=== PATIENT | female | born 1970 | race Caucasian/White ===

== ENCOUNTER 2021-09-30 20:22 | Inpatient (IN) | payer MEDICAID, SELFPAY ==
[2021-09-30] VITALS (9 sets, daily range): BP systolic 140–178; BP diastolic 75–112; PULSE 94–111; RESP 21–31; TEMP 37.2; O2SAT 88–99
--- NOTE | ~2021-09-30 | XR_ITS ---
XR chest 1V portable DATE: 09/30/2021 20:55 INDICATION: Cough, shortness of breath. Smoker. TECHNIQUE: Portable AP chest on 09/30/2021 at 2043 hours COMPARISON: 09/27/2016 two-view chest FINDINGS: Cardiomegaly. There is pulmonary vascular congestion and redistribution. Is mild prominence of the minor fissure suggesting subpleural edema. Yasmin B-lines are noted consistent with pulmonary interstitial edema. There may be slight right pleural effusion. No pneumothorax. Aortic arch calcification. Diffuse osteopenia. IMPRESSION: Congestive heart failure with pulmonary interstitial and subpleural edema Reviewed, dictated and finalized at location J. PREPARATION SUPERVISOR
--- NOTE | ~2021-09-30 | CT_ITS ---
EXAMINATION: CTA chest PE protocol DATE: 09/30/2021 22:22 INDICATION: Shortness of breath. Productive cough. Elevated d-dimer. TECHNIQUE: Computed tomography angiography (CTA) of the chest was performed with 100 mL Omnipaque-350 intravenous contrast timed to evaluate the pulmonary arteries. Coronal maximum intensity projection 3D-reconstructions were created by the technologist. Automated exposure control and iterative reconst ruction technique were employed. Exam dose: 203.87 mGy-cm total exam DLP. COMPARISON: 09/30/2021 portable AP chest FINDINGS: There is diagnostic contrast enhancement of the pulmonary arteries and no evidence of pulmo nary embolism. No thoracic aortic aneurysm is evident. Cardiomegaly. No pericardial effusion. Very small right pleural effusion. There are scattered mild bilateral patchy pulmonary infiltrates, mildly involving right upper lobe an d to a greater extent both lower lobes. There are thickened interlobular septa. IMPRESSION: Cardiomegaly, small right pleural effusion, bilateral pulmonary patchy infiltrates and i nterstitial thickening suggesting pulmonary edema; pneumonia is not excluded No evidence of pulmonary embolism Reviewed, dictated and finalized at Location [facility]. Reviewed, dictated and finalized at location J. L MAKER IMPRESSION: Cardiomegaly, small right pleural effusion, bilateral pulmonary pa tchy infiltrates and interstitial thickening suggesting pulmonary edema; pneumo chetna is not excluded No evidence of pulmonary embolism
--- NOTE | ~2021-09-30 | US_ITS ---
EXAMINATION: US venous doppler LE DATE: 10/01/2021 11:43 INDICATION: Right lower limb swelling and pain TECHNIQUE: Grayscale ultrasound images without and with compression and Doppler ultrasound images of the right lower extremity veins were obtained. COMPARISON: None. FINDINGS: The visualized portions of right common femoral vein, profunda (deep) femoral vein, femoral vein, pop liteal vein, peroneal trunk, posterior tibial veins, peroneal veins, gastrocnemius vein and greater s aphenous vein outflow are patent. IMPRESSION: 1. No deep venous thrombosis in the right lower limb. Reviewed, dictated and finalized at location A. LTY DEAN
--- NOTE | 2021-09-30 20:32 | ECG_ITS ---
Measurements Intervals [place] Rate: 110 P: 55 FL: 155 QRS: -30 QRSD: 80 T: 137 QT: 316 QTc: 428 Interpretive Statements SINUS TACHYCARDIA LEFT ATRIAL ENLARGEMENT LEFT VENTRICULAR HYPERTROPHY AND ST-T CHANGE BORDERLINE ST-T WAVE ABNORMALITY- INF/HIGH LAT LEADS ABNORMAL ECG Electronically Signed On 10-01-2021 6:11:27 GEAR MACHINE OPERATOR by Adam Hameed D.O.
--- NOTE | 2021-09-30 20:39 | ED.SOB ---
HPI - SOB/Dyspnea General Chief Complaint: Shortness of Breath/Dyspnea Stated Complaint: dyspnea Time Seen by Provider: 09/30/21 20:28 Source: patient and RN notes reviewed Mode of arrival: EMS Limitations: no limitations History of Present Illness HPI Narrative: This is a 50 year old female smoker who presents for evaluation of shortness of breath. Patient states over 1 month ago she was started on antibiotics for sore throat. She felt mildly better but she later developed sinus congestion with drainage and a productive cough. Her cough has progressively worsened. Last night her symptoms worsened. She states when she lays back she feel like she is having significant postnasal drainage and shortness of breath. She also reports developed sweats last night and she became clammy. She denies chest pain, vomiting, abdominal pain, leg swelling or diarrhea. She has not received care after getting prescribed antibiotics. She denies history of asthma, copd or lung disease. Related Data Allergies Allergy/AdvReac Type Severity Reaction Status Date / Time No Known Allergies Allergy Verified 09/30/21 20:34 Review of Systems Review of Systems: All systems reviewed & are unremarkable except as noted in HPI and below Constitutional: Constitutional: Reports fatigue and Reports fever(s) ENT: Reports sore throat Cardiovascular: Cardiovascular: Denies chest pain Respiratory: Respiratory: Reports cough and Reports dyspnea Gastrointestinal: Gastrointestinal: Denies abdominal pain, Reports nausea and Denies vomiting PMFSH Past Medical History Medical History (Updated 10/01/21 @ 00:36 by Shahla Phan MD) Diabetes mellitus Surgical History Surgical History (Updated 09/30/21 @ 20:42 by Shahla Phan MD) History of hysterectomy Family History Family History (Updated 05/15/14 @ 07:13 by DOCTOR UNKNOWN) Mother Family history of arthritis Social History Social History (Updated 09/30/21 @ 20:42 by Shahla Phan MD) Smoking packs per day: 1 Smoking cigarettes per day: 20.0 Smoking status: Current every day smoker Alcohol intake: never Exam Const: General: alert and ill appearing Orientation/consciousness: patient oriented x3 Eyes: EOM: EOMs intact bilaterally Chest: Chest palpation & inspection: normal inspection of the chest Resp: Effort & Inspection: no retractions and tachypneic Auscultation: wheezes Cardio: Rate: tachycardic Rhythm: regular rhythm Heart sounds: no murmurs GI: GI Palp: Yes Soft to palpation, No Tenderness to palpation present (GI) and No Guarding due to palpation present (GI) Auscultation: normal bowel sounds Skin: General skin exam: normal color Rashes: no rashes Neuro: General: patient oriented x3, moves all extremities and CN's II-XI intact bilaterally Extrem: General: normal to inspection Psych: Mental Status: mental status grossly normal Affect: normal affect Course Reevaluation(s) Reevaluation #1: I Discussed with patient that she will be admitted . She has been found to have chf. Date: 10/01/21 Time: 00:33 Consultations Consultation #1: I have discussed case with DR. shah. She accepts patient to IMU. She recommends giving patient antibiotics for possible pneumonia due to leukocytosis and low grade fever Date: 10/01/21 Time: 00:34 Vital Signs Vital signs: Vital Signs Temperature 99.0 F 09/30/21 20:25 Pulse Rate 111 H 09/30/21 20:25 Respiratory Rate 30 H 09/30/21 20:25 Blood Pressure 178/112 H 09/30/21 20:25 Pulse Oximetry 93 09/30/21 20:25 Temperature 99.0 F 09/30/21 20:25 Pulse Rate 96 10/01/21 01:29 Respiratory Rate 26 H 10/01/21 01:29 Blood Pressure 140/83 10/01/21 01:29 Pulse Oximetry 94 10/01/21 01:29 MDM - SOB/Dyspnea Lab Data Attestation: I reviewed the patient's lab results. Result diagrams: 09/30/21 21:09 09/30/21 21:09 Labs: Lab Results 09/30/21
[2021-09-30] MEDS: methylPREDNISolone SOD SUCC 125 MG VIAL IV PUSH (20:47)
[2021-09-30] MEDS: ONDANSETRON INJ 4 MG/2 ML VIAL IV PUSH (20:47)
[2021-09-30] MEDS: IPRATROPIUM BR 0.02% INH SOLN 0.5 MG/2.5 ML VIAL INHALATION (20:56)
[2021-09-30] MEDS: ALBUTEROL SULFATE NEB 2.5 MG/0.5 ML INH 5 MG INHALATION (20:56)
[2021-09-30 21:08] LABS: Alveolar/Arterial O2 Gradient 110.5 mmHg; Base Excess ABG -0.9 mEq/l (+/-2.0); Carboxyhemoglobin 1.7 % THb (0-2.0); Fractional Inspired Oxygen 28 %; HCO3 ABG 22.2 mEq/l (22.0-26.0); Methemoglobin ABG 0.2 %THb (0-1.5); Oxygen Content ABG 19.4 %vol (16.0-22.0); PCO2 ABG 32.9 mmHg (35.0-45.0); PO2 ABG 50.3 mmHg (80.0-100.0); Reduced Hemoglobin 12.2 %THb (0-5.0); Total Hemoglobin 16.1 g/dL (12.0-18.0); pH ABG 7.447 (7.350-7.450)
[2021-09-30 21:09] LABS: Oxygen Saturation ABG 87.6 % (95.0-100.0)
[2021-09-30 21:10] LABS: Oxyhemoglobin 85.9 % THb (90.0-100.0); Site Drawn RIGHT BRACHIAL
[2021-09-30 21:11] LABS: Device NASAL CANNULA
[2021-09-30 21:17] LABS: Basophils Absolute Auto 0.1 K/mm3 (0.0-0.1); Basophils Percent Auto 0.8 % (0.2-1.2); Eosinophils Absolute Auto 0.3 K/mm3 (0-0.3); Hematocrit 48.6 % (37.0-47.0); Hemoglobin 16.2 g/dL (12.0-15.0); Immature Granulocyte Absolute 0.05 K/mm3 (0.00-0.031); Immature Granulocyte Percent A 0.4 % (0-0.5); Lymphocytes Absolute Auto 1.48 K/mm3 (0.9-3.2); Lymphocytes Percent Auto 10.7 % (18.3-44.2); Mean Corpuscular HGB Conc 33.3 g/dl (32-36); Mean Corpuscular Hemoglobin 29.8 pg (26-34); Mean Corpuscular Volume 89.5 fl (80-100); Mean Platelet Volume 10.8 fl (7.4-10.4); Monocytes Absolute Auto 0.7 K/mm3 (0.1-0.6); Monocytes Percent Auto 5.1 % (2.6-8.5); Neutrophils Absolute Auto 11.2 K/mm3 (1.3-6.7); Platelet Count Result 332 k/mm3 (150-375); Red Blood Count 5.43 M/mm3 (4.2-5.4); Red Cell Distribution Width 13.7 % (11.5-14.5); White Blood Count 13.8 K/mm3 (4.5-10.0)
[2021-09-30 21:25] LABS: Lactic Acid Reflex 1.7 mmol/L (0.7-2.1)
[2021-09-30 21:27] LABS: INR 1.1; Prothrombin Time 14.2 Seconds (11.1-14.7)
[2021-09-30 21:28] LABS: Alanine Aminotransferase 152 U/L (4-35); Albumin Level 3.6 g/dL (3.5-5.1); Alkaline Phosphatase 194 U/L (38-126); Anion Gap 6 mmol/L (8-16); Aspartate Amino Transferase 88 U/L (14-36); Bilirubin,Total 0.8 mg/dL (0.2-1.3); Blood Urea Nitrogen 13 mg/dL (7-17); Calcium 8.3 mg/dL (8.4-10.2); Carbon Dioxide 28 mmol/L (22-30); Chloride 99 mmol/L (98-107); Estimated CRCL calculation 109 ml/min; Estimated Glomerular Filt Rate > 60; Glucose 209 mg/dL (65-110); Magnesium 1.8 mg/dL (1.6-2.3); Partial Thromboplastin Time 24.6 SECONDS (22.3-36.8); Potassium 3.4 mmol/L (3.4-5.0); Sodium 133 mmol/L (137-145)
[2021-09-30 21:31] LABS: Beta-Hydroxybutyrate/Acetoacetate 0.35 mmol/L (0.02-0.27)
[2021-09-30 21:43] LABS: Add Urine Microscopic? YES; Appearance Urine Clear (Clear); Bilirubin Urine Negative (Negative); Blood Urine Negative (Negative); Color Urine Yellow (Yellow); Glucose Urine UA 3+ mg/dL (Negative); Ketones Urine Trace mg/dL (Negative); Leukocyte Esterase Ur Negative LEU/UL (Negative); Mucus Urine Rare /lpf; Nitrate Urine Negative (Negative); Protein Urine 2+ mg/dL (Negative); RBC Urine 0-2 /hpf (0-2); Squamous Epithelial Cell Urine Occasional /hpf (Few); WBC Urine 0-3 /hpf
[2021-09-30 21:44] LABS: Specific Grav Ur 1.032 (1.001-1.035)
[2021-09-30 21:47] LABS: NT Pro B Type Natriuretic Pept 7120 pg/mL (5-100); Troponin I 0.062 ng/mL (0.000-0.034)
--- NOTE | 2021-09-30 22:12 | PC.NURSE ---
Pt to CT at this time.
[2021-09-30 22:14] LABS: SARS-CoV-2 RNA PCR Negative
[2021-09-30] MEDS: FUROSEMIDE INJ 40 MG/4 ML VIAL IV PUSH (22:31)
[2021-10-01] VITALS (23 sets, daily range): BP systolic 126–149; BP diastolic 56–91; PULSE 84–103; RESP 18–28; TEMP 35.9–37.1; O2SAT 90–97; BMI 22.3
[2021-10-01] MEDS: NITROGLYCERIN OINTMENT 1 INCH DOSE TRANSDERM (01:01)
--- NOTE | 2021-10-01 03:02 | ADMGEN ---
This patient, Radha Powell, was admitted to IMU Room 205-01. Patient/family oriented to hospital policies and general routines including ID bracelet, bed and alarms, visiting hours, pain management, procedures, bathroom and other care routines, personal items, smoking policy, room service/diet, and visiting hours. Information on how to activate the Rapid Response Team has been discussed. Patient/Family are encouraged to report perceived risks to care and to ask questions if they do not understand what they are told or what they should do.
--- NOTE | 2021-10-01 04:51 | PM.IMHP ---
H&P: HPI History of Present Illness Date/Time: 10/01/21 02:00 Chief Complaint: Shortness of breath and cough for 1 month Narrative: 50-year-old female with past medical history type 1 diabetes mellitus who presented to the ER from home due to cough and shortness of breath for 1 month. The patient reports and she has had intermittent wheezing that is worse with lying supine and paroxysmal nocturnal dyspnea for 1 month. She reports that her cough is productive of thick clear sputum. She denies any weight gain in fact states that she has been having a mild weight loss over the last few months. She reports that her clothes feel looser. She states that she still has a good appetite and attributes her weight loss to living and active lifestyle. She does report intermittent dyspnea on exertion for the last month. She denies having any chest pain. She is unsure if she has been having any palpitations. She has noticed right calf pain for the last several days with some increased swelling of the right lower extremity. She has had intermittent bilateral ankle swelling on and off for years. She has been having some chills today. She reports that when she lays down to sleep she has been having episodes of diaphoresis and will wake up panic in have to sit on the edge of the bed to catch her breath. She has not been having any fevers. She has been having some mild nausea but denies any vomiting. She denies any recent ill contacts. She lives at home with her son in 2 grand children. She does smoke 1 pack of cigarettes per day. She has never been diagnosed with COPD. Her symptoms have not improved despite Robitussin and Mucinex. She has not seen a physician regarding her symptoms over the last month. He last saw In May when she thought she had strep throat. The patient reports that she had COVID-06 August 2020. She is not vaccinated against COVID. She has not had any recent ill contacts. Review of Systems Review of Systems: 12 systems were reviewed with pertinent positives and negatives per HPI. Except as documented in the HPI, all other systems were reviewed and are negative. [facility] Past Medical History Medical History (Updated 10/01/21 @ 05:32 by Dariela Laboy DO) Diabetes mellitus Diabetic nephropathy associated with type 1 diabetes mellitus Hyperlipidemia Tobacco use disorder, continuous Vitamin D deficiency Surgical History Surgical History (Updated 10/01/21 @ 05:24 by Dariela Laboy DO) History of total abdominal hysterectomy and bilateral salpingo-oophorectomy Due to endometriosis and uterine fibroids Family History Family History (Updated 10/01/21 @ 05:25 by Dariela Laboy DO) Mother Osteoarthritis In good health Father In good health Social History Social History (Updated 10/01/21 @ 05:26 by Dariela Laboy DO) Social History: The patient lives at home with her son, grandson and granddaughter. She has 2 other adult children. 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 She has smoked 1 pack of cigarettes per day since the age of 15. She reports occasional alcohol use in moderation. She denies listed substance use. Smoking packs per day: 1 Smoking cigarettes per day: 20.0 Years smoked: 35 Smoking pack-years: 35.00 Smoking status: Current every day smoker Tobacco type: cigarettes Alcohol intake: never Substance use: never Spiritual care concerns: No Comments The patient reports that her mother is in her 70s and is in good health. She reports that her father is in his early 80s and in good health. Meds Home Medications and Allergies Home Medications Medication Instructions Recorded Confirmed Type calcium carbonate 1,200 mg PO DAILY 10/01/21 10/01/21 History fivre-hhfgfalp-pem-turp-pet [Vicks 1 ea TOPICAL BID 10/01/21 10/01/21 History Vaporub] cholecalciferol (vitamin D3) 125 mcg PO DAILY 10/01/21 10/01/21 History [Vitamin
[2021-10-01 05:56] LABS: Cholesterol 149 mg/dL (0-200); HDL Direct 32 mg/dL; Triglycerides 53 mg/dL (<150)
[2021-10-01 06:07] LABS: LDL Cholesterol Direct 115 mg/dL
[2021-10-01 06:15] LABS: Troponin I 0.063 ng/mL (0.000-0.034)
[2021-10-01] MEDS: IPRATROPIUM BR 0.02% INH SOLN 0.5 MG/2.5 ML VIAL INHALATION ×3 (07:58→21:51)
[2021-10-01] MEDS: ALBUTEROL SULFATE NEB 2.5 MG/0.5 ML INH 5 MG INHALATION ×3 (07:58→21:51)
[2021-10-01 08:02] LABS: Hemoglobin A1C 11.9 % (<5.7)
[2021-10-01 08:31] LABS: Glucose Point of Care 439 mg/dl (65-105)
[2021-10-01] MEDS: ASPIRIN 81 MG CHEWABLE TABLET PO (08:47)
[2021-10-01] MEDS: CALCIUM CARBONATE (OSCAL) 500 MG TABLET 1000 MG PO (08:47)
[2021-10-01] MEDS: INSULIN GLARGINE (*BKC) 100 UNITS/ML 30 UNITS SUB-Q (08:47)
[2021-10-01] MEDS: FUROSEMIDE INJ 40 MG/4 ML VIAL IV PUSH ×2 (08:48→22:14)
[2021-10-01] MEDS: guaiFENesin 12 HR 600 MG TABCR PO ×2 (08:48→22:14)
[2021-10-01] MEDS: CHOLECALCIFEROL 1,000 UNITS TABLET 5000 UNITS PO (08:48)
--- NOTE | 2021-10-01 10:27 | PCNWS ---
Weekly nutritional screen. Pt screened in for MST 2. Spoke to pt via phone who reports that she has unintentionally lost approximately 10lbs since April of 2021. Pt associated the wt loss with working a lot and reported that she probably wasn't eating enough. Pt reports that her appetite is improving. Per EMR, pt is on a heart healthy diet and dietary supplement of ensure compact BID providing an additional 220kcal and 9g of protein. Pt agreed to drink dietary supplement. Per EMR, reported intake is 100%. Patient is tolerating current diet with adequate intake. No weight loss reported at this time. No nutritional needs at this time.
[2021-10-01] MEDS: INSULIN ASPART (*BKC) 100 UNITS/ML 12 UNITS SUB-Q (10:34)
--- NOTE | 2021-10-01 11:09 | PM.IMPN ---
Progress Note: A&P Assessment and Plan (1) Acute respiratory failure with hypoxia: Code(s): J96.01 - Acute respiratory failure with hypoxia Status: Acute Assessment and Plan: Most likely related to pulmonary edema secondary to CHF exacerbation cannot rule out pneumonia Continue empiric IV antibiotics pending culture Continue IV diuresis (2) Tobacco use disorder, continuous: Code(s): F17.209 - Nicotine dependence, unspecified, with unspecified nicotine-induced disorders Status: Acute Assessment and Plan: Counseling (3) Congestive heart failure: Qualifiers: Heart failure chronicity: acute Heart failure type: unspecified Qualified Code(s): I50.9 - Heart failure, unspecified Code(s): I50.9 - Heart failure, unspecified Status: Acute Assessment and Plan: Cardiology consult Echo IV Lasix Daily weight (4) Leukocytosis: Qualifiers: Leukocytosis type: unspecified Qualified Code(s): D72.829 - Elevated white blood cell count, unspecified Code(s): D72.829 - Elevated white blood cell count, unspecified Status: Acute Assessment and Plan: Probable pneumonia continue IV antibiotic pending culture (5) Transaminitis: Code(s): R74.01 - Elevation of levels of liver transaminase levels Status: Acute Assessment and Plan: Most likely related to hepatic congestion secondary to CHF monitor (6) Type 1 diabetes mellitus with hyperglycemia: Code(s): E10.65 - Type 1 diabetes mellitus with hyperglycemia Status: Acute Assessment and Plan: Uncontrolled continue Lantus continue insulin sliding scale Added lispro 6 units subcutaneous t.i.d. Subjective Date/time seen: 10/01/21 11:09 Interval history: 50 years old female presented to the hospital with 1 month history of shortness of breath and cough patient also complained of lower extremity swelling at the ER patient was found to have leukocytosis elevated D-dimer CT scan of the chest was done shows multifocal pneumonia versus pulmonary edema COVID-19 was negative cardiology was consulted patient was started on IV diuresis IV antibiotics Patient feels weak short of breath Patient denies fever headache chest pain I am seeing the patient for shortness of breath Exam Narrative: Alert Chest bilateral crackles Abdomen nontender nondistended CVS S1 + S2 Lower significant extremity edema Objective Data Vital Signs Vital Signs: Vital Signs - 24 hr 09/30/21 20:25 09/30/21 20:34 09/30/21 20:45 Temperature 99.0 F Pulse Rate 111 H 104 H Respiratory Rate 30 H 21 H Blood Pressure 178/112 H Pulse Oximetry 93 93 09/30/21 20:50 09/30/21 20:53 09/30/21 21:08 Temperature Pulse Rate 102 H 97 Respiratory Rate 27 H 28 H Blood Pressure 167/98 H Pulse Oximetry 88 L 92 99 09/30/21 21:15 09/30/21 22:30 09/30/21 23:27 Temperature Pulse Rate 97 94 104 H Respiratory Rate 31 H 25 H 28 H Blood Pressure 144/79 H 140/75 Pulse Oximetry 96 96 10/01/21 00:28 10/01/21 01:29 10/01/21 02:23 Temperature Pulse Rate 93 96 89 Respiratory Rate 24 H 26 H 28 H Blood Pressure 149/89 H 140/83 142/81 H Pulse Oximetry 96 94 95 10/01/21 02:59 10/01/21 03:10 10/01/21 04:00 Temperature 96.7 F L Pulse Rate 86 90 93 Respiratory Rate 24 H 20 Blood Pressure 126/64 137/82 Pulse Oximetry 97 90 90 10/01/21 06:00 10/01/21 07:42 10/01/21 08:06 Temperature 97.1 F L Pulse Rate 84 96 87 Respiratory Rate 22 H 20 Blood Pressure 146/75 H Pulse Oximetry 94 10/01/21 08:08 Temperature Pulse Rate Respiratory Rate Blood Pressure Pulse Oximetry 94 Intake/Output Intake/Output: Intake & Output 09/28/21 09/29/21 09/30/21 10/01/21 23:59 23:59 23:59 23:59 Intake Total 890 Output Total 1200 Balance -310 Meds/Results Medications: Active Medications Generic Name Dose Route Start Last Admin Trade Name Freq PRN [place]
[2021-10-01 11:52] LABS: Basophils Percent Auto 0.4 % (0.2-1.2); Eosinophils Percent Auto 0.1 % (0-4.4); Hematocrit 43.4 % (37.0-47.0); Hemoglobin 14.5 g/dL (12.0-15.0); Immature Granulocyte Absolute 0.05 K/mm3 (0.00-0.031); Immature Granulocyte Percent A 0.5 % (0-0.5); Lymphocytes Absolute Auto 0.94 K/mm3 (0.9-3.2); Lymphocytes Percent Auto 8.6 % (18.3-44.2); Mean Corpuscular HGB Conc 33.4 g/dl (32-36); Mean Corpuscular Volume 89.9 fl (80-100); Mean Platelet Volume 11.3 fl (7.4-10.4); Monocytes Absolute Auto 0.4 K/mm3 (0.1-0.6); Monocytes Percent Auto 3.9 % (2.6-8.5); Neutrophils Absolute Auto 9.4 K/mm3 (1.3-6.7); Neutrophils Percent Auto 86.5 % (45.5-73.1); Platelet Count Result 288 k/mm3 (150-375); Red Blood Count 4.83 M/mm3 (4.2-5.4); Red Cell Distribution Width 13.9 % (11.5-14.5); White Blood Count 10.9 K/mm3 (4.5-10.0)
[2021-10-01 12:02] LABS: Alanine Aminotransferase 113 U/L (4-35); Alkaline Phosphatase 147 U/L (38-126); Anion Gap 6 mmol/L (8-16); Aspartate Amino Transferase 55 U/L (14-36); Bilirubin,Total 0.6 mg/dL (0.2-1.3); Blood Urea Nitrogen 17 mg/dL (7-17); Calcium 8.2 mg/dL (8.4-10.2); Carbon Dioxide 30 mmol/L (22-30); Chloride 97 mmol/L (98-107); Estimated CRCL calculation 71 ml/min; Estimated Glomerular Filt Rate > 60; Glucose 606 mg/dL (65-110); Potassium 3.9 mmol/L (3.4-5.0); Sodium 133 mmol/L (137-145)
[2021-10-01] MEDS: cefTRIAXone 2 GM in SODIUM CHLORIDE 0.9% IV 100 ML 200 ML IVPB (12:33)
[2021-10-01] MEDS: INSULIN ASPART (*BKC) 100 UNITS/ML 25 UNITS SUB-Q (12:36)
[2021-10-01 12:41] LABS: Glucose Point of Care > 500 mg/dl (65-105)
[2021-10-01 14:01] LABS: Glucose Point of Care > 500 mg/dl (65-105)
[2021-10-01] MEDS: INSULIN ASPART (*BKC) 100 UNITS/ML 10 UNITS SUB-Q (15:08)
[2021-10-01] MEDS: INSULIN ASPART (*BKC) 100 UNITS/ML 6 UNITS SUB-Q (17:45)
[2021-10-01] MEDS: INSULIN ASPART (*BKC) 100 UNITS/ML SUB-Q (17:45)
[2021-10-01 18:00] LABS: Glucose Point of Care 220 mg/dl (65-105)
[2021-10-01 22:59] LABS: Glucose Point of Care 235 mg/dl (65-105)
[2021-10-02] VITALS (24 sets, daily range): BP systolic 130–157; BP diastolic 55–82; PULSE 76–110; RESP 16–20; TEMP 36.6–36.9; O2SAT 91–98
[2021-10-02] MEDS: IPRATROPIUM BR 0.02% INH SOLN 0.5 MG/2.5 ML VIAL INHALATION ×4 (02:39→20:05)
[2021-10-02] MEDS: ALBUTEROL SULFATE NEB 2.5 MG/0.5 ML INH 5 MG INHALATION ×4 (02:39→20:05)
--- NOTE | 2021-10-02 06:00 | ECHO_ITS ---
Patient Info Name: Radha Powell Age: 50 years : 1970 Gender: Female Ht: 67 in Wt: 142 lbs BSA: 1.75 m2 HR: 92 bpm BP: 130 / 55 mmHg Heart Rhythm: Sinus Rhythm Technical Quality: Good Exam Date: 10/02/2021 9:09 AM Exam Location: [facility] Room: Patient Status: Inpatient Admit Date: 10/01/2021 Staff Ordering Physician: Shahla Phan MD Inpatient Coder: Zoya Gong RDCS Attending Provider: Dariela Laboy DO Referring Physician: Emilie RIDLEY; Exam Type: CA echo doppler color flow Study Info Indications - chf sob Complete two-dimensional, color flow and Doppler transthoracic echocardiogram is performed. Summary 1. Complete two-dimensional, color flow and Doppler transthoracic echocardiogram is performed. 2. Mild left ventricular enlargement and hypertrophy. Severe global hypokinesis with no focal wall motion abnormalities. Ejection fraction 15-20%. Grade 2 diastolic dysfunction is present. 3. Moderate right ventricular enlargement moderate hypokinesis. 4. Left atrial chamber dimension is severely enlarged. 5. Right atrial chamber dimension is moderately enlarged. 6. There is mild mitral valve regurgitation. 7. There is mild tricuspid valve regurgitation. 8. There is mild pulmonic regurgitation. 9. Moderate pulmonary hypertension, estimated pulmonary arterial systolic pressure is 57 mmHg. 10. Dilated inferior vena cava with <50% collapse upon inspiration consistent with significantly elevated right atrial pressure, 20 mmHg. 11. There appears to be a very small ASD present with a small amount of dyzm-si-[id number] shunting by color flow and Doppler. 12. Normal sinus rhythm. 13. Global longitudinal strain of the left ventricle is severely abnormal at -9% consistent with severe systolic dysfunction. There is apical sparing, which can be seen with amyloid cardiomyopathy. 14. Consider further evaluation for cardia amyloid. Left Ventricle Left ventricular chamber dimension is mildly enlarged. Left ventricular systolic function is severely reduced, estimated at 15-20%. There is mildly increased left ventricular wall thickness. Left ventricular septal wall motion is normal. The left ventricular diastolic function is grade II diastolic dysfunction. Global longitudinal strain is severely elevated at -9 %. Right Ventricle Right ventricular chamber dimension is moderately enlarged. Right ventricular systolic function is reduced. Left Atria Left atrial chamber dimension is severely enlarged. Right Atria Right atrial chamber dimension is moderately enlarged. Aortic Valve The aortic valve is trileaflet. There is no aortic valve sclerosis. There is no aortic valve stenosis. There is no aortic valve regurgitation. Pulmonic Valve The pulmonic valve is normal. There is no pulmonic valve stenosis. There is mild pulmonic regurgitation. Mitral Valve The mitral valve has thickened leaflets. There is no mitral valve stenosis. There is mild mitral valve regurgitation. Tricuspid Valve The tricuspid valve leaflets are normal. There is no significant tricuspid valve stenosis. There is mild tricuspid valve regurgitation. Moderate pulmonary hypertension, estimated pulmonary arterial systolic pressure is 57 mmHg. Pericardium/Pleural The pericardium appears normal. There is no pericardial effusion. Inferior Vena Cava Dilated inferior vena cava with <50% collapse upon inspiration consistent with significantly elevat
[2021-10-02 06:03] LABS: Alanine Aminotransferase 116 U/L (4-35); Alkaline Phosphatase 125 U/L (38-126); Anion Gap 6 mmol/L (8-16); Aspartate Amino Transferase 62 U/L (14-36); Bilirubin,Total 0.7 mg/dL (0.2-1.3); Blood Urea Nitrogen 18 mg/dL (7-17); Calcium 8.2 mg/dL (8.4-10.2); Carbon Dioxide 29 mmol/L (22-30); Chloride 99 mmol/L (98-107); Estimated CRCL calculation 93 ml/min; Estimated Glomerular Filt Rate > 60; Glucose 244 mg/dL (65-110); Potassium 3.4 mmol/L (3.4-5.0); Sodium 134 mmol/L (137-145)
[2021-10-02 06:06] LABS: Basophils Absolute Auto 0.1 K/mm3 (0.0-0.1); Basophils Percent Auto 0.8 % (0.2-1.2); Eosinophils Absolute Auto 0.3 K/mm3 (0-0.3); Eosinophils Percent Auto 3.4 % (0-4.4); Hematocrit 42.3 % (37.0-47.0); Hemoglobin 14.3 g/dL (12.0-15.0); Immature Granulocyte Absolute 0.04 K/mm3 (0.00-0.031); Immature Granulocyte Percent A 0.4 % (0-0.5); Immature Platelet Fraction Pct 8.2 % (0.9-11.2); Lymphocytes Absolute Auto 1.98 K/mm3 (0.9-3.2); Lymphocytes Percent Auto 19.5 % (18.3-44.2); Mean Corpuscular HGB Conc 33.8 g/dl (32-36); Mean Corpuscular Volume 88.9 fl (80-100); Mean Platelet Volume 12.3 fl (7.4-10.4); Monocytes Absolute Auto 0.7 K/mm3 (0.1-0.6); Monocytes Percent Auto 6.8 % (2.6-8.5); Neutrophils Percent Auto 69.1 % (45.5-73.1); Platelet Count Result 229 k/mm3 (150-375); Red Blood Count 4.76 M/mm3 (4.2-5.4); Red Cell Distribution Width 13.9 % (11.5-14.5); White Blood Count 10.1 K/mm3 (4.5-10.0)
[2021-10-02 08:01] LABS: Glucose Point of Care 233 mg/dl (65-105)
[2021-10-02] MEDS: INSULIN ASPART (*BKC) 100 UNITS/ML SUB-Q ×2 (09:34→21:21)
[2021-10-02] MEDS: ASPIRIN 81 MG CHEWABLE TABLET PO (09:34)
[2021-10-02] MEDS: ENOXAPARIN 40 MG/0.4 ML SYRINGE SUB-Q (09:35)
[2021-10-02] MEDS: CALCIUM CARBONATE (OSCAL) 500 MG TABLET 1000 MG PO (09:35)
[2021-10-02] MEDS: CHOLECALCIFEROL 1,000 UNITS TABLET 5000 UNITS PO (09:35)
[2021-10-02] MEDS: INSULIN ASPART (*BKC) 100 UNITS/ML 6 UNITS SUB-Q ×2 (09:35→18:12)
[2021-10-02] MEDS: FUROSEMIDE INJ 40 MG/4 ML VIAL IV PUSH ×2 (09:36→21:21)
[2021-10-02] MEDS: guaiFENesin 12 HR 600 MG TABCR PO ×2 (09:36→21:35)
[2021-10-02] MEDS: INSULIN GLARGINE (*BKC) 100 UNITS/ML 30 UNITS SUB-Q (09:36)
--- NOTE | 2021-10-02 09:36 | PM.IMPN ---
Progress Note: A&P Assessment and Plan (1) Acute respiratory failure with hypoxia: Code(s): J96.01 - Acute respiratory failure with hypoxia Status: Acute Assessment and Plan: Most likely related to pulmonary edema secondary to CHF exacerbation cannot rule out pneumonia Continue empiric IV antibiotics pending culture Continue IV diuresis (2) Tobacco use disorder, continuous: Code(s): F17.209 - Nicotine dependence, unspecified, with unspecified nicotine-induced disorders Status: Acute Assessment and Plan: Counseling (3) Congestive heart failure: Qualifiers: Heart failure chronicity: acute Heart failure type: unspecified Qualified Code(s): I50.9 - Heart failure, unspecified Code(s): I50.9 - Heart failure, unspecified Status: Acute Assessment and Plan: Cardiology consult Echo IV Lasix Daily weight (4) Leukocytosis: Qualifiers: Leukocytosis type: unspecified Qualified Code(s): D72.829 - Elevated white blood cell count, unspecified Code(s): D72.829 - Elevated white blood cell count, unspecified Status: Acute Assessment and Plan: Probable pneumonia continue IV antibiotic pending culture (5) Transaminitis: Code(s): R74.01 - Elevation of levels of liver transaminase levels Status: Acute Assessment and Plan: Most likely related to hepatic congestion secondary to CHF monitor (6) Type 1 diabetes mellitus with hyperglycemia: Code(s): E10.65 - Type 1 diabetes mellitus with hyperglycemia Status: Acute Assessment and Plan: Uncontrolled continue Lantus continue insulin sliding scale Added lispro 6 units subcutaneous t.i.d. (7) COPD exacerbation: Code(s): J44.1 - Chronic obstructive pulmonary disease with (acute) exacerbation Status: Acute Assessment and Plan: Present on admission added nebulizer treatment if no improvement will add IV steroids Subjective Date/time seen: 10/02/21 09:36 Interval history: 50 years old female presented to the hospital with 1 month history of shortness of breath and cough patient also complained of lower extremity swelling at the ER patient was found to have leukocytosis elevated D-dimer CT scan of the chest was done shows multifocal pneumonia versus pulmonary edema COVID-19 was negative cardiology was consulted patient was started on IV diuresis IV antibiotics Patient feels weak short of breath better than yesterday on oxygen Patient has history of smoking Patient denies fever headache chest pain I am seeing the patient for shortness of breath Exam Narrative: Alert Chest bilateral crackles Abdomen nontender nondistended CVS S1 + S2 Lower significant extremity edema Objective Data Vital Signs Vital Signs: Vital Signs - 24 hr 10/01/21 10:00 10/01/21 12:00 10/01/21 14:00 Temperature 97.2 F L Pulse Rate 93 88 93 Respiratory Rate 18 Blood Pressure 134/66 Pulse Oximetry 96 10/01/21 14:23 10/01/21 16:00 10/01/21 18:00 Temperature 97.2 F L Pulse Rate 92 93 99 Respiratory Rate 20 18 Blood Pressure 127/56 L Pulse Oximetry 96 10/01/21 20:00 10/01/21 20:15 10/01/21 21:52 Temperature 98.7 F Pulse Rate 100 103 H 99 Respiratory Rate 20 20 Blood Pressure 147/91 H Pulse Oximetry 97 93 10/01/21 22:00 10/01/21 22:02 10/01/21 23:53 Temperature 98.6 F Pulse Rate 97 102 H 103 H Respiratory Rate 20 21 H Blood Pressure 140/72 Pulse Oximetry 95 10/02/21 00:00 10/02/21 02:00 10/02/21 02:40 Temperature Pulse Rate 96 94 90 Respiratory Rate 18 Blood Pressure Pulse Oximetry 10/02/21 03:48 10/02/21 04:00 10/02/21 06:00 Temperature 98.4 F Pulse Rate 100 81 91 Respiratory Rate 20 Blood Pressure 130/55 L Pulse Oximetry 96 10/02/21 08:00 10/02/21 08:36 10/02/21 08:49 Temperature 97.9 F Pulse Rate 93 88 92 Respiratory Rate 18 20 20 Blood Pressure 135/79 Pulse Oximet
[2021-10-02 12:25] LABS: Glucose Point of Care 472 mg/dl (65-105)
[2021-10-02] MEDS: INSULIN ASPART (*BKC) 100 UNITS/ML 25 UNITS SUB-Q (12:42)
[2021-10-02] MEDS: cefTRIAXone 2 GM in SODIUM CHLORIDE 0.9% IV 100 ML 200 ML IVPB (12:50)
--- NOTE | 2021-10-02 16:17 | PM.CNCAR ---
Assessment and Plan Assessment and plan (1) Acute combined systolic and diastolic congestive heart failure: Code(s): I50.41 - Acute combined systolic (congestive) and diastolic (congestive) heart failure Status: Acute Assessment and Plan: Patient presents with new CHF and has been found have a cardiomyopathy. Improving since admission. Etiology is unclear, no valve disease or significant hypertension. She has type 1 diabetes so we will of course need to rule out CAD but that seems unlikely. She does have a small ASD or large PFO but that is not likely the cause. No familial cardiomyopathy. Likely idiopathic. Possibly viral; could be secondary to COVID but I have not seen a COVID related myocarditis present this late. Continue with IV Lasix Start Entresto Start carvedilol Start spironolactone Check TSH Daily BMP Unable to use Farxiga or Jardiance because patient has type 1 diabetes Eventual ischemia evaluation, probably with a Lexiscan, can be done as an outpatient Will need an MRI to rule out amyloid (may be helpful in evaluating for myocarditis as well) at a later date because of the apical sparing noted on her global longitudinal strain. Reviewed with patient (2) Nonischemic cardiomyopathy: Code(s): I42.8 - Other cardiomyopathies Status: Acute Assessment and Plan: EF 15-20%. (3) COPD exacerbation: Code(s): J44.1 - Chronic obstructive pulmonary disease with (acute) exacerbation Status: Acute Assessment and Plan: Some of this may be a manifestation of CHF but the patient does have a history of smoking (4) Tobacco use disorder, continuous: Code(s): F17.209 - Nicotine dependence, unspecified, with unspecified nicotine-induced disorders Status: Acute Assessment and Plan: Tobacco cessation encouraged (5) Transaminitis: Code(s): R74.01 - Elevation of levels of liver transaminase levels Status: Acute Assessment and Plan: Probably hepatic congestion secondary to CHF (6) History of COVID-19: Code(s): Z86.16 - Personal history of COVID-19 Status: Acute Assessment and Plan: Had COVID July 2020. (7) Type 1 diabetes mellitus with hyperglycemia: Code(s): E10.65 - Type 1 diabetes mellitus with hyperglycemia Status: Acute Assessment and Plan: A1c was 11.9, so it does not appear well controlled. Treatment Per hospitalists History of Present Illness History of Present Illness Consult date/time: 10/02/21 16:17 Requesting physician: Parker Espitia M.A., MD Consult reason: congestive heart failure Reason For Visit: CHF, pneumonia, elevated troponin Narrative: Salas Powell is a 50 old female whom I was asked to see at the request of Dr. Espitia for my advice and opinion regarding her CHF, in consultation. The patient has been having trouble shortness of breath and cough which she thought was secondary to sinus problems for the last month. She has had some PND and orthopnea and has not been able to sleep well. No work she felt more tired than usual. She would wear out easily but did not have a lot of shortness of breath. She has had some lower extremity edema. She to the emergency room and was found to have new onset congestive heart failure. Her echocardiogram showed 4 chamber enlargement with severe global left ventricular hypokinesis, EF 15-20%. Mild valve disease, small ASD or large PFO present. The patient had COVID in July 2020 and did not require hospitalization. The patient has a history of type 1 diabetes. No hypertension. She does have hyperlipidemia. No thyroid disease. She does smoke. No family history of heart disease. Review of Systems Constitutional: Constitutional: Reports fatigue, Reports lethargy and Reports weakness Eyes: Eyes: Reports no
[2021-10-02 16:26] LABS: Glucose Point of Care 165 mg/dl (65-105)
[2021-10-02 20:43] LABS: Glucose Point of Care 316 mg/dl (65-105)
[2021-10-02] MEDS: carvediloL 3.125 MG TABLET PO (21:21)
[2021-10-02] MEDS: SACUBITRIL/VALSARTAN 24-26 MG TABLET 1 TAB PO (21:22)
[2021-10-03] VITALS (22 sets, daily range): BP systolic 117–136; BP diastolic 62–88; PULSE 54–98; RESP 18–20; TEMP 36–36.3; O2SAT 92–98
[2021-10-03] MEDS: IPRATROPIUM BR 0.02% INH SOLN 0.5 MG/2.5 ML VIAL INHALATION ×4 (02:15→20:31)
[2021-10-03] MEDS: ALBUTEROL SULFATE NEB 2.5 MG/0.5 ML INH 5 MG INHALATION ×4 (02:16→20:31)
[2021-10-03 05:38] LABS: Basophils Absolute Auto 0.1 K/mm3 (0.0-0.1); Eosinophils Absolute Auto 0.8 K/mm3 (0-0.3); Eosinophils Percent Auto 8.8 % (0-4.4); Hematocrit 47.9 % (37.0-47.0); Immature Granulocyte Absolute 0.02 K/mm3 (0.00-0.031); Immature Granulocyte Percent A 0.2 % (0-0.5); Lymphocytes Absolute Auto 2.52 K/mm3 (0.9-3.2); Lymphocytes Percent Auto 27.3 % (18.3-44.2); Mean Corpuscular HGB Conc 33.4 g/dl (32-36); Mean Corpuscular Hemoglobin 29.9 pg (26-34); Mean Corpuscular Volume 89.5 fl (80-100); Mean Platelet Volume 11.2 fl (7.4-10.4); Monocytes Absolute Auto 0.8 K/mm3 (0.1-0.6); Monocytes Percent Auto 8.2 % (2.6-8.5); Neutrophils Percent Auto 54.5 % (45.5-73.1); Platelet Count Result 310 k/mm3 (150-375); Red Blood Count 5.35 M/mm3 (4.2-5.4); Red Cell Distribution Width 13.9 % (11.5-14.5); White Blood Count 9.2 K/mm3 (4.5-10.0)
[2021-10-03 06:08] LABS: Alanine Aminotransferase 97 U/L (4-35); Albumin Level 3.1 g/dL (3.5-5.1); Alkaline Phosphatase 150 U/L (38-126); Anion Gap 7 mmol/L (8-16); Aspartate Amino Transferase 41 U/L (14-36); Bilirubin,Total 0.7 mg/dL (0.2-1.3); Blood Urea Nitrogen 14 mg/dL (7-17); Calcium 8.2 mg/dL (8.4-10.2); Carbon Dioxide 31 mmol/L (22-30); Chloride 98 mmol/L (98-107); Estimated CRCL calculation 93 ml/min; Estimated Glomerular Filt Rate > 60; Glucose 216 mg/dL (65-110); Potassium 3.1 mmol/L (3.4-5.0); Sodium 136 mmol/L (137-145)
[2021-10-03 06:38] LABS: Thyroid Stimulating Hormone 0.569 uIU/mL (0.465-4.680)
[2021-10-03 07:39] LABS: Glucose Point of Care 261 mg/dl (65-105)
[2021-10-03] MEDS: ASPIRIN 81 MG CHEWABLE TABLET PO (08:51)
[2021-10-03] MEDS: guaiFENesin 12 HR 600 MG TABCR PO ×2 (08:52→21:02)
[2021-10-03] MEDS: carvediloL 3.125 MG TABLET PO ×2 (08:52→21:02)
[2021-10-03] MEDS: CALCIUM CARBONATE (OSCAL) 500 MG TABLET 1000 MG PO (08:52)
[2021-10-03] MEDS: CHOLECALCIFEROL 1,000 UNITS TABLET 5000 UNITS PO (08:53)
[2021-10-03] MEDS: ENOXAPARIN 40 MG/0.4 ML SYRINGE SUB-Q (08:53)
[2021-10-03] MEDS: FUROSEMIDE INJ 40 MG/4 ML VIAL IV PUSH (08:53)
[2021-10-03] MEDS: INSULIN GLARGINE (*BKC) 100 UNITS/ML 30 UNITS SUB-Q (08:54)
[2021-10-03] MEDS: INSULIN ASPART (*BKC) 100 UNITS/ML SUB-Q ×2 (08:54→12:39)
[2021-10-03] MEDS: INSULIN ASPART (*BKC) 100 UNITS/ML 6 UNITS SUB-Q (08:54)
--- NOTE | 2021-10-03 09:20 | PM.IMPN ---
Progress Note: A&P Assessment and Plan (1) Acute respiratory failure with hypoxia: Code(s): J96.01 - Acute respiratory failure with hypoxia Status: Acute Assessment and Plan: Most likely related to pulmonary edema secondary to CHF exacerbation cannot rule out pneumonia Continue empiric IV antibiotics pending culture Increase Lasix to 60 mg IV twice a day on 10/03/2021 replace potassium check magnesium (2) Tobacco use disorder, continuous: Code(s): F17.209 - Nicotine dependence, unspecified, with unspecified nicotine-induced disorders Status: Acute Assessment and Plan: Counseling (3) Congestive heart failure: Qualifiers: Heart failure chronicity: acute Heart failure type: unspecified Qualified Code(s): I50.9 - Heart failure, unspecified Code(s): I50.9 - Heart failure, unspecified Status: Acute Assessment and Plan: Cardiology consult Echo IV Lasix as above Daily weight (4) Leukocytosis: Qualifiers: Leukocytosis type: unspecified Qualified Code(s): D72.829 - Elevated white blood cell count, unspecified Code(s): D72.829 - Elevated white blood cell count, unspecified Status: Acute Assessment and Plan: Probable pneumonia continue IV antibiotic (5) Transaminitis: Code(s): R74.01 - Elevation of levels of liver transaminase levels Status: Acute Assessment and Plan: Most likely related to hepatic congestion secondary to CHF monitor (6) Type 1 diabetes mellitus with hyperglycemia: Code(s): E10.65 - Type 1 diabetes mellitus with hyperglycemia Status: Acute Assessment and Plan: Uncontrolled continue Lantus continue insulin sliding scale Added lispro 10 units subcutaneous t.i.d. continue Lantus at current dose (7) COPD exacerbation: Code(s): J44.1 - Chronic obstructive pulmonary disease with (acute) exacerbation Status: Acute Assessment and Plan: Present on admission added nebulizer treatment if no improvement will add IV steroids (8) Hypokalemia: Code(s): E87.6 - Hypokalemia Status: Acute Assessment and Plan: Replace potassium check magnesium Expect discharge in 2 days Subjective Date/time seen: 10/03/21 09:20 Interval history: 50 years old female presented to the hospital with 1 month history of shortness of breath and cough patient also complained of lower extremity swelling at the ER patient was found to have leukocytosis elevated D-dimer CT scan of the chest was done shows multifocal pneumonia versus pulmonary edema COVID-19 was negative cardiology was consulted patient was started on IV diuresis IV antibiotics Patient feels weak short of breath better than yesterday patient still on oxygen patient has upper and lower extremity edema she has intermittent cough Patient has history of smoking Patient denies fever headache chest pain I am seeing the patient for shortness of breath Exam Narrative: Alert Chest bilateral crackles Abdomen nontender nondistended CVS S1 + S2 Lower significant extremity edema Objective Data Vital Signs Vital Signs: Vital Signs - 24 hr 10/02/21 10:00 10/02/21 12:00 10/02/21 14:00 Temperature 97.8 F Pulse Rate 101 H 93 95 Respiratory Rate 16 Blood Pressure 135/65 Pulse Oximetry 95 10/02/21 14:36 10/02/21 14:39 10/02/21 16:00 Temperature 98.1 F Pulse Rate 90 90 102 H Respiratory Rate 20 20 18 Blood Pressure 157/69 H Pulse Oximetry 97 91 10/02/21 18:00 10/02/21 19:47 10/02/21 19:48 Temperature Pulse Rate 110 H 92 88 Respiratory Rate 20 20 Blood Pressure Pulse Oximetry 94 10/02/21 19:58 10/02/21 20:00 10/02/21 20:25 Temperature 98 F Pulse Rate 90 102 H 107 H Respiratory Rate 20 17 Blood Pressure 153/82 H Pulse Oximetry 97 10/02/21 21:21 10/02/21 22:00 10/02/21 23:03 Temperature 98.2 F Pulse Rate 103 H 94 101 H Respiratory Rate 18 Blood Pressure
[2021-10-03 09:36] LABS: Magnesium 1.8 mg/dL (1.6-2.3)
[2021-10-03] MEDS: SACUBITRIL/VALSARTAN 24-26 MG TABLET 1 TAB PO ×2 (09:51→21:02)
[2021-10-03] MEDS: POTASSIUM CHLORIDE 20 MEQ TABLET 40 MEQ PO ×2 (09:51→12:38)
[2021-10-03] MEDS: SPIRONOLACTONE 25 MG TABLET PO (09:51)
--- NOTE | 2021-10-03 11:54 | PM.PNCARD ---
Progress Note: A&P Assessment and Plan (1) Acute combined systolic and diastolic congestive heart failure: Code(s): I50.41 - Acute combined systolic (congestive) and diastolic (congestive) heart failure Status: Acute Assessment and Plan: Patient presents with new CHF and has been found have a cardiomyopathy. Improving since admission. Etiology is unclear, probably idiopathic. Possibly viral; could be secondary to COVID but I have not seen a COVID-related myocarditis present this late. She has type 1 diabetes so we will of course need to rule out CAD but that seems unlikely. She does have a small ASD or large PFO but that is not likely the cause. Continue with IV Lasix; change to PO Monday or Monday. Daily BMP Started Entresto, carvedilol, spironolactone Daily BMP Unable to use Farxiga or Jardiance because patient has type 1 diabetes Eventual ischemia evaluation, probably with a Lexiscan, can be done as an outpatient Apical sparing noted on her global longitudinal strain which is seen with amyloid. Pt does not fit the usual clinical picture of amyloid, but will evaluate. SPEP and USEP, serum light chains pending. Will need an MRI to rule out amyloid (may be helpful in evaluating for myocarditis as well) at a later date as well as a pyrophosphate scan. Counseled pt re: CM, tx, etc. (2) Nonischemic cardiomyopathy: Code(s): I42.8 - Other cardiomyopathies Status: Acute Assessment and Plan: EF 15-20%. (3) At risk for sudden cardiac : Code(s): Z91.89 - Other specified personal risk factors, not elsewhere classified Status: Acute Assessment and Plan: EF < 35%, at risk for sudden cardiac . Counseled patient Discussed possible LifeVest, possible eventual need for ICD and provided patient some literature regarding LifeVest Patient will let us know tomorrow if she would like it ordered. (4) Hypokalemia: Code(s): E87.6 - Hypokalemia Status: Acute Assessment and Plan: Supplement. (5) COPD exacerbation: Code(s): J44.1 - Chronic obstructive pulmonary disease with (acute) exacerbation Status: Acute Assessment and Plan: Some of this may be a manifestation of CHF but the patient does have a history of smoking (6) Tobacco use disorder, continuous: Code(s): F17.209 - Nicotine dependence, unspecified, with unspecified nicotine-induced disorders Status: Acute Assessment and Plan: Tobacco cessation encouraged (7) Transaminitis: Code(s): R74.01 - Elevation of levels of liver transaminase levels Status: Acute Assessment and Plan: Probably hepatic congestion secondary to CHF (8) History of COVID-19: Code(s): Z86.16 - Personal history of COVID-19 Status: Acute Assessment and Plan: Had COVID July 2020. (9) Type 1 diabetes mellitus with hyperglycemia: Code(s): E10.65 - Type 1 diabetes mellitus with hyperglycemia Status: Acute Assessment and Plan: A1c was 11.9, so it does not appear well controlled. Treatment Per hospitalists Subjective Date/time seen: 10/03/21 11:55 Interval history: Follow-up for new onset of CHF and idiopathic cardiomyopathy. Ejection fraction 15-20%. Date of service 10/03/2021: Feels better, walking in halls with no shortness of breath or lightheadedness. Still orthopneic. Blood pressures been stable with initiation of new medications. I's and O's yesterday: 1800 in, 4000 out. Potassium is low today. Review of Systems Constitutional: Constitutional: Denies weakness Eyes: Eyes: Reports no additional eye complaints ENT: Denies epistaxis Cardiovascular: Cardiovascular: Denies chest pain, Denies pedal edema and Denies lightheadedness Respiratory: Respiratory: Reports dyspnea (Orthopneic) and D
[2021-10-03] MEDS: cefTRIAXone 2 GM in SODIUM CHLORIDE 0.9% IV 100 ML 200 ML IVPB (12:39)
[2021-10-03] MEDS: INSULIN ASPART (*BKC) 100 UNITS/ML 10 UNITS SUB-Q (12:39)
[2021-10-03 13:13] LABS: Glucose Point of Care 324 mg/dl (65-105)
[2021-10-03 13:51] LABS: Glucose Point of Care 319 mg/dl (65-105)
[2021-10-03 17:06] LABS: Glucose Point of Care 73 mg/dl (65-105)
[2021-10-03 17:06] LABS: Glucose Point of Care 122 mg/dl (65-105)
[2021-10-03 18:09] LABS: Glucose Point of Care 67 mg/dl (65-105)
[2021-10-03] MEDS: FUROSEMIDE INJ 40 MG/4 ML VIAL 60 MG IV PUSH (21:03)
[2021-10-03 21:41] LABS: Glucose Point of Care 306 mg/dl (65-105)
[2021-10-04] VITALS (24 sets, daily range): BP systolic 111–162; BP diastolic 66–102; PULSE 72–105; RESP 18–20; TEMP 36–36.7; O2SAT 93–98
[2021-10-04] MEDS: IPRATROPIUM BR 0.02% INH SOLN 0.5 MG/2.5 ML VIAL INHALATION ×4 (01:43→20:47)
[2021-10-04] MEDS: ALBUTEROL SULFATE NEB 2.5 MG/0.5 ML INH 5 MG INHALATION ×2 (01:44→08:42)
[2021-10-04 05:05] LABS: Basophils Absolute Auto 0.1 K/mm3 (0.0-0.1); Basophils Percent Auto 1.1 % (0.2-1.2); Eosinophils Absolute Auto 0.9 K/mm3 (0-0.3); Eosinophils Percent Auto 10.6 % (0-4.4); Hematocrit 50.2 % (37.0-47.0); Hemoglobin 16.6 g/dL (12.0-15.0); Immature Granulocyte Absolute 0.02 K/mm3 (0.00-0.031); Immature Granulocyte Percent A 0.2 % (0-0.5); Lymphocytes Percent Auto 36.1 % (18.3-44.2); Mean Corpuscular HGB Conc 33.1 g/dl (32-36); Mean Corpuscular Hemoglobin 29.7 pg (26-34); Mean Platelet Volume 11.1 fl (7.4-10.4); Monocytes Absolute Auto 0.7 K/mm3 (0.1-0.6); Monocytes Percent Auto 8.2 % (2.6-8.5); Neutrophils Absolute Auto 3.5 K/mm3 (1.3-6.7); Neutrophils Percent Auto 43.8 % (45.5-73.1); Platelet Count Result 333 k/mm3 (150-375); Red Blood Count 5.58 M/mm3 (4.2-5.4); Red Cell Distribution Width 13.6 % (11.5-14.5)
[2021-10-04 05:22] LABS: Alanine Aminotransferase 79 U/L (4-35); Alkaline Phosphatase 128 U/L (38-126); Anion Gap 7 mmol/L (8-16); Aspartate Amino Transferase 34 U/L (14-36); Bilirubin,Total 0.5 mg/dL (0.2-1.3); Blood Urea Nitrogen 14 mg/dL (7-17); Calcium 8.4 mg/dL (8.4-10.2); Carbon Dioxide 28 mmol/L (22-30); Chloride 102 mmol/L (98-107); Estimated CRCL calculation 93 ml/min; Estimated Glomerular Filt Rate > 60; Glucose 127 mg/dL (65-110); Potassium 3.2 mmol/L (3.4-5.0); Sodium 137 mmol/L (137-145)
[2021-10-04 08:39] LABS: Glucose Point of Care 133 mg/dl (65-105)
[2021-10-04] MEDS: ASPIRIN 81 MG CHEWABLE TABLET PO (09:28)
[2021-10-04] MEDS: SPIRONOLACTONE 25 MG TABLET PO (09:28)
[2021-10-04] MEDS: CALCIUM CARBONATE (OSCAL) 500 MG TABLET 1000 MG PO (09:28)
[2021-10-04] MEDS: ENOXAPARIN 40 MG/0.4 ML SYRINGE SUB-Q (09:28)
[2021-10-04] MEDS: FUROSEMIDE INJ 40 MG/4 ML VIAL 60 MG IV PUSH (09:28)
[2021-10-04] MEDS: carvediloL 3.125 MG TABLET PO (09:29)
[2021-10-04] MEDS: SACUBITRIL/VALSARTAN 24-26 MG TABLET 1 TAB PO ×2 (09:29→21:14)
[2021-10-04] MEDS: guaiFENesin 12 HR 600 MG TABCR PO ×2 (09:29→21:13)
[2021-10-04] MEDS: CHOLECALCIFEROL 1,000 UNITS TABLET 5000 UNITS PO (09:29)
[2021-10-04] MEDS: POTASSIUM CHLORIDE 20 MEQ TABLET.ER PO (09:29)
[2021-10-04] MEDS: INSULIN GLARGINE (*BKC) 100 UNITS/ML 25 UNITS SUB-Q (09:41)
[2021-10-04] MEDS: INSULIN ASPART (*BKC) 100 UNITS/ML SUB-Q ×4 (09:41→21:14)
--- NOTE | 2021-10-04 10:03 | PM.PNCARD ---
Progress Note: A&P Assessment and Plan (1) Acute combined systolic and diastolic congestive heart failure: Code(s): I50.41 - Acute combined systolic (congestive) and diastolic (congestive) heart failure Status: Acute Assessment and Plan: Patient presents with new CHF and has been found have a cardiomyopathy. Improving since admission. Etiology is unclear, probably idiopathic. Possibly viral; could be secondary to COVID but I have not seen a COVID-related myocarditis present this late. She has type 1 diabetes so we will of course need to rule out CAD but that seems unlikely. She does have a small ASD or large PFO but that is not likely the cause. Continue with IV Lasix; change to PO Monday or Monday. Daily BMP Started Entresto, carvedilol, spironolactone Daily BMP Unable to use Farxiga or Jardiance because patient has type 1 diabetes Eventual ischemia evaluation, probably with a Lexiscan, can be done as an outpatient Apical sparing noted on her global longitudinal strain which is seen with amyloid. Pt does not fit the usual clinical picture of amyloid, but will evaluate. SPEP and USEP, serum light chains pending. Will need an MRI to rule out amyloid (may be helpful in evaluating for myocarditis as well) at a later date as well as a pyrophosphate scan. Counseled pt re: CM, tx, etc. Will increase carvedilol to 6.25 mg p.o. b.i.d.. Reduce IV furosemide down to 40 mg p.o. b.i.d. (2) Nonischemic cardiomyopathy: Code(s): I42.8 - Other cardiomyopathies Status: Acute Assessment and Plan: EF 15-20%. (3) At risk for sudden cardiac : Code(s): Z91.89 - Other specified personal risk factors, not elsewhere classified Status: Acute Assessment and Plan: EF < 35%, at risk for sudden cardiac . Counseled patient Discussed possible LifeVest, possible eventual need for ICD and provided patient some literature regarding LifeVest Patient will let us know tomorrow if she would like it ordered. (4) Hypokalemia: Code(s): E87.6 - Hypokalemia Status: Acute Assessment and Plan: Will supplement with 40 mg p.o. x1. (5) COPD exacerbation: Code(s): J44.1 - Chronic obstructive pulmonary disease with (acute) exacerbation Status: Acute Assessment and Plan: Some of this may be a manifestation of CHF but the patient does have a history of smoking (6) Tobacco use disorder, continuous: Code(s): F17.209 - Nicotine dependence, unspecified, with unspecified nicotine-induced disorders Status: Acute Assessment and Plan: Tobacco cessation encouraged (7) Transaminitis: Code(s): R74.01 - Elevation of levels of liver transaminase levels Status: Acute Assessment and Plan: Probably hepatic congestion secondary to CHF (8) History of COVID-19: Code(s): Z86.16 - Personal history of COVID-19 Status: Acute Assessment and Plan: Had COVID July 2020. (9) Type 1 diabetes mellitus with hyperglycemia: Code(s): E10.65 - Type 1 diabetes mellitus with hyperglycemia Status: Acute Assessment and Plan: A1c was 11.9, so it does not appear well controlled. Treatment Per hospitalists Subjective Date/time seen: 10/04/21 10:03 Interval history: Follow-up for new onset of CHF and idiopathic cardiomyopathy. Ejection fraction 15-20%. Date of service 10/03/2021: Feels better, walking in halls with no shortness of breath or lightheadedness. Still orthopneic. Blood pressures been stable with initiation of new medications. I's and O's yesterday: 1800 in, 4000 out. Potassium is low today. Date of service 10/04/2021: Still feels better. No chest pain. No shortness of breath. Still wheezy Review of Systems Constitutional: Constitutional: Reports fatigue, Reports nate
--- NOTE | 2021-10-04 11:12 | PM.IMPN ---
Progress Note: A&P Assessment and Plan (1) Acute respiratory failure with hypoxia: Code(s): J96.01 - Acute respiratory failure with hypoxia Status: Acute Assessment and Plan: Most likely related to pulmonary edema secondary to CHF exacerbation with superimposed pneumonia Continue empiric IV antibiotics pending culture Treated with IV Lasix plan to switch to oral Lasix today versus in a.m. as per Cardiology (2) Tobacco use disorder, continuous: Code(s): F17.209 - Nicotine dependence, unspecified, with unspecified nicotine-induced disorders Status: Acute Assessment and Plan: Counseling (3) Congestive heart failure: Qualifiers: Heart failure chronicity: acute Heart failure type: unspecified Qualified Code(s): I50.9 - Heart failure, unspecified Code(s): I50.9 - Heart failure, unspecified Status: Acute Assessment and Plan: Cardiology consult Echo Lasix management per Cardiology Daily weight (4) Leukocytosis: Qualifiers: Leukocytosis type: unspecified Qualified Code(s): D72.829 - Elevated white blood cell count, unspecified Code(s): D72.829 - Elevated white blood cell count, unspecified Status: Acute Assessment and Plan: Probable pneumonia continue IV antibiotic (5) Transaminitis: Code(s): R74.01 - Elevation of levels of liver transaminase levels Status: Acute Assessment and Plan: Most likely related to hepatic congestion secondary to CHF monitor (6) Type 1 diabetes mellitus with hyperglycemia: Code(s): E10.65 - Type 1 diabetes mellitus with hyperglycemia Status: Acute Assessment and Plan: Uncontrolled continue Lantus continue insulin sliding scale Patient had episodes of hypoglycemia yesterday Blood sugar uncontrolled Decrease Lantus to 25 units daily and decreased NovoLog to 5 units t.i.d. (7) COPD exacerbation: Code(s): J44.1 - Chronic obstructive pulmonary disease with (acute) exacerbation Status: Acute Assessment and Plan: Present on admission added nebulizer treatment improved (8) Hypokalemia: Code(s): E87.6 - Hypokalemia Status: Acute Assessment and Plan: Replaced Expect discharge in the next 24-48 hours once hyperglycemia improved Subjective Date/time seen: 10/04/21 11:12 Interval history: 50 years old female presented to the hospital with 1 month history of shortness of breath and cough patient also complained of lower extremity swelling at the ER patient was found to have leukocytosis elevated D-dimer CT scan of the chest was done shows multifocal pneumonia versus pulmonary edema COVID-19 was negative cardiology was consulted patient was started on IV diuresis IV antibiotics Shortness of breath has significantly improved lower extremity edema has significantly improved Patient still have uncontrolled diabetes patient had episodes of hyperglycemia and hypoglycemia Insulin dose will be adjusted today Patient has history of smoking Patient denies fever headache chest pain I am seeing the patient for shortness of breath Exam Narrative: Alert Chest bilateral crackles Abdomen nontender nondistended CVS S1 + S2 Lower significant extremity edema Objective Data Vital Signs Vital Signs: Vital Signs - 24 hr 10/03/21 12:00 10/03/21 13:21 10/03/21 13:43 Temperature 97.1 F L Pulse Rate 91 91 75 Respiratory Rate 20 20 Blood Pressure 123/81 Pulse Oximetry 97 98 10/03/21 13:47 10/03/21 14:00 10/03/21 16:00 Temperature Pulse Rate 80 98 78 Respiratory Rate 20 Blood Pressure Pulse Oximetry 10/03/21 17:11 10/03/21 18:00 10/03/21 20:00 Temperature 97.4 F L 97.0 F L Pulse Rate 87 97 98 Respiratory Rate 20 20 Blood Pressure 117/73 131/88 Pulse Oximetry 96 97 10/03/21 20:32 10/03/21 20:37 10/03/21 21:02 Temperature Pulse Rate 81 82 54 L Respiratory Rate Blood Pressure Pulse Oximetry
[2021-10-04 12:59] LABS: Glucose Point of Care 353 mg/dl (65-105)
[2021-10-04] MEDS: POTASSIUM CHLORIDE 20 MEQ TABLET 40 MEQ PO (13:16)
[2021-10-04] MEDS: cefTRIAXone 2 GM in SODIUM CHLORIDE 0.9% IV 100 ML 200 ML IVPB (13:16)
[2021-10-04] MEDS: ALBUTEROL SULFATE NEB 2.5 MG/0.5 ML INH INHALATION ×2 (14:16→20:46)
[2021-10-04 16:26] LABS: Glucose Point of Care 41 mg/dl (65-105)
[2021-10-04 16:58] LABS: Glucose Point of Care 98 mg/dl (65-105)
[2021-10-04 21:13] LABS: Glucose Point of Care 465 mg/dl (65-105)
[2021-10-04] MEDS: FUROSEMIDE INJ 40 MG/4 ML VIAL IV PUSH (21:13)
[2021-10-04] MEDS: carvediloL 6.25 MG TABLET PO (21:13)
[2021-10-05] VITALS (11 sets, daily range): BP systolic 118–120; BP diastolic 60–85; PULSE 84–97; RESP 16–20; TEMP 36.4–36.9; O2SAT 96–97
[2021-10-05] MEDS: IPRATROPIUM BR 0.02% INH SOLN 0.5 MG/2.5 ML VIAL INHALATION ×3 (01:27→13:47)
[2021-10-05] MEDS: ALBUTEROL SULFATE NEB 2.5 MG/0.5 ML INH INHALATION ×3 (01:27→13:47)
--- NOTE | 2021-10-05 01:53 | PC.NURSE ---
This patient, Radha Powell, was transferred to [[id number] ] on 10/05/21 at 0153. Personal belongings sent with patient. Report given to [claudia [email or web address] ]. Appropriate documentation sent with patient.
--- NOTE | 2021-10-05 02:15 | PC.NURSE ---
Received from W/C from IMU Telemetry placed Pt. oriented to room, call light in reach.
[2021-10-05 06:09] LABS: Basophils Absolute Auto 0.1 K/mm3 (0.0-0.1); Basophils Percent Auto 1.2 % (0.2-1.2); Eosinophils Absolute Auto 0.6 K/mm3 (0-0.3); Eosinophils Percent Auto 7.4 % (0-4.4); Hematocrit 50.2 % (37.0-47.0); Hemoglobin 16.6 g/dL (12.0-15.0); Immature Granulocyte Absolute 0.03 K/mm3 (0.00-0.031); Immature Granulocyte Percent A 0.4 % (0-0.5); Lymphocytes Absolute Auto 2.62 K/mm3 (0.9-3.2); Lymphocytes Percent Auto 31.3 % (18.3-44.2); Mean Corpuscular HGB Conc 33.1 g/dl (32-36); Mean Corpuscular Hemoglobin 29.7 pg (26-34); Mean Corpuscular Volume 89.8 fl (80-100); Monocytes Absolute Auto 0.6 K/mm3 (0.1-0.6); Monocytes Percent Auto 7.1 % (2.6-8.5); Neutrophils Absolute Auto 4.4 K/mm3 (1.3-6.7); Neutrophils Percent Auto 52.6 % (45.5-73.1); Platelet Count Result 335 k/mm3 (150-375); Red Blood Count 5.59 M/mm3 (4.2-5.4); Red Cell Distribution Width 13.6 % (11.5-14.5); White Blood Count 8.4 K/mm3 (4.5-10.0)
[2021-10-05 06:34] LABS: Magnesium 2.1 mg/dL (1.6-2.3)
[2021-10-05 08:07] LABS: Glucose Point of Care 301 mg/dl (65-105)
[2021-10-05] MEDS: CHOLECALCIFEROL 1,000 UNITS TABLET 5000 UNITS PO (08:10)
[2021-10-05] MEDS: CALCIUM CARBONATE (OSCAL) 500 MG TABLET 1000 MG PO (08:10)
[2021-10-05] MEDS: SPIRONOLACTONE 25 MG TABLET PO (08:10)
[2021-10-05] MEDS: carvediloL 6.25 MG TABLET PO (08:11)
[2021-10-05] MEDS: POTASSIUM CHLORIDE 20 MEQ TABLET.ER PO (08:11)
[2021-10-05] MEDS: ASPIRIN 81 MG CHEWABLE TABLET PO (08:11)
[2021-10-05] MEDS: ENOXAPARIN 40 MG/0.4 ML SYRINGE SUB-Q (08:12)
[2021-10-05] MEDS: FUROSEMIDE INJ 40 MG/4 ML VIAL IV PUSH (08:12)
[2021-10-05] MEDS: guaiFENesin 12 HR 600 MG TABCR PO (08:12)
[2021-10-05] MEDS: SACUBITRIL/VALSARTAN 24-26 MG TABLET 1 TAB PO (08:12)
[2021-10-05] MEDS: INSULIN GLARGINE (*BKC) 100 UNITS/ML 20 UNITS SUB-Q (08:19)
[2021-10-05] MEDS: INSULIN ASPART (*BKC) 100 UNITS/ML SUB-Q ×4 (08:22→12:12)
[2021-10-05 08:31] LABS: Anion Gap 10 mmol/L (8-16); Blood Urea Nitrogen 19 mg/dL (7-17); Calcium 8.4 mg/dL (8.4-10.2); Carbon Dioxide 25 mmol/L (22-30); Chloride 101 mmol/L (98-107); Estimated CRCL calculation 90 ml/min; Estimated Glomerular Filt Rate > 60; Glucose 223 mg/dL (65-110); Potassium 3.8 mmol/L (3.4-5.0); Sodium 136 mmol/L (137-145)
--- NOTE | 2021-10-05 10:16 | PM.PNCARD ---
Progress Note: A&P Assessment and Plan (1) Acute combined systolic and diastolic congestive heart failure: Code(s): I50.41 - Acute combined systolic (congestive) and diastolic (congestive) heart failure Status: Acute Assessment and Plan: Patient presents with new CHF and has been found have a cardiomyopathy. Improving since admission. Etiology is unclear, probably idiopathic. Possibly viral; could be secondary to COVID but I have not seen a COVID-related myocarditis present this late. She has type 1 diabetes so we will of course need to rule out CAD but that seems unlikely. She does have a small ASD or large PFO but that is not likely the cause. Started Entresto, carvedilol, spironolactone Daily BMP Unable to use Farxiga or Jardiance because patient has type 1 diabetes Eventual ischemia evaluation, probably with a Lexiscan, can be done as an outpatient Apical sparing noted on her global longitudinal strain which is seen with amyloid. Pt does not fit the usual clinical picture of amyloid, but will evaluate. SPEP and USEP, serum light chains pending. Will need an MRI to rule out amyloid (may be helpful in evaluating for myocarditis as well) at a later date as well as a pyrophosphate scan. Counseled pt re: CM, tx, etc. Continue carvedilol to 6.25 mg p.o. b.i.d.. Will change her furosemide and 40 mg p.o. daily. Life Vest pending Okay for discharge from my perspective. (2) Nonischemic cardiomyopathy: Code(s): I42.8 - Other cardiomyopathies Status: Acute Assessment and Plan: EF 15-20%. (3) At risk for sudden cardiac : Code(s): Z91.89 - Other specified personal risk factors, not elsewhere classified Status: Acute Assessment and Plan: EF < 35%, at risk for sudden cardiac . Counseled patient Discussed possible LifeVest, possible eventual need for ICD and provided patient some literature regarding LifeVest Patient will let us know tomorrow if she would like it ordered. (4) Hypokalemia: Code(s): E87.6 - Hypokalemia Status: Acute Assessment and Plan: Continue to supplement with 20 mEq p.o. daily (5) COPD exacerbation: Code(s): J44.1 - Chronic obstructive pulmonary disease with (acute) exacerbation Status: Acute Assessment and Plan: Some of this may be a manifestation of CHF but the patient does have a history of smoking (6) Tobacco use disorder, continuous: Code(s): F17.209 - Nicotine dependence, unspecified, with unspecified nicotine-induced disorders Status: Acute Assessment and Plan: Tobacco cessation encouraged (7) Transaminitis: Code(s): R74.01 - Elevation of levels of liver transaminase levels Status: Acute Assessment and Plan: Probably hepatic congestion secondary to CHF (8) History of COVID-19: Code(s): Z86.16 - Personal history of COVID-19 Status: Acute Assessment and Plan: Had COVID July 2020. (9) Type 1 diabetes mellitus with hyperglycemia: Code(s): E10.65 - Type 1 diabetes mellitus with hyperglycemia Status: Acute Assessment and Plan: A1c was 11.9, so it does not appear well controlled. Treatment Per hospitalists Subjective Date/time seen: 10/05/21 10:16 Interval history: Follow-up for new onset of CHF and idiopathic cardiomyopathy. Ejection fraction 15-20%. Date of service 10/03/2021: Feels better, walking in halls with no shortness of breath or lightheadedness. Still orthopneic. Blood pressures been stable with initiation of new medications. I's and O's yesterday: 1800 in, 4000 out. Potassium is low today. Date of service 10/04/2021: Still feels better. No chest pain. No shortness of breath. Still wheezy Date of service 10/05/2021: Feels good wants to go home. No chest pain, short
[2021-10-05 11:46] LABS: Glucose Point of Care 336 mg/dl (65-105)
[2021-10-05] MEDS: cefTRIAXone 2 GM in SODIUM CHLORIDE 0.9% IV 100 ML 200 ML IVPB (12:35)
--- NOTE | 2021-10-05 14:11 | PM.DS ---
DS: Admitting Diagnosis Discharge Date 10/05/2021 Admitting Diagnosis shortness of breath DS: Discharge Diagnosis Discharge Diagnosis (1) Acute respiratory failure with hypoxia: Code(s): J96.01 - Acute respiratory failure with hypoxia Status: Acute Assessment and Plan: Most likely related to pulmonary edema secondary to CHF exacerbation with superimposed pneumonia Continue empiric IV antibiotics pending culture Treated with IV Lasix plan to switch to oral Lasix today versus in a.m. as per Cardiology (2) Tobacco use disorder, continuous: Code(s): F17.209 - Nicotine dependence, unspecified, with unspecified nicotine-induced disorders Status: Acute Assessment and Plan: Counseling (3) Congestive heart failure: Qualifiers: Heart failure chronicity: acute Heart failure type: unspecified Qualified Code(s): I50.9 - Heart failure, unspecified Code(s): I50.9 - Heart failure, unspecified Status: Acute Assessment and Plan: Cardiology consult Echo Lasix management per Cardiology Daily weight (4) Leukocytosis: Qualifiers: Leukocytosis type: unspecified Qualified Code(s): D72.829 - Elevated white blood cell count, unspecified Code(s): D72.829 - Elevated white blood cell count, unspecified Status: Acute Assessment and Plan: Probable pneumonia continue IV antibiotic (5) Transaminitis: Code(s): R74.01 - Elevation of levels of liver transaminase levels Status: Acute Assessment and Plan: Most likely related to hepatic congestion secondary to CHF monitor (6) Type 1 diabetes mellitus with hyperglycemia: Code(s): E10.65 - Type 1 diabetes mellitus with hyperglycemia Status: Acute Assessment and Plan: Uncontrolled continue Lantus continue insulin sliding scale Patient had episodes of hypoglycemia yesterday Blood sugar uncontrolled Decrease Lantus to 25 units daily and decreased NovoLog to 5 units t.i.d. (7) COPD exacerbation: Code(s): J44.1 - Chronic obstructive pulmonary disease with (acute) exacerbation Status: Acute Assessment and Plan: Present on admission added nebulizer treatment improved (8) Hypokalemia: Code(s): E87.6 - Hypokalemia Status: Acute Assessment and Plan: Replaced Expect discharge in the next 24-48 hours once hyperglycemia improved DS: Summary Hospital Course Reason for hospitalization: Chief Complaint: Shortness of breath and cough for 1 month Narrative: 50-year-old female with past medical history type 1 diabetes mellitus who presented to the ER from home due to cough and shortness of breath for 1 month. The patient reports and she has had intermittent wheezing that is worse with lying supine and paroxysmal nocturnal dyspnea for 1 month. She reports that her cough is productive of thick clear sputum. She denies any weight gain in fact states that she has been having a mild weight loss over the last few months. She reports that her clothes feel looser. She states that she still has a good appetite and attributes her weight loss to living and active lifestyle. She does report intermittent dyspnea on exertion for the last month. She denies having any chest pain. She is unsure if she has been having any palpitations. She has noticed right calf pain for the last several days with some increased swelling of the right lower extremity. She has had intermittent bilateral ankle swelling on and off for years. She has been having some chills today. She reports that when she lays down to sleep she has been having episodes of diaphoresis and will wake up panic in have to sit on the edge of the bed to catch her breath. She has not been having any fevers. She has been having some mild nausea but denies any vomiting. She denies any recent ill contacts. She lives at home with her son in 2 grand children. She does smoke 1 pack of cigarettes per day. She has
[2021-10-06 20:04] LABS: Albumin 2.8 g/dL (3.8-4.8); Alpha 1 Globulin 0.3 g/dL (0.2-0.3); Alpha 2 Globulin 0.8 g/dL (0.5-0.9); Beta 1 Globulin 0.4 g/dL (0.4-0.6); Gamma Globulin 0.6 g/dL (0.8-1.7); Protein, Total 5.2 g/dL (6.1-8.1)
[2021-10-07 05:28] LABS: Creatinine, Random Urine 14 mg/dL (20-275); Total Protein/Creatinine Ratio 500 mg/g creat (21-161)
[2021-10-08 06:09] LABS: Kappa\\Lambda Light Chains 1.95 (0.26-1.65); Lambda Light Chain 14.9 mg/L (5.7-26.3)
== END 2021-10-05 15:16 | disposition home or self-care (01) | DRG 194 ==
LOC: ANHED 10-01 00:36 → ANHIMU 10-01 02:49 → ANH3MED 10-05 14:11 → ANHIMU 10-06 15:49
PROVIDERS: Emergency Medicine; Family Medicine; Internal Medicine Cardiovascular Disease; Admitting Provider Internal Medicine; Emergency Provider General Practice; Visit Provider Internal Medicine
DX: I50.41 Acute combined systolic (congestive) and diastolic (congestive) heart failure (principal); J96.01 Acute respiratory failure with hypoxia; I42.8 Other cardiomyopathies; E10.21 Type 1 diabetes mellitus with diabetic nephropathy; E10.65 Type 1 diabetes mellitus with hyperglycemia; E10.649 Type 1 diabetes mellitus with hypoglycemia without coma; J18.9 Pneumonia, unspecified organism; J44.0 Chronic obstructive pulmonary disease with (acute) lower respiratory infection; J44.1 Chronic obstructive pulmonary disease with (acute) exacerbation; Z20.822 Contact with and (suspected) exposure to COVID-19; Z86.16 Personal history of COVID-19; R74.01 Elevation of levels of liver transaminase levels; F17.210 Nicotine dependence, cigarettes, uncomplicated; E78.5 Hyperlipidemia, unspecified; M79.661 Pain in right lower leg; E87.6 Hypokalemia; Z79.4 Long term (current) use of insulin; Z79.899 Other long term (current) drug therapy; Z91.89 Other specified personal risk factors, not elsewhere classified
CPT/HCPCS: 36415; 36600; 71045; 71275; 80048; 80053; 80061; 81001; 82010; 82375; 82570; 82805; 82948; 83036; 83050; 83605; 83735; 83880; 83883; 84155; 84156; 84165; 84166; 84443; 84484; 85025; 85055; 85380; 85610; 85730; 87040; 87804; 93005; 93306; 93971; 94640; 96365; 96374; 96375; 99285; A9270; C9803; G0378; J0456; J0696; J1650; J1815; J1940; J2405; J2930; Q9967; U0003; U0005

== ENCOUNTER 2021-11-24 16:52 | Outpatient (CLI) | payer OTHER, SELFPAY ==
[2021-11-24 17:22] LABS: Anion Gap 5 mmol/L (8-16); Blood Urea Nitrogen 17 mg/dL (7-17); Calcium 8.7 mg/dL (8.4-10.2); Carbon Dioxide 31 mmol/L (22-30); Chloride 100 mmol/L (98-107); Estimated Glomerular Filt Rate > 60; Glucose 244 mg/dL (65-110); Sodium 136 mmol/L (137-145)
== END 2021-11-24 16:53 | disposition home or self-care (01) ==
LOC: ANHLAB 16:54
PROVIDERS: Visit Provider Internal Medicine Cardiovascular Disease
DX: I50.42 Chronic combined systolic (congestive) and diastolic (congestive) heart failure (principal); I42.0 Dilated cardiomyopathy
CPT/HCPCS: 36415; 80048

== ENCOUNTER → 2021-11-29 00:38 | Outpatient (CLI) | payer OTHER, SELFPAY ==
[2021-11-29 11:30] LABS: SARS-CoV-2 RNA PCR Negative
== END ==
PROVIDERS: Visit Provider Internal Medicine Cardiovascular Disease
DX: Z01.812 Encounter for preprocedural laboratory examination (principal); Z20.822 Contact with and (suspected) exposure to COVID-19
CPT/HCPCS: C9803; U0003; U0005

== ENCOUNTER 2021-12-01 16:46 | Outpatient (CLI) | payer OTHER, SELFPAY ==
[2021-12-01 17:18] LABS: Hematocrit 43.2 % (37.0-47.0); Hemoglobin 14.5 g/dL (12.0-15.0); Mean Corpuscular HGB Conc 33.6 g/dl (32-36); Mean Corpuscular Hemoglobin 29.6 pg (26-34); Mean Corpuscular Volume 88.2 fl (80-100); Mean Platelet Volume 11.1 fl (7.4-10.4); Platelet Count Result 309 k/mm3 (150-375); Red Cell Distribution Width 13.5 % (11.5-14.5); White Blood Count 7.6 K/mm3 (4.5-10.0)
[2021-12-01 17:22] LABS: Add Urine Microscopic? YES; Appearance Urine Clear (Clear); Bilirubin Urine Negative (Negative); Blood Urine Negative (Negative); Color Urine Straw (Yellow); Glucose Urine UA 3+ mg/dL (Negative); Ketones Urine Negative (Negative); Leukocyte Esterase Ur Negative LEU/UL (NEGATIVE); Mucus Urine Rare /lpf; Nitrate Urine Negative (Negative); Protein Urine Negative (Negative); Specific Grav Ur 1.006 (1.001-1.035); Squamous Epithelial Cell Urine Rare /hpf (Few); Urobilinogen Urine Negative mg/dL (<2.0); WBC Urine 0-3 /hpf (0-3)
[2021-12-01 17:28] LABS: Alanine Aminotransferase 25 U/L (4-35); Albumin Level 4.1 g/dL (3.5-5.1); Alkaline Phosphatase 102 U/L (38-126); Anion Gap 8 mmol/L (8-16); Aspartate Amino Transferase 31 U/L (14-36); Bilirubin,Total 0.8 mg/dL (0.2-1.3); Blood Urea Nitrogen 14 mg/dL (7-17); Calcium 8.7 mg/dL (8.4-10.2); Carbon Dioxide 24 mmol/L (22-30); Chloride 102 mmol/L (98-107); Cholesterol 216 mg/dL (0-200); Estimated Glomerular Filt Rate > 60; Glucose 290 mg/dL (65-110); HDL Direct 38 mg/dL; Sodium 134 mmol/L (137-145); Triglycerides 132 mg/dL (<150)
[2021-12-01 17:32] LABS: Rheumatoid Factor < 8.6 IU/ML (<12)
[2021-12-01 17:36] LABS: Hemoglobin A1C 10.9 % (<5.7)
[2021-12-01 17:39] LABS: LDL Cholesterol Direct 142 mg/dL
[2021-12-01 17:47] LABS: Erythrocyte Sedimentation Rate 5 mm/hr (0-20)
[2021-12-01 17:59] LABS: Thyroid Stimulating Hormone 0.441 uIU/mL (0.465-4.680)
[2021-12-01 18:04] LABS: Free T4 Free Thyroxine 1.54 ng/mL (0.78-2.19)
[2021-12-01 23:17] LABS: Creatinine Urine 26.4 mg/dL
[2021-12-01 23:20] LABS: MALB Creatinine Ratio 191.7 mg/g (0-30); Microalbumin Urine Random 50.6 mg/L (0-16.7)
== END 2021-12-01 16:47 | disposition home or self-care (01) ==
LOC: ANHLAB 16:50
PROVIDERS: Visit Provider Emergency Medicine
DX: E11.9 Type 2 diabetes mellitus without complications (principal); I42.9 Cardiomyopathy, unspecified
CPT/HCPCS: 36415; 80053; 80061; 81001; 82043; 83036; 84439; 84443; 85027; 85652; 86038; 86430

== ENCOUNTER 2021-12-02 03:20 | Day surgery (SDC) | payer OTHER, SELFPAY ==
[2021-12-02] VITALS (19 sets, daily range): BP systolic 102–140; BP diastolic 58–84; PULSE 53–81; RESP 12–21; TEMP 36.2; O2SAT 91–100; BMI 21.7
[2021-12-02 07:39] LABS: Basophils Absolute Auto 0.1 K/mm3 (0.0-0.1); Basophils Percent Auto 1.2 % (0.2-1.2); Eosinophils Absolute Auto 0.2 K/mm3 (0-0.3); Hematocrit 45.5 % (37.0-47.0); Hemoglobin 15.4 g/dL (12.0-15.0); Immature Granulocyte Absolute 0.01 K/mm3 (0.00-0.031); Immature Granulocyte Percent A 0.2 % (0-0.5); Lymphocytes Absolute Auto 2.64 K/mm3 (0.9-3.2); Lymphocytes Percent Auto 39.8 % (18.3-44.2); Mean Corpuscular HGB Conc 33.8 g/dl (32-36); Mean Corpuscular Hemoglobin 29.9 pg (26-34); Mean Corpuscular Volume 88.3 fl (80-100); Mean Platelet Volume 10.7 fl (7.4-10.4); Monocytes Absolute Auto 0.5 K/mm3 (0.1-0.6); Monocytes Percent Auto 7.8 % (2.6-8.5); Neutrophils Absolute Auto 3.2 K/mm3 (1.3-6.7); Platelet Count Result 315 k/mm3 (150-375); Red Blood Count 5.15 M/mm3 (4.2-5.4); Red Cell Distribution Width 13.7 % (11.5-14.5); White Blood Count 6.6 K/mm3 (4.5-10.0)
[2021-12-02 07:47] LABS: Anion Gap 7 mmol/L (8-16); Blood Urea Nitrogen 17 mg/dL (7-17); Calcium 8.9 mg/dL (8.4-10.2); Carbon Dioxide 24 mmol/L (22-30); Chloride 108 mmol/L (98-107); Estimated Glomerular Filt Rate > 60; Glucose 126 mg/dL (65-110); Potassium 4.1 mmol/L (3.4-5.0); Sodium 139 mmol/L (137-145)
[2021-12-02 07:49] LABS: Prothrombin Time 12.8 Seconds (11.1-14.7)
[2021-12-02 07:52] LABS: Glucose Point of Care 111 mg/dl (65-105)
--- NOTE | 2021-12-02 08:44 | WPDHPUPDATE1 ---
History and Physical Update Update Date/Time: 12/02/21 08:44 Patient with a recent onset of cardiomyopathy and CHF here for cardiac catheterization.History and Physical has been reviewed, including an updated exam of the patient. There are NO changes in the patient's condition. Risks, benefits, and alternatives have been discussed and questions answered. Patient agrees to proceed with procedure. Reviewed possible risks and complications with patient including breathing problems, bleeding problems, blood vessel problems, unanticipated surgery, allergic reactions, kidney problems, CVA, MT, and among others. Discussed possibility of stenting and possible need for DAPT. Discussed the possibility that if DAPT is interrupted stent thrombosis can occur resulting in heart attack and . Patient understands risks and desires to proceed.
--- NOTE | 2021-12-02 08:45 | WPDMODSED ---
Moderate Sedation Note-Pt Data Patient Data Diagnosis: cardiomyopathy, CHF, new onset Present Complaint: 51-year-old female diagnosed with new onset of heart failure and cardiomyopathy in September 2021, type 1 diabetes, tobacco use. For for cardiac catheterization for further evaluation of cardiomyopathy. Procedure to be performed/Plan: Conscious sedation Left heart catheterization Allergies Allergy/AdvReac Type Severity Reaction Status Date / Time latex Allergy Hives Verified 10/01/21 03:34 Home Medications Medication Instructions Recorded Confirmed Type Apidra U-100 Insulin 1 sliding scale dose SUBCUT 10/01/21 12/02/21 History USEASDIRECTD Lantus U-100 Insulin 30 unit SUBCUT QAM 10/01/21 12/02/21 History calcium carbonate 1,200 mg PO DAILY 10/01/21 12/02/21 History cholecalciferol (vitamin D3) 125 mcg PO DAILY 10/01/21 12/02/21 History [Vitamin D3] aspirin [Children's Aspirin] 81 mg PO DAILY@0800 #30 tablet 10/05/21 12/02/21 Rx carvedilol [Coreg] 6.25 mg PO Q12HR #60 tablet 10/05/21 12/02/21 Rx spironolactone 25 mg PO QAM #30 tablet 10/05/21 12/02/21 Rx furosemide 20 mg PO DAILY 12/02/21 12/02/21 History sacubitril-valsartan [Entresto] 1 tablet PO BID 12/02/21 12/02/21 History Current Medications: Active Medications Sodium Chloride (Normal Saline Iv) 500 mls @ 100 mls/hr IV CONT .Q5H JOSHUA Sedation/Anesthesia: No previous sedation/anesthesia problems (including family history). [facility] Past Medical History Medical History Diabetes mellitus Diabetic nephropathy associated with type 1 diabetes mellitus History of COVID-19 Hyperlipidemia Nonischemic cardiomyopathy Tobacco use disorder, continuous Vitamin D deficiency Surgical History Surgical History History of total abdominal hysterectomy and bilateral salpingo-oophorectomy Due to endometriosis and uterine fibroids Family History Family History Mother Osteoarthritis In good health Father In good health Social History Social History Social History: The patient lives at home with her son, grandson and granddaughter. She has 2 other adult children. 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 She has smoked 1 pack of cigarettes per day since the age of 15. She reports occasional alcohol use in moderation. She denies listed substance use. Smoking packs per day: 1 Smoking cigarettes per day: 20.0 Years smoked: 35 Smoking pack-years: 35.00 Smoking status: Current every day smoker Tobacco type: cigarettes Alcohol intake: never Substance use: never Spiritual care concerns: No Mod Sed Physical Exam Physical Exam Pre Procedural Exam: Normal: Appearance ( wearing life vest), Eyes, Ears, Nose, Neck, Throat, Airway, Lungs, Heart Size, Heart Rate, Heart Rhythm, Neuro Exam, Abdomen, Extremities and Skin Hours since solid foods: 12 Hours since liquid intake: 12 Mallampati Classification: class II Internal Medicine - PN: Obj Da Vital Signs Vital Signs: Vital Signs - 24 hr 12/02/21 07:30 Temperature 97.2 F L Pulse Rate 78 Respiratory Rate 20 Blood Pressure 124/84 Pulse Oximetry 100 Meds/Results Medications: Active Medications Generic Name Dose Route Start Last Admin Trade Name Freq PRN Reason Stop Dose Admin Sodium Chloride 500 mls @ 100 mls/hr 12/02/21 07:00 Normal Saline Iv IV CONT .Q5H JOSHUA Labs CBC & Chem 7: 12/02/21 07:25 12/02/21 07:25 Labs: Laboratory Results - last 24 hr 12/02/21 12/02/21 12/02/21 07:25 07:25 07:25 WBC 6.6 RBC 5.15 Hgb 15.4 H Hct 45.5 MCV 88.3 MCH 29.9 MCHC 33.8 RDW 13.7 Plt Count 315 MPV 10.7 H Immature Gran % (Auto) 0.
--- NOTE | 2021-12-02 09:33 | WPDCARDPROC ---
Cardiac Cath Procedure Note Date of procedure:: 12/02/21 Performing physician:: Charleen Thayer MD Indication:: Evaluation of cardiomyopathy Brief clinical history:: 51-year-old female with new onset of CHF and cardiomyopathy in September 2021 EF friend's 15-20%. History of type 1 diabetes, cigarette smoking, and COVID in July 2020. Echo in September 2021 shows severe global hypokinesis with EF 15-20%, LV enlargement, diastolic dysfunction, moderate RV enlargement, RVSP 57 mmHg, possible small ASD versus PFO with [id number] shunting, strain -9% with apical sparing. Procedure Procedure performed:: Procedure: 1. Conscious sedation 2. Left heart catheterization 3. Selective Coronary angiography 4. Left ventriculography 5. Angiography of the right common femoral artery Sedation/Medication given:: Conscious sedation: The patient has no known prior history of adverse affects of conscious sedation. Oropharynx was clear. The patient is deemed a good candidate for conscious sedation. Conscious sedation began at: 8:52 a.m. Conscious sedation ended at: 9:34 a.m. Total conscious sedation time: 42 minutes Medications: Versed 1 mg, fentanyl 50 mcg IV push The patient had continuous hemodynamic monitoring, and was also continuously monitored by:Ruddy Shaw RN The patient tolerated conscious sedation well. Access site:: right femoral artery Estimated blood loss:: 10 cc Procedure note:: Catheters: 5 Vincentian arterial sheath, 5 Vincentian 4 cm right and left Shy catheters, 5 Vincentian pigtail catheter Detailed procedure: After informed consent the patient brought to the laborer pipelines and the right femoral area was prepped and draped in the usual fashion. After conscious sedation and local anesthesia the right femoral artery was punctured and cannulated with the arterial sheath. Selective Coronary angiography was performed with the coronary catheters in multiple projections. These were withdrawn. The pigtail catheter was advanced into the central circulation and left ventricle for pressure measurements and left ventriculography which was performed in the PERLA projection. This was withdrawn. Dr. Bernardo was consulted to help assess the severity of the left main lesion with IFR. This is detailed in a separate report. Angiography of the right common femoral artery was performed. The sheath was not suitable position for a vascular closure device. Later the arterial sheath was removed and hemostasis was obtained using local pressure. The patient tolerated the procedure well with no complications. Estimated blood loss was negligible. Findings:: Pressures: Left ventricular pressure was 105 /20 and aortic pressure was 110/70 mmHg Left coronary artery: The proximal vessels were calcified. The vessels were small caliber, with diffuse disease present, particularly diffuse in the smaller vessels. The left main had a stenosis which appeared in some views to be 60-70% stenosed, other views much less. There was 40% stenosis of the mid Left anterior descending and 40-50% stenosis of the mid to distal Left anterior descending and 50% long stenosis of the distal Left anterior descending which wrapped around the apex. The diagonals were diffusely diseased and a very small caliber. The circumflex had a 40% stenosis proximally. The 1st OM had a 70-80% stenosis but was somewhat of a narrow caliber vessel. The distal vessels were very small and diffusely diseased. The may be some collaterals coming from the distal Left anterior descending to the distal branches of the 1st obtuse marginal. The 2nd obtuse marginal was also a a narrow vessel with diffuse disease particularly distally, and a long 80% stenosis of the mid segment. The remainder of the circumflex was diminutive. Right coronary artery the dominant right coronary artery was moderately diffusely diseased. There is a 60% stenosis of the proximal segment, and 60-70% stenosis in mid segment. There a couple are
--- NOTE | 2021-12-02 10:55 | P.OP_ITS ---
Procedure Note - Detailed Date of Procedure 12/02/21 Pre-op Diagnosis Cardiomyopathy Chest Pain Date of service 12/02/2021 Post-op Diagnosis Same Procedure Performed IFR of ostial left main Surgeon Joyce Bernardo MD Procedure: IFR of the left main Description procedure: Dr. Charleen elias has just finished doing cardiac catheterization and asked me to come and do IFR of the mid RCA. The 5 Marshallese right groin sheath was exchanged to 6 Marshallese sheath. CLS guide catheter was used advance to the aortic root. CLS 3.5. Then after that pressure wire was zeroed outside the body and then advanced to the aortic root with normalization pressures done. Pressure wire was advanced just to distal to the ostial of the left main and measurements of IFR was done. This was done under and using Angiomax. Angiogram shows no complications. IFR: Was 0.95 Conclusion: No significant left main disease. Description of Procedure Dr. Charleen elias has just finished doing cardiac catheterization and asked me to come and do IFR of the mid RCA. The 5 Marshallese right groin sheath was exchanged to 6 Marshallese sheath. CLS guide catheter was used advance to the aortic root. CLS 3.5. Then after that pressure wire was zeroed outside the body and then advanced to the aortic root with normalization pressures done. Pressure wire was advanced just to distal to the ostial of the left main and measurements of IFR was done. This was done under and using Angiomax.
--- NOTE | 2021-12-02 15:00 | SUR.PHASEII ---
Discharge instructions read to patient and mother. Pt and mother states understanding.
== END 2021-12-02 16:30 | disposition home or self-care (01) ==
PROVIDERS: Internal Medicine Cardiovascular Disease; PCP Emergency Medicine; Visit Provider Internal Medicine Cardiovascular Disease
PROC: 4A023N7 Measurement of Cardiac Sampling and Pressure, Left Heart, Percutaneous Approach (ICD-10-PCS; CPT 93452; principal; 2021-12-02 08:30)
PROC: 4A033BC Measurement of Arterial Pressure, Coronary, Percutaneous Approach (ICD-10-PCS; CPT 93571; 2021-12-02 08:30)
DX: I25.10 Atherosclerotic heart disease of native coronary artery without angina pectoris (principal); I42.0 Dilated cardiomyopathy; I50.42 Chronic combined systolic (congestive) and diastolic (congestive) heart failure; Q21.1 Atrial septal defect; E10.21 Type 1 diabetes mellitus with diabetic nephropathy; E55.9 Vitamin D deficiency, unspecified; E78.5 Hyperlipidemia, unspecified; F17.210 Nicotine dependence, cigarettes, uncomplicated; Z79.4 Long term (current) use of insulin; Z79.82 Long term (current) use of aspirin
CPT/HCPCS: 36415; 80048; 82948; 85025; 85610; 93458; 93571; A9270; C1769; C1887; C1894; J0583; J1644; J2250; J3010; J7040

== ENCOUNTER 2021-12-20 14:38 | Outpatient (CLI) | payer OTHER, SELFPAY ==
--- NOTE | ~2021-12-20 | XR_ITS ---
EXAMINATION: XR chest 2V DATE: 12/20/2021 15:04 INDICATION: Pneumonia. Congestive heart failure. Smoking. TECHNIQUE: Frontal and lateral views of the chest were obtained. COMPARISON: Chest single view 09/30/2021, chest CT 09/30/2021 FINDINGS: There is no pneumonia, pleural effusion, or pneumothorax. Cardiomegaly is noted. IMPRESSION: 1. Cardiomegaly. Reviewed, dictated and finalized at location A. IMPRESSION: 1. Cardiomegaly.
== END 2021-12-20 14:39 | disposition home or self-care (01) ==
LOC: ANHIMG 14:47
PROVIDERS: PCP Emergency Medicine; Visit Provider Emergency Medicine
DX: J18.9 Pneumonia, unspecified organism (principal); I50.9 Heart failure, unspecified; I51.7 Cardiomegaly
CPT/HCPCS: 71046

== ENCOUNTER → 2022-01-10 02:21 | Outpatient (CLI) | payer OTHER, SELFPAY ==
[2022-01-10 12:17] LABS: SARS-CoV-2 RNA PCR Negative
== END ==
PROVIDERS: PCP Emergency Medicine; Visit Provider Internal Medicine Cardiovascular Disease
DX: Z01.812 Encounter for preprocedural laboratory examination (principal); Z20.822 Contact with and (suspected) exposure to COVID-19
CPT/HCPCS: C9803; U0003; U0005

== ENCOUNTER 2022-01-10 12:46 | Outpatient (CLI) | payer OTHER, SELFPAY ==
--- NOTE | ~2022-01-10 | US_ITS ---
EXAMINATION: US thyroid DATE: 01/10/2022 13:16 INDICATION: Hyperthyroidism. TECHNIQUE: Multiple ultrasound images of the thyroid were obtained. COMPARISON: Chest CT 09/30/2021 FINDINGS: The right thyroid lobe measures 6.2 x 2.7 x 1.5 cm. The left thyroid lobe measures 5.3 x 2.0 x 1.2 c m. In the right thyroid lobe, there is a 5 mm almost completely solid, hypoechoic, guopm-awur-fmvf n odule with smooth margin without echogenic foci (TI-RADS TR4). In the left thyroid lobe, there is a 5 mm mixed cystic and solid, hypoechoic, pqevw-mfar-lrqx nodule with smooth margin without echogenic f oci (TR3). IMPRESSION: 1. Small thyroid nodules, likely not clinically significant. No follow-up is needed. Reviewed, dictated and finalized at location A. IMPRESSION: 1. Small thyroid nodules, likely not clinically significant. No follow-up is ne eded.
== END 2022-01-10 12:47 | disposition home or self-care (01) ==
LOC: ANHIMG 12:52
PROVIDERS: PCP Emergency Medicine; Visit Provider Emergency Medicine
DX: I10 Essential (primary) hypertension (principal); E03.9 Hypothyroidism, unspecified
CPT/HCPCS: 76536; C9803; U0003; U0005

== ENCOUNTER 2022-01-13 02:11 | Day surgery (SDC) | payer OTHER, SELFPAY ==
[2022-01-13] VITALS (14 sets, daily range): BP systolic 91–143; BP diastolic 56–99; PULSE 60–82; RESP 12–22; TEMP 36.7–36.9; O2SAT 97–100; BMI 22.6
--- NOTE | ~2022-01-13 | XR_ITS ---
EXAMINATION: XR chest 1V portable INDICATION: ICD insertion TECHNIQUE: Portable AP chest at 1350 hours COMPARISON: 12/20/2021 FINDINGS: There has been interval insertion of a single lead pacemaker in the left chest wall. No pne umothorax is identified. The lungs are free of acute opacities. There is no pleural effusion. Cardiom egaly is noted. IMPRESSION: 1. No acute cardiopulmonary abnormality. Pacemaker insertion. Reviewed, dictated and finalized at location F.
--- NOTE | 2022-01-13 09:30 | ECG_ITS ---
Measurements Intervals [place] Rate: 77 P: 58 MD: 153 QRS: -3 QRSD: 85 T: 211 QT: 392 QTc: 444 Interpretive Statements SINUS RHYTHM POSSIBLE LEFT ATRIAL ENLARGEMENT [-0.1mV P WAVE IN V1/V2] NONSPECIFIC ST AND T-WAVE CHANGES COMPARED TO ECG 09/30/2021 20:32:21 THE PATIENT IS NO LONGER TACHYCARDIC Electronically Signed On 01-13-2022 20:52:18 CDT by Charleen Thayer M.D.
[2022-01-13 10:00] LABS: Basophils Absolute Auto 0.1 K/mm3 (0.0-0.1); Basophils Percent Auto 1.1 % (0.2-1.2); Eosinophils Absolute Auto 0.3 K/mm3 (0-0.3); Eosinophils Percent Auto 3.6 % (0-4.4); Hematocrit 47.1 % (37.0-47.0); Hemoglobin 15.6 g/dL (12.0-15.0); Immature Granulocyte Absolute 0.03 K/mm3 (0.00-0.031); Immature Granulocyte Percent A 0.4 % (0-0.5); Lymphocytes Percent Auto 31.7 % (18.3-44.2); Mean Corpuscular HGB Conc 33.1 g/dl (32-36); Mean Corpuscular Hemoglobin 29.7 pg (26-34); Mean Corpuscular Volume 89.5 fl (80-100); Mean Platelet Volume 10.2 fl (7.4-10.4); Monocytes Absolute Auto 0.6 K/mm3 (0.1-0.6); Monocytes Percent Auto 7.7 % (2.6-8.5); Neutrophils Absolute Auto 4.2 K/mm3 (1.3-6.7); Neutrophils Percent Auto 55.5 % (45.5-73.1); Platelet Count Result 338 k/mm3 (150-375); Red Blood Count 5.26 M/mm3 (4.2-5.4); Red Cell Distribution Width 13.3 % (11.5-14.5); White Blood Count 7.6 K/mm3 (4.5-10.0)
--- NOTE | 2022-01-13 10:08 | SUR.PREOP ---
Paged Dr. Thayer regarding patient's pre ICD 12 lead EKG reading acute VT. Asked for a call back. Patient is having no chest pain or symptoms.
[2022-01-13 10:09] LABS: Anion Gap 4 mmol/L (8-16); Blood Urea Nitrogen 17 mg/dL (7-17); Carbon Dioxide 33 mmol/L (22-30); Chloride 103 mmol/L (98-107); Estimated CRCL calculation 80 ml/min; Estimated Glomerular Filt Rate > 60; Glucose 116 mg/dL (65-110); Potassium 4.6 mmol/L (3.4-5.0); Sodium 140 mmol/L (137-145)
[2022-01-13 10:12] LABS: INR 1.1; Prothrombin Time 13.4 Seconds (11.1-14.7)
--- NOTE | 2022-01-13 10:15 | SUR.PREOP ---
Dr. Thayer called back regarding 12 lead EKG. She feels she is fine and no acute NH present. No new orders.
--- NOTE | 2022-01-13 11:01 | SUR.PREOP ---
Dr. Thayer at bedside talking with patient and mother preprocedure.
--- NOTE | 2022-01-13 11:02 | SUR.PREOP ---
1045 [employer] representatives Yahir and Joseph arrived and talked with patient.
--- NOTE | 2022-01-13 11:07 | WPDHPUPDATE1 ---
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 She has diffuse diabetic coronary disease by catheterization in December 2021. MRI did not show any amyloidosis or infiltrative disease. Very EF was initially 15-30%, and remains less than 35% despite optimal medical therapy. She is at risk of sudden cardiac and I recommended implantation of a defibrillator for primary prevention. History and Physical has been reviewed, including an updated exam of the patient. There are NO changes in the patient's condition. Risks, benefits, and alternatives have been discussed and questions answered. Patient agrees to proceed with procedure.
--- NOTE | 2022-01-13 11:09 | WPDMODSED ---
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 She has diffuse diabetic coronary disease by catheterization in December 2021. MRI did not show any amyloidosis or infiltrative disease. Very EF was initially 15-30%, and remains less than 35% despite optimal medical therapy. She is at risk of sudden cardiac and I recommended implantation of a defibrillator for primary prevention. Procedure to be performed/Plan: Conscious sedation Venogram Implantation of a single lead ICD Allergies Allergy/AdvReac Type Severity Reaction Status Date / Time latex Allergy Hives Verified 01/13/22 10:10 Home Medications Medication Instructions Recorded Confirmed Type Apidra U-100 Insulin 1 sliding scale dose SUBCUT 10/01/21 01/13/22 History USEASDIRECTD Lantus U-100 Insulin 30 unit SUBCUT QAM 10/01/21 12/02/21 History calcium carbonate 1,200 mg PO DAILY 10/01/21 01/13/22 History cholecalciferol (vitamin D3) 125 mcg PO DAILY 10/01/21 01/13/22 History [Vitamin D3] aspirin [Children's Aspirin] 81 mg PO DAILY@0800 #30 tablet 10/05/21 01/13/22 Rx spironolactone 25 mg PO QAM #30 tablet 10/05/21 12/02/21 Rx Entresto 1 tablet PO BID 12/02/21 01/13/22 History atorvastatin 40 mg PO HS #90 tablet 12/02/21 01/13/22 Rx carvedilol 12.5 mg PO BID #60 tablet 12/02/21 01/13/22 Rx furosemide 20 mg PO DAILY 12/02/21 01/13/22 History Sedation/Anesthesia: No previous sedation/anesthesia problems (including family history). [facility] Past Medical History Medical History Diabetes mellitus Diabetic nephropathy associated with type 1 diabetes mellitus History of COVID-19 Hyperlipidemia Nonischemic cardiomyopathy Tobacco use disorder, continuous Vitamin D deficiency Surgical History Surgical History History of total abdominal hysterectomy and bilateral salpingo-oophorectomy Due to endometriosis and uterine fibroids Family History Family History Mother Osteoarthritis In good health Father In good health Social History Social History Social History: The patient lives at home with her son, grandson and granddaughter. She has 2 other adult children. 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 She has smoked 1 pack of cigarettes per day since the age of 15. She reports occasional alcohol use in moderation. She denies listed substance use. Smoking packs per day: 1 Smoking cigarettes per day: 20.0 Years smoked: 35 Smoking pack-years: 35.00 Smoking status: Current every day smoker Tobacco type: cigarettes Alcohol intake: never Substance use: never Spiritual care concerns: No Mod Sed Physical Exam Physical Exam Pre Procedural Exam: Normal: Appearance, Eyes, Ears, Nose, Neck, Throat, Airway, Lungs, Heart Size, Heart Rate, Heart Rhythm, Neuro Exam, Abdomen, Extremities and Skin (Skin over the left prepectoral area is free of disease) Hours since solid foods: 12 Hours since liquid intake: 12 Mallampati Classification: class II Internal Medicine - PN: Obj Da Vital Signs Vital Signs: Vital Signs - 24 hr 01/13/22 09:55 Pulse Rate 80 Respiratory Rate 16 Blood Pressure 109/74 Pulse Oximetry 100 Labs CBC & Chem 7: 01/13/22 09:47 01/13/22 09:47 Labs: Laboratory Results - last 24 hr 01/13/22 01/13/22 01/13/22 09:47 09:47 09:47 WBC 7.6 RBC 5.26 Hgb 15.6 H Hct 47.1 H MCV 89.5 MCH 29.7 MCHC 33.1 RDW 13.3 Plt Count 338 MPV 10.2 Immature Gran % (Auto) 0.4 Neut % (Auto) 55.5 Lymph
--- NOTE | 2022-01-13 13:25 | PM.OP ---
Procedure Note - Brief Procedure Note - Brief Date of procedure: 01/13/22 Pre-op diagnosis: low ejection fraction Cardiomyopathy, at risk of sudden cardiac Post-op diagnosis: Same Procedure performed: Conscious sedation Venogram Implantation of a [employer] ICD Description of procedure: Uneventful implantation of a [employer] single lead ICD Anesthesia: local ( with conscious sedation) Surgeon: Charleen Thayer MD Condition: Stable Disposition: Observation
--- NOTE | 2022-01-13 13:27 | W.PM.PROC2 ---
Procedure Note - Detailed Date of Procedure 01/13/22 Pre-op Diagnosis Cardiomyopathy, at risk of sudden cardiac Post-op Diagnosis Same Procedure Performed Conscious sedation Venogram Implantation of a single lead Biotronik ICD Surgeon Charleen Thayer MD Anesthesia Local ( with conscious sedation) Indications Patient with new onset of CHF and idiopathic dilated cardiomyopathy diagnosed in September 2021. She has diffuse diabetic coronary disease by catheterization in December 2021. MRI did not show any amyloidosis or infiltrative disease. Very EF was initially 15-30%, and recent echo shows ejection fraction 25-30% ( MRI EF was 29%). despite greater than 90 days of optimal medical therapy. She has been wearing a Life Vest. She is at risk of sudden cardiac and I recommended implantation of a cardioverter/defibrillator for primary prevention. Description of Procedure SITE: Left prepectoral area MEDICATIONS GIVEN IN BUSINESS ANALYTICS FACULTY MEMBER: Ancef 1 gram IV piggyback CONSCIOUS SEDATION: Assessment: The patient has no history of anesthesia problems. The patient's oropharynx is clear. The patient was deemed to be a good candidate for conscious sedation. The patient had continuous hemodynamic monitoring during the procedure. Start time: 1144 a.m. Completion time: 1:14 p.m. Total conscious sedation time: 88 minutes Medications: Versed 2 mg, fentanyl 100 mcg IV push Trained observer: Vasile Loving RN Outcome: The patient tolerated the procedure well with no complications. PROCEDURE: After informed consent , the patient was brought to the liaison inspection laboratory assistant and the left prepectoral area was prepped and draped in usual fashion . The patient received preop antibiotic with Ancef 1 g IV push and conscious sedation . The left prepectoral area was anesthetized with lidocaine . A venogram was performed showing the course of the left subclavian vein,which was patent, though partly was super clavicular. Next a skin incision was made and carried down to the prepectoral fascia. Hemostasis was obtained using electrocautery . The pocket was formed. The left subclavian vein was easily accessed with the micropuncture technique, and a J-tipped guide wire was passed into the inferior vena cava under fluoroscopic guidance. The needle was withdrawn. the wire was pulled into the pacing pocket. An 8 Bulgarian safety sheath was passed over the wire, the wire withdrawn, and the right ventricular lead was passed into the inferior vena cava under fluoroscopic guidance . The lead was then prolapsed through the tricuspid valve and advanced into the right ventricular apex. When suitable sensing and pacing thresholds were obtained, it was screwed into place. No extra cardiac stimulation was obtained using 10 volts. The sheath was withdrawn. The lead was secured to the prepectoral fascia using 2-0 silk over it's sleeve. The pocket was cleansed with antibiotic containing solution . The pulse generator was introduced into the operative field, and the atrial and ventricular lead tips were secured into the generator . A gentle tug showed the leads were securely fastened. The device was introduced into the pocket. The subcutaneous tissues were closed in a double layer fashion with interrupted sutures, using 2-0 Vicryl suture , and the skin was closed in a continuous fashion using 4-0 Vicryl suture in a continuous fashion. The area was cleansed, and an Aquacel dressing was applied . The patient tolerated the procedure well with no complications. MEASURED DATA: Right atrial: P-wave sensing 3.4 mV Right ventricular lead: R-wave sensing 15.8 mV, impedance 29153 Ohms, threshold 0.5 volts at 0.4 milliseconds PROGRAMMING: VTI 40 Implants ICD INFORMATION: Pulse generator: Biotronik Acticor 7 VR-T DX DF4 ProMRI model 114993, serial [id number] Right ventricular lead: Biotronik ICD Plexa Pro MRI S DX 65/15 model 221817, serial [id number] Estima
--- NOTE | 2022-01-13 14:06 | SUR.PHASEII ---
Dr Thayer here to see pt, informed pt and this rn pt ok to go home after next dose ancef at 1730.
[2022-01-13] MEDS: HYDROcodone/acetaminophen (*CRX) 5-325 MG TABLET 1 TAB PO (14:26)
--- NOTE | 2022-01-13 17:18 | SUR.PHASEII ---
patient discharged in stable condition. discharge instructions reviewed post ICD placement including incision/device care, restrictions, s/s of infection or issue, when to call MD office/911, when to follow up with MD office, post op outpatient chest xray order, new order to start po atbx sent to pharmacy and other med review. patient's questions were answered and she had no further questions/concerns and verbalized no complaints.
== END 2022-01-13 17:19 | disposition home or self-care (01) ==
PROVIDERS: PCP Emergency Medicine; Visit Provider Internal Medicine Cardiovascular Disease
PROC: 0JH608Z Insertion of Defibrillator Generator into Chest Subcutaneous Tissue and Fascia, Open Approach (ICD-10-PCS; CPT 33249; principal; 2022-01-13 11:00)
DX: I42.0 Dilated cardiomyopathy (principal); I50.40 Unspecified combined systolic (congestive) and diastolic (congestive) heart failure; I25.10 Atherosclerotic heart disease of native coronary artery without angina pectoris; E10.21 Type 1 diabetes mellitus with diabetic nephropathy; E55.9 Vitamin D deficiency, unspecified; Q21.1 Atrial septal defect; E78.00 Pure hypercholesterolemia, unspecified; E10.51 Type 1 diabetes mellitus with diabetic peripheral angiopathy without gangrene; F17.210 Nicotine dependence, cigarettes, uncomplicated; Z79.4 Long term (current) use of insulin; Z86.16 Personal history of COVID-19
CPT/HCPCS: 33249; 36415; 71045; 80048; 85025; 85610; 93005; A9270; C1722; C1777; C1894; J0690; J2250; J3010

== ENCOUNTER 2022-01-21 15:22 | Outpatient (CLI) | payer OTHER, SELFPAY ==
[2022-01-21 16:06] LABS: Alanine Aminotransferase 67 U/L (4-35); Albumin Level 4.3 g/dL (3.5-5.1); Alkaline Phosphatase 132 U/L (38-126); Anion Gap 3 mmol/L (8-16); Aspartate Amino Transferase 74 U/L (14-36); Bilirubin,Total 0.3 mg/dL (0.2-1.3); Blood Urea Nitrogen 16 mg/dL (7-17); Calcium 9.4 mg/dL (8.4-10.2); Carbon Dioxide 34 mmol/L (22-30); Chloride 100 mmol/L (98-107); Cholesterol 164 mg/dL (0-200); Estimated Glomerular Filt Rate > 60; Glucose 104 mg/dL (65-110); HDL Direct 32 mg/dL; Potassium 4.3 mmol/L (3.4-5.0); Sodium 137 mmol/L (137-145); Triglycerides 70 mg/dL (<150)
[2022-01-21 16:16] LABS: LDL Cholesterol Direct 107 mg/dL
[2022-01-21 16:45] LABS: Creatinine Urine 6.5 mg/dL
[2022-01-21 16:49] LABS: MALB Creatinine Ratio 213.8 mg/g (0-30); Microalbumin Urine Random 13.9 mg/L (0-16.7)
[2022-01-21 17:08] LABS: Hemoglobin A1C 9.4 % (<5.7)
[2022-01-24 22:08] LABS: C-Peptide 0.12 ng/mL (0.80-3.85)
== END 2022-01-21 15:23 | disposition home or self-care (01) ==
LOC: ANHLAB 15:25
PROVIDERS: PCP Emergency Medicine
DX: E10.65 Type 1 diabetes mellitus with hyperglycemia (principal); E78.5 Hyperlipidemia, unspecified
CPT/HCPCS: 36415; 80053; 80061; 82043; 83036; 84443; 84681

== ENCOUNTER 2022-02-10 12:42 | Outpatient (CLI) | payer OTHER, SELFPAY ==
[2022-02-10 13:51] LABS: Alanine Aminotransferase 35 U/L (6-35); Albumin Level 4.7 g/dL (3.5-5.1); Alkaline Phosphatase 141 U/L (38-126); Anion Gap 9 mmol/L (8-16); Aspartate Amino Transferase 39 U/L (14-36); Bilirubin,Total 0.5 mg/dL (0.2-1.3); Blood Urea Nitrogen 13 mg/dL (7-17); Calcium 9.2 mg/dL (8.4-10.2); Carbon Dioxide 25 mmol/L (22-30); Chloride 108 mmol/L (98-107); Cholesterol 151 mg/dL (0-200); Estimated Glomerular Filt Rate > 60; Glucose 140 mg/dL (65-110); HDL Direct 32 mg/dL; Potassium 4.5 mmol/L (3.4-5.0); Sodium 142 mmol/L (137-145); Triglycerides 64 mg/dL (<150)
[2022-02-10 14:02] LABS: LDL Cholesterol Direct 90 mg/dL
[2022-02-10 14:12] LABS: Creatinine Urine 36.3 mg/dL
[2022-02-10 14:13] LABS: Hemoglobin A1C 8.3 % (<5.7)
[2022-02-10 14:16] LABS: MALB Creatinine Ratio 119.3 mg/g (0-30); Microalbumin Urine Random 43.3 mg/L (0-16.7)
[2022-02-10 14:20] LABS: Thyroid Stimulating Hormone 0.386 uIU/mL (0.465-4.680)
[2022-02-10 14:55] LABS: Free T4 Free Thyroxine 1.43 ng/mL (0.78-2.19)
[2022-02-13 05:04] LABS: C-Peptide 0.12 ng/mL (0.80-3.85)
== END 2022-02-10 12:43 | disposition home or self-care (01) ==
LOC: ANHLAB 12:44
PROVIDERS: PCP Emergency Medicine; Visit Provider Internal Medicine Endocrinology, Diabetes & Metabolism
DX: E10.65 Type 1 diabetes mellitus with hyperglycemia (principal); E78.5 Hyperlipidemia, unspecified
CPT/HCPCS: 36415; 80053; 80061; 82043; 83036; 84439; 84443; 84681

== ENCOUNTER 2022-02-21 11:24 | Outpatient (CLI) | payer OTHER, SELFPAY ==
[2022-02-21 12:09] LABS: Anion Gap 5 mmol/L (8-16); Blood Urea Nitrogen 13 mg/dL (7-17); Calcium 8.9 mg/dL (8.4-10.2); Carbon Dioxide 30 mmol/L (22-30); Chloride 103 mmol/L (98-107); Estimated Glomerular Filt Rate > 60; Glucose 47 mg/dL (65-110); Potassium 4.5 mmol/L (3.4-5.0); Sodium 138 mmol/L (137-145)
== END 2022-02-21 11:25 | disposition home or self-care (01) ==
LOC: ANHLAB 11:26
PROVIDERS: PCP Emergency Medicine; Visit Provider Internal Medicine Cardiovascular Disease
DX: R03.0 Elevated blood-pressure reading, without diagnosis of hypertension (principal)
CPT/HCPCS: 36415; 80048

== ENCOUNTER 2022-03-03 15:10 | Outpatient (CLI) | payer OTHER, SELFPAY ==
--- NOTE | ~2022-03-03 | MM_ITS ---
EXAMINATION: MM screening souleymane BI w nayeli HISTORY: Screening TECHNIQUE: Craniocaudal and mediolateral oblique 3-D tomosynthesis images were obtained and synthetic 2-D images were generated. CAD analysis was submitted and interpreted. COMPARISON: No prior mammogram is available for comparison at this institution. BREAST PARENCHYMAL COMPOSITION: The breasts are heterogeneously dense, which may obscure small masses . FINDINGS: There is no evidence of suspicious mass, calcification, or architectural distortion to sugg est malignancy in either breast. There has been no suspicious interval change. IMPRESSION: 1. No mammographic evidence of malignancy. 2. Recommend routine screening mammography in one year. BI-RADS Category 1: Negative Reviewed, dictated and finalized at location A.
== END 2022-03-03 15:11 | disposition home or self-care (01) ==
PROVIDERS: PCP Emergency Medicine; Visit Provider Emergency Medicine
DX: Z12.31 Encounter for screening mammogram for malignant neoplasm of breast (principal)
CPT/HCPCS: 77063; 77067

== ENCOUNTER 2022-04-04 11:19 | Outpatient (CLI) | payer OTHER, SELFPAY ==
[2022-04-04 12:10] LABS: Anion Gap 5 mmol/L (8-16); Blood Urea Nitrogen 12 mg/dL (7-17); Calcium 8.9 mg/dL (8.4-10.2); Carbon Dioxide 30 mmol/L (22-30); Chloride 103 mmol/L (98-107); Estimated Glomerular Filt Rate > 60; Glucose 63 mg/dL (65-110); Potassium 4.4 mmol/L (3.4-5.0); Sodium 138 mmol/L (137-145)
== END 2022-04-04 11:20 | disposition home or self-care (01) ==
LOC: ANHLAB 11:21
PROVIDERS: PCP Emergency Medicine; Visit Provider Internal Medicine Cardiovascular Disease
DX: I50.42 Chronic combined systolic (congestive) and diastolic (congestive) heart failure (principal)
CPT/HCPCS: 36415; 80048

== ENCOUNTER 2022-05-30 11:04 | Outpatient (CLI) | payer OTHER, SELFPAY ==
[2022-05-30 11:44] LABS: Hemoglobin A1C 8.2 % (<5.7)
[2022-05-30 11:49] LABS: Creatinine Urine 31.9 mg/dL
[2022-05-30 11:50] LABS: Alanine Aminotransferase 35 U/L (6-35); Albumin Level 4.1 g/dL (3.5-5.1); Alkaline Phosphatase 106 U/L (38-126); Anion Gap 8 mmol/L (8-16); Aspartate Amino Transferase 35 U/L (14-36); Bilirubin,Total 0.4 mg/dL (0.2-1.3); Blood Urea Nitrogen 14 mg/dL (7-17); Calcium 9.1 mg/dL (8.4-10.2); Carbon Dioxide 26 mmol/L (22-30); Chloride 106 mmol/L (98-107); Cholesterol 146 mg/dL (0-200); Estimated Glomerular Filt Rate > 60; Glucose 52 mg/dL (65-110); HDL Direct 34 mg/dL; Potassium 4.4 mmol/L (3.4-5.0); Sodium 140 mmol/L (137-145); Triglycerides 82 mg/dL (<150)
[2022-05-30 11:54] LABS: LDL Cholesterol Direct 84 mg/dL
[2022-05-30 12:11] LABS: Thyroid Stimulating Hormone 0.708 uIU/mL (0.465-4.680)
[2022-05-30 12:42] LABS: Free T4 Free Thyroxine 1.28 ng/mL (0.78-2.19)
== END 2022-05-30 11:05 | disposition home or self-care (01) ==
PROVIDERS: PCP Emergency Medicine; Visit Provider Nurse Practitioner
DX: E10.65 Type 1 diabetes mellitus with hyperglycemia (principal); E78.5 Hyperlipidemia, unspecified
CPT/HCPCS: 36415; 80053; 80061; 82043; 83036; 84439; 84443

== ENCOUNTER 2022-07-18 12:07 | Outpatient (CLI) | payer OTHER, SELFPAY ==
[2022-07-18 12:59] LABS: Alanine Aminotransferase 30 U/L (6-35); Albumin Level 4.2 g/dL (3.5-5.1); Alkaline Phosphatase 115 U/L (38-126); Anion Gap 11 mmol/L (8-16); Aspartate Amino Transferase 33 U/L (14-36); Bilirubin,Total 0.3 mg/dL (0.2-1.3); Blood Urea Nitrogen 11 mg/dL (7-17); Calcium 8.4 mg/dL (8.4-10.2); Carbon Dioxide 28 mmol/L (22-30); Chloride 101 mmol/L (98-107); Cholesterol 112 mg/dL (0-200); Estimated Glomerular Filt Rate > 60; Glucose 183 mg/dL (65-110); HDL Direct 33 mg/dL; Potassium 4.2 mmol/L (3.4-5.0); Sodium 140 mmol/L (137-145); Triglycerides 51 mg/dL (<150)
[2022-07-18 13:09] LABS: LDL Cholesterol Direct 65 mg/dL
[2022-07-18 13:25] LABS: SARS-CoV-2 RNA PCR Negative
[2022-07-21 14:38] LABS: GGT 16 U/L (3-70)
== END 2022-07-18 12:08 | disposition home or self-care (01) ==
PROVIDERS: PCP Emergency Medicine; Referring Provider Internal Medicine Cardiovascular Disease; Visit Provider Emergency Medicine
DX: I72.0 Aneurysm of carotid artery (principal); I50.42 Chronic combined systolic (congestive) and diastolic (congestive) heart failure; I25.10 Atherosclerotic heart disease of native coronary artery without angina pectoris; E78.00 Pure hypercholesterolemia, unspecified
CPT/HCPCS: 36415; 80053; 80061; 82977; U0003; U0005

== ENCOUNTER 2022-07-27 15:36 | Outpatient (CLI) | payer OTHER, SELFPAY ==
[2022-07-27 16:07] LABS: Basophils Absolute Auto 0.1 K/mm3 (0.0-0.1); Basophils Percent Auto 1.1 % (0.2-1.2); Eosinophils Absolute Auto 0.2 K/mm3 (0-0.3); Eosinophils Percent Auto 2.4 % (0-4.4); Hematocrit 39.3 % (37.0-47.0); Immature Granulocyte Absolute 0.02 K/mm3 (0.00-0.031); Immature Granulocyte Percent A 0.2 % (0-0.5); Lymphocytes Absolute Auto 2.25 K/mm3 (0.9-3.2); Lymphocytes Percent Auto 27.1 % (18.3-44.2); Mean Corpuscular HGB Conc 33.1 g/dl (32-36); Mean Corpuscular Hemoglobin 29.8 pg (26-34); Mean Corpuscular Volume 90.1 fl (80-100); Mean Platelet Volume 10.8 fl (7.4-10.4); Monocytes Absolute Auto 0.6 K/mm3 (0.1-0.6); Monocytes Percent Auto 7.2 % (2.6-8.5); Neutrophils Absolute Auto 5.1 K/mm3 (1.3-6.7); Platelet Count Result 303 k/mm3 (150-375); Red Blood Count 4.36 M/mm3 (4.2-5.4); Red Cell Distribution Width 12.6 % (11.5-14.5); White Blood Count 8.3 K/mm3 (4.5-10.0)
[2022-07-27 16:18] LABS: Anion Gap 12 mmol/L (8-16); Blood Urea Nitrogen 18 mg/dL (7-17); Calcium 8.8 mg/dL (8.4-10.2); Carbon Dioxide 25 mmol/L (22-30); Chloride 99 mmol/L (98-107); Estimated Glomerular Filt Rate > 60; Glucose 281 mg/dL (65-110); Phosphorus 4.3 mg/dL (2.5-4.5); Potassium 4.1 mmol/L (3.4-5.0); Sodium 136 mmol/L (137-145)
[2022-07-27 16:20] LABS: Hemoglobin A1C 9.5 % (<5.7)
[2022-07-27 16:27] LABS: Appearance Urine Clear (Clear); Bilirubin Urine Negative (Negative); Blood Urine Negative (Negative); Color Urine Yellow (Yellow); Glucose Urine UA 3+ mg/dL (Negative); Ketones Urine Negative (Negative); Leukocyte Esterase Ur Negative LEU/UL (NEGATIVE); Nitrate Urine Negative (Negative); Protein Urine Negative (Negative); Urobilinogen Urine 0.2 mg/dL (<2.0)
[2022-07-27 16:30] LABS: RBC Urine 0-2 /hpf (0-2); Squamous Epithelial Cell Urine Rare /hpf (Few); WBC Urine 0-3 /hpf (0-3)
[2022-07-27 16:31] LABS: Add Urine Microscopic? YES
[2022-07-27 16:33] LABS: Creatinine Urine 70.9 mg/dL; Total Protein Urine Random 7 mg/dL
== END 2022-07-27 15:37 | disposition home or self-care (01) ==
LOC: ANHLAB 15:39
PROVIDERS: PCP Emergency Medicine; Visit Provider Hospitalist
DX: I50.22 Chronic systolic (congestive) heart failure (principal); I12.9 Hypertensive chronic kidney disease with stage 1 through stage 4 chronic kidney disease, or unspecified chronic kidney disease; N18.2 Chronic kidney disease, stage 2 (mild)
CPT/HCPCS: 36415; 80069; 81001; 82306; 82570; 83036; 84156; 85025

== ENCOUNTER 2023-01-23 16:31 | Outpatient (CLI) | payer OTHER, SELFPAY ==
[2023-01-23 16:53] LABS: Basophils Absolute Auto 0.1 K/mm3 (0.0-0.1); Basophils Percent Auto 0.6 % (0.2-1.2); Eosinophils Absolute Auto 0.3 K/mm3 (0-0.3); Eosinophils Percent Auto 2.8 % (0-4.4); Hematocrit 44.3 % (37.0-47.0); Hemoglobin 14.6 g/dL (12.0-15.0); Immature Granulocyte Absolute 0.03 K/mm3 (0.00-0.031); Immature Granulocyte Percent A 0.3 % (0-0.5); Lymphocytes Absolute Auto 2.84 K/mm3 (0.9-3.2); Lymphocytes Percent Auto 30.6 % (18.3-44.2); Mean Corpuscular Hemoglobin 29.4 pg (26-34); Mean Corpuscular Volume 89.3 fl (80-100); Mean Platelet Volume 10.2 fl (7.4-10.4); Monocytes Absolute Auto 0.6 K/mm3 (0.1-0.6); Monocytes Percent Auto 6.2 % (2.6-8.5); Neutrophils Absolute Auto 5.5 K/mm3 (1.3-6.7); Neutrophils Percent Auto 59.5 % (45.5-73.1); Platelet Count Result 318 k/mm3 (150-375); Red Blood Count 4.96 M/mm3 (4.2-5.4); Red Cell Distribution Width 13.4 % (11.5-14.5); White Blood Count 9.3 K/mm3 (4.5-10.0)
[2023-01-23 16:54] LABS: Appearance Urine Clear (Clear); Bilirubin Urine Negative (Negative); Blood Urine Negative (Negative); Color Urine Yellow (Yellow); Glucose Urine UA Negative (Negative); Ketones Urine Negative (Negative); Leukocyte Esterase Ur Negative LEU/UL (NEGATIVE); Nitrate Urine Negative (Negative); Protein Urine Negative (Negative); Specific Grav Ur 1.008 (1.001-1.035); Urobilinogen Urine 0.2 mg/dL (<2.0)
[2023-01-23 17:04] LABS: Add Urine Microscopic? NO
[2023-01-23 17:05] LABS: Albumin Level 4.4 g/dL (3.5-5.1); Anion Gap 8 mmol/L (8-16); Blood Urea Nitrogen 11 mg/dL (7-17); Calcium 8.9 mg/dL (8.4-10.2); Carbon Dioxide 27 mmol/L (22-30); Chloride 102 mmol/L (98-107); Estimated Glomerular Filt Rate > 60; Glucose 138 mg/dL (65-110); Potassium 4.1 mmol/L (3.4-5.0); Sodium 137 mmol/L (137-145)
[2023-01-23 17:09] LABS: Creatinine Urine 29.7 mg/dL; Total Protein Urine Random 15 mg/dL; Ur Ttl Prot Creatinine Ratio 0.51 mg/mg (0-0.20)
[2023-01-23 17:25] LABS: Vitamin D 25 Hydroxy 58.8 ng/mL
[2023-01-23 17:33] LABS: Hemoglobin A1C 8.9 % (<5.7)
== END 2023-01-23 16:32 | disposition home or self-care (01) ==
LOC: ANHLAB 16:33
PROVIDERS: PCP Emergency Medicine; Visit Provider Hospitalist
DX: N18.2 Chronic kidney disease, stage 2 (mild) (principal); I50.22 Chronic systolic (congestive) heart failure; I13.0 Hypertensive heart and chronic kidney disease with heart failure and stage 1 through stage 4 chronic kidney disease, or unspecified chronic kidney disease
CPT/HCPCS: 36415; 80069; 81003; 82306; 82570; 83036; 84156; 85025

== ENCOUNTER 2023-04-29 18:03 | Emergency (ER) | payer OTHER, SELFPAY ==
[2023-04-29 18:04] VITALS: BP 187/69; PULSE 78; RESP 18; TEMP 36.4; O2SAT 100
--- NOTE | 2023-04-29 19:05 | PC.NURSE ---
This RN assumed care of patient. This RN took patient report from LEIDA Parkinson.
--- NOTE | 2023-04-29 19:11 | ED.EXTPRO ---
HPI - Extremity Problem General Chief complaint: Extremity Problem,Nontraumatic Stated complaint: right leg pain Time Seen by Provider: 04/29/23 18:36 Source: patient Mode of arrival: ambulatory Limitations: no limitations History of Present Illness HPI Narrative: This is a 52 year old female that presents to the ER for right lower extremity pain. Reports pain and swelling to the right thigh and calf. Reports the pain is crampy in nature. No recent injury or trauma. Denies fever, redness, chest pain or shortness of breath. Related Data Home Medications Medication Instructions Recorded Confirmed calcium carbonate 600 mg calcium 1,200 mg PO DAILY 10/01/21 01/13/22 (1,500 mg) tablet cholecalciferol (vitamin D3) 125 125 mcg PO DAILY 10/01/21 01/13/22 mcg (5,000 unit) tablet (Vitamin D3) insulin glargine 100 unit/mL 30 unit subcut QAM 10/01/21 12/02/21 subcutaneous solution (Lantus U-100 Insulin) insulin glulisine U-100 100 1 sliding scale dose subcut 10/01/21 01/13/22 unit/mL subcutaneous solution USEASDIRECTD (Apidra U-100 Insulin) furosemide 40 mg tablet 20 mg PO DAILY 12/02/21 01/13/22 sacubitril 97 mg-valsartan 103 mg 1 tablet PO BID 12/02/21 01/13/22 tablet (Entresto) Allergies Allergy/AdvReac Type Severity Reaction Status Date / Time latex Allergy Hives Verified 04/29/23 19:15 Review of Systems Review of Systems: CONSTITUTIONAL: Denies fever CARDIOVASCULAR: Reports edema. Denies chest pain RESPIRATORY: Denies dyspnea. MUSCULOSKELETAL: Denies back pain, and myalgia. NEUROLOGIC: Denies numbness All systems reviewed & are unremarkable except as noted in HPI and below PMFSH Past Medical History Medical History Diabetes mellitus Diabetic nephropathy associated with type 1 diabetes mellitus History of COVID-19 Hyperlipidemia Nonischemic cardiomyopathy Tobacco use disorder, continuous Vitamin D deficiency Surgical History Surgical History History of total abdominal hysterectomy and bilateral salpingo-oophorectomy Due to endometriosis and uterine fibroids Family History Family History Mother Osteoarthritis In good health Father In good health Social History Social History (Updated 04/29/23 @ 19:14 by Nita Gutierres PA-C) Social History: The patient lives at home with her son, grandson and granddaughter. She has 2 other adult children. 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 She has smoked 1 pack of cigarettes per day since the age of 15. She reports occasional alcohol use in moderation. She denies listed substance use. Smoking packs per day: 1 Smoking cigarettes per day: 20.0 Years smoked: 35 Smoking pack-years: 35.00 Smoking status: Former smoker Tobacco type: cigarettes Alcohol intake: never Substance use: never Spiritual care concerns: No Exam Narrative: GENERAL: Well-appearing, well-nourished, and in no acute distress. HEAD: Normocephalic, atraumatic. EYES: EOMI. CHEST: No respiratory distress. HEART: Regular rate EXTREMITIES: Normal range of motion. Mild non-pitting edema noted to the right lower leg. No erythema or warmth. Normal DP pulse. Normal sensation SKIN: Warm, dry, no rash. NEURO: No focal deficits. Alert and oriented x3. PSYCH: Normal mood and affect Course Course Emergency Course: Patient was updated on work-up and agrees with plan of care Vital Signs Vital signs: Vital Signs Temperature 97.6 F 04/29/23 18:04 Pulse Rate 78 04/29/23 18:04 Respiratory Rate 18 04/29/23 18:04 Blood Pressure 187/69 H 04/29/23 18:04 Pulse Oximetry 100 04/29/23 18:04 Oxygen Delivery Room Air 04/29/23 18:04 Temperature 97.6 F 04/29/23 18:04 Pulse Rate 78 04/29/23 18:04 Respi
[2023-04-29 19:35] LABS: Basophils Absolute Auto 0.1 K/mm3 (0.0-0.1); Basophils Percent Auto 1.1 % (0.2-1.2); Eosinophils Absolute Auto 0.2 K/mm3 (0-0.3); Eosinophils Percent Auto 3.3 % (0-4.4); Hematocrit 45.2 % (37.0-47.0); Hemoglobin 14.8 g/dL (12.0-15.0); Immature Granulocyte Absolute 0.02 K/mm3 (0.00-0.031); Immature Granulocyte Percent A 0.3 % (0-0.5); Lymphocytes Absolute Auto 2.67 K/mm3 (0.9-3.2); Lymphocytes Percent Auto 36.9 % (18.3-44.2); Mean Corpuscular HGB Conc 32.7 g/dl (32-36); Mean Corpuscular Volume 91.7 fl (80-100); Mean Platelet Volume 10.6 fl (7.4-10.4); Monocytes Absolute Auto 0.7 K/mm3 (0.1-0.6); Monocytes Percent Auto 9.4 % (2.6-8.5); Neutrophils Absolute Auto 3.5 K/mm3 (1.3-6.7); Platelet Count Result 272 k/mm3 (150-375); Red Blood Count 4.93 M/mm3 (4.2-5.4); Red Cell Distribution Width 13.2 % (11.5-14.5); White Blood Count 7.2 K/mm3 (4.5-10.0)
[2023-04-29 19:46] LABS: Partial Thromboplastin Time 28.9 SECONDS (22.3-36.8)
[2023-04-29 19:47] LABS: Anion Gap 4 mmol/L (8-16); Blood Urea Nitrogen 16 mg/dL (7-17); Calcium 9.1 mg/dL (8.4-10.2); Carbon Dioxide 30 mmol/L (22-30); Chloride 103 mmol/L (98-107); Estimated CRCL calculation 72 ml/min; Estimated Glomerular Filt Rate > 60; Glucose 196 mg/dL (65-110); Magnesium 2.2 mg/dL (1.6-2.3); Potassium 4.6 mmol/L (3.4-5.0); Sodium 137 mmol/L (137-145)
[2023-04-29 20:46] VITALS: BP 152/64; PULSE 58; RESP 18; O2SAT 99
== END 2023-04-29 20:46 | disposition home or self-care (01) ==
PROVIDERS: Emergency Provider Physician Assistant; PCP Emergency Medicine
DX: M79.604 Pain in right leg (principal); E10.21 Type 1 diabetes mellitus with diabetic nephropathy; E78.5 Hyperlipidemia, unspecified; I42.8 Other cardiomyopathies; E55.9 Vitamin D deficiency, unspecified; F17.210 Nicotine dependence, cigarettes, uncomplicated; Z86.16 Personal history of COVID-19; Z79.4 Long term (current) use of insulin
CPT/HCPCS: 36415; 80048; 83735; 85025; 85380; 85610; 85730; 99283

== ENCOUNTER 2023-04-30 07:11 | Outpatient (CLI) | payer OTHER, SELFPAY ==
--- NOTE | ~2023-04-30 | US_ITS ---
EXAMINATION: US venous doppler LE RT DATE: 04/30/2023 07:55 INDICATION: Right lower limb pain and swelling TECHNIQUE: Alexis scale images without and with compression and Doppler images of the right lower extre mity veins were obtained. COMPARISON: 10/01/2021 FINDINGS: The right common femoral vein, profunda femoral vein, femoral vein, popliteal vein, peronea l trunk, posterior tibial veins, and greater saphenous vein are patent. IMPRESSION: 1. Patent right lower extremity veins. No evidence of deep venous thrombosis. Reviewed, dictated and finalized at location A.
== END 2023-04-30 07:12 | disposition home or self-care (01) ==
PROVIDERS: PCP Emergency Medicine; Visit Provider Physician Assistant
DX: M79.89 Other specified soft tissue disorders (principal)
CPT/HCPCS: 93971

== ENCOUNTER 2023-05-01 16:48 | Outpatient (CLI) | payer OTHER, SELFPAY ==
--- NOTE | ~2023-05-01 | XR_ITS ---
EXAM: XR lumbar spine 2-3V DATE: 05/01/2023 17:36 HISTORY: R LEG, CALF PAIN AND RT HIP PAIN X 9 DAYS . COMPARISON: None available. FINDINGS: Atherosclerotic calcifications without evident aneurysm. Decreased bone mineralization. 6 nonrib-bearing lumbar-type vertebral bodies which may be due to 6 lumbar-type vertebral bodies versus hypoplastic ribs at T12. Mild disc space narrowing at L3-4 and L4-5. Vertebral body heights are main tained. Normal posterior elements. IMPRESSION: Osteopenia. Mild lower lumbar degenerative disc disease. Otherwise unremarkable lumbar sp ine radiograph findings. Reviewed, dictated and finalized at location K. IMPRESSION: Osteopenia. Mild lower lumbar degenerative disc disease. Otherwise unremarkable lumbar spine radiograph findings.
--- NOTE | ~2023-05-01 | XR_ITS ---
EXAM: XR hip RT min 2V, XR femur RT min 2V DATE: 05/01/2023 17:36 HISTORY: R LEG, CALF PAIN . COMPARISON: None. FINDINGS: Decreased mineralization. No fracture or dislocation. No lytic or blastic lesion. Mild deg enerative change at the right SI joint, pubic symphysis, right hip and right knee. No erosion or heather osteal change. Vascular calcifications. Pelvic phleboliths. IMPRESSION: Osteopenia. Polyarticular osteoarthritis. Reviewed, dictated and finalized at location K. IMPRESSION: Osteopenia. Polyarticular osteoarthritis.
== END 2023-05-01 16:49 | disposition home or self-care (01) ==
PROVIDERS: PCP Emergency Medicine; Visit Provider Emergency Medicine
DX: M79.661 Pain in right lower leg (principal); M85.88 Other specified disorders of bone density and structure, other site; M51.36 Other intervertebral disc degeneration, lumbar region; M16.11 Unilateral primary osteoarthritis, right hip; M85.851 Other specified disorders of bone density and structure, right thigh
CPT/HCPCS: 72100; 73502; 73552

== ENCOUNTER 2023-05-24 13:53 | Outpatient (CLI) | payer OTHER, SELFPAY ==
--- NOTE | ~2023-05-24 | US_ITS ---
EXAMINATION: US art doppler w press LE BI DATE: 05/24/2023 15:56 INDICATION: Right lower limb pain TECHNIQUE: Segmental pressures and plethysmographic and Doppler waveforms of the brachial and lower e xtremity arteries were obtained. COMPARISON: None. FINDINGS: Right and left brachial artery pressures of 123 mm Hg and 116 mm Hg, respectively, are concordant (no rmal difference <= 30 mmHg). The right and left high-thigh pressure indices are 0.79 and 1.03, respec tively (normal > 1.2). The right ankle-brachial index (BOBBY) is 0.48 (normal >= 0.9-1). The right great toe-brachial index (T BI) is 0.16 (normal >= 0.6-0.8). The right lower extremity segmental pressure gradients are increased between the high and low right thigh (normal gradients <= 20-30 mmHg between adjacent levels on the same leg or the same levels on the two legs). Arterial waveforms are biphasic with systolic upstrokes remaining within normal limits throughout the arteries of the right lower limb. The left BOBBY is 0.49. The left TBI is 0.24. The left lower extremity segmental pressure gradients are significantly increased between the left high and low thigh as well as between the left oukho-nua-el ee popliteal artery and the left posterior tibial artery. Arterial waveforms are biphasic with systol ic upstrokes remaining within normal limits throughout the arteries of the left lower limb. IMPRESSION: 1. 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 Reviewed, dictated and finalized at location A. IMPRESSION: 1. 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
== END 2023-05-24 13:54 | disposition home or self-care (01) ==
PROVIDERS: PCP Emergency Medicine; Visit Provider Emergency Medicine
DX: M79.661 Pain in right lower leg (principal); I73.9 Peripheral vascular disease, unspecified
CPT/HCPCS: 93923

== ENCOUNTER 2023-05-29 11:15 | Outpatient (CLI) | payer OTHER, SELFPAY ==
[2023-05-29 11:56] LABS: Basophils Absolute Auto 0.1 K/mm3 (0.0-0.1); Basophils Percent Auto 0.8 % (0.2-1.2); Eosinophils Absolute Auto 0.2 K/mm3 (0-0.3); Eosinophils Percent Auto 1.7 % (0-4.4); Hematocrit 47.6 % (37.0-47.0); Hemoglobin 15.7 g/dL (12.0-15.0); Immature Granulocyte Absolute 0.03 K/mm3 (0.00-0.031); Immature Granulocyte Percent A 0.3 % (0-0.5); Lymphocytes Absolute Auto 2.14 K/mm3 (0.9-3.2); Lymphocytes Percent Auto 19.4 % (18.3-44.2); Mean Corpuscular Hemoglobin 29.8 pg (26-34); Mean Corpuscular Volume 90.5 fl (80-100); Mean Platelet Volume 11.1 fl (7.4-10.4); Monocytes Absolute Auto 0.6 K/mm3 (0.1-0.6); Monocytes Percent Auto 5.7 % (2.6-8.5); Neutrophils Percent Auto 72.1 % (45.5-73.1); Platelet Count Result 272 k/mm3 (150-375); Red Blood Count 5.26 M/mm3 (4.2-5.4)
[2023-05-29 12:00] LABS: Appearance Urine Clear (Clear); Bilirubin Urine Negative (Negative); Blood Urine Negative (Negative); Color Urine Yellow (Yellow); Glucose Urine UA 3+ mg/dL (Negative); Ketones Urine Negative (Negative); Leukocyte Esterase Ur Negative LEU/UL (NEGATIVE); Nitrate Urine Negative (Negative); Protein Urine Negative (Negative); Specific Grav Ur 1.006 (1.001-1.035); Urobilinogen Urine 0.2 mg/dL (<2.0); pH Urine 5.5 (5.0-9.0)
[2023-05-29 12:01] LABS: Add Urine Microscopic? NO
[2023-05-29 12:22] LABS: Creatinine Urine 4.9 mg/dL; Total Protein Urine Random 13 mg/dL; Ur Ttl Prot Creatinine Ratio 2.65 mg/mg (0-0.20)
[2023-05-29 12:58] LABS: Vitamin D 25 Hydroxy 45.9 ng/mL
[2023-05-29 14:14] LABS: Hemoglobin A1C 8.1 % (<5.7)
[2023-05-29 14:51] LABS: Anion Gap 9 mmol/L (8-16); Blood Urea Nitrogen 17 mg/dL (7-17); Calcium 9.5 mg/dL (8.4-10.2); Carbon Dioxide 26 mmol/L (22-30); Chloride 102 mmol/L (98-107); Estimated Glomerular Filt Rate > 60; Glucose 193 mg/dL (65-110); Phosphorus 4.7 mg/dL (2.5-4.5); Potassium 5.1 mmol/L (3.4-5.0); Sodium 137 mmol/L (137-145)
== END 2023-05-29 11:16 | disposition home or self-care (01) ==
LOC: ANHLAB 11:18
PROVIDERS: PCP Emergency Medicine; Visit Provider Hospitalist
DX: I12.9 Hypertensive chronic kidney disease with stage 1 through stage 4 chronic kidney disease, or unspecified chronic kidney disease (principal); N18.2 Chronic kidney disease, stage 2 (mild)
CPT/HCPCS: 36415; 80069; 81003; 82306; 82570; 83036; 84156; 85025

== ENCOUNTER 2023-09-25 11:29 | Outpatient (CLI) | payer OTHER, SELFPAY ==
[2023-09-25 12:15] LABS: Appearance Urine Clear (Clear); Bilirubin Urine Negative (Negative); Blood Urine Negative (Negative); Color Urine Yellow (Yellow); Glucose Urine UA 3+ mg/dL (Negative); Ketones Urine Negative (Negative); Leukocyte Esterase Ur Negative LEU/UL (NEGATIVE); Nitrate Urine Negative (Negative); Protein Urine Negative (Negative); Specific Grav Ur 1.007 (1.001-1.035); Urobilinogen Urine 0.2 mg/dL (<2.0)
[2023-09-25 12:22] LABS: Add Urine Microscopic? NO
[2023-09-25 12:23] LABS: Basophils Absolute Auto 0.1 K/mm3 (0.0-0.1); Basophils Percent Auto 1.1 % (0.2-1.2); Eosinophils Absolute Auto 0.2 K/mm3 (0-0.3); Eosinophils Percent Auto 2.9 % (0-4.4); Hematocrit 50.8 % (37.0-47.0); Hemoglobin 15.8 g/dL (12.0-15.0); Immature Granulocyte Absolute 0.02 K/mm3 (0.00-0.031); Immature Granulocyte Percent A 0.2 % (0-0.5); Lymphocytes Absolute Auto 2.33 K/mm3 (0.9-3.2); Lymphocytes Percent Auto 28.9 % (18.3-44.2); Mean Corpuscular HGB Conc 31.1 g/dl (32-36); Mean Corpuscular Hemoglobin 28.8 pg (26-34); Mean Corpuscular Volume 92.7 fl (80-100); Mean Platelet Volume 11.4 fl (7.4-10.4); Monocytes Absolute Auto 0.5 K/mm3 (0.1-0.6); Monocytes Percent Auto 6.3 % (2.6-8.5); Neutrophils Absolute Auto 4.9 K/mm3 (1.3-6.7); Neutrophils Percent Auto 60.6 % (45.5-73.1); Platelet Count Result 278 k/mm3 (150-375); Red Blood Count 5.48 M/mm3 (4.2-5.4); Red Cell Distribution Width 13.4 % (11.5-14.5); White Blood Count 8.1 K/mm3 (4.5-10.0)
[2023-09-25 12:30] LABS: Creatinine Urine 11.1 mg/dL; Total Protein Urine Random 11 mg/dL; Ur Ttl Prot Creatinine Ratio 0.99 mg/mg (0-0.20)
[2023-09-25 12:30] LABS: Alanine Aminotransferase 30 U/L (6-35); Albumin Level 4.4 g/dL (3.5-5.1); Alkaline Phosphatase 118 U/L (38-126); Anion Gap 7 mmol/L (8-16); Anion Gap 8 mmol/L (8-16); Aspartate Amino Transferase 38 U/L (14-36); Bilirubin,Total 0.7 mg/dL (0.2-1.3); Blood Urea Nitrogen 19 mg/dL (7-17); Calcium 8.9 mg/dL (8.4-10.2); Carbon Dioxide 28 mmol/L (22-30); Chloride 104 mmol/L (98-107); Chloride 105 mmol/L (98-107); Cholesterol 116 mg/dL (0-200); Estimated Glomerular Filt Rate > 60; Glucose 85 mg/dL (65-110); Glucose 86 mg/dL (65-110); HDL Direct 41 mg/dL; Phosphorus 3.8 mg/dL (2.5-4.5); Potassium 4.4 mmol/L (3.4-5.0); Potassium 4.6 mmol/L (3.4-5.0); Sodium 140 mmol/L (137-145); Triglycerides 44 mg/dL (<150)
[2023-09-25 12:39] LABS: LDL Cholesterol Direct 67 mg/dL
[2023-09-25 12:54] LABS: Creatinine Urine 10.6 mg/dL
[2023-09-25 12:59] LABS: MALB Creatinine Ratio 81.1 mg/g (0-30); Microalbumin Urine Random 8.6 mg/L (0-16.7)
[2023-09-25 13:03] LABS: Hemoglobin A1C 7.9 % (<5.7)
[2023-09-25 13:12] LABS: Vitamin D 25 Hydroxy 27.3 ng/mL
== END 2023-09-25 11:30 | disposition home or self-care (01) ==
PROVIDERS: PCP Emergency Medicine; Referring Provider Nurse Practitioner; Visit Provider Hospitalist
DX: R80.9 Proteinuria, unspecified (principal); E10.65 Type 1 diabetes mellitus with hyperglycemia; I12.9 Hypertensive chronic kidney disease with stage 1 through stage 4 chronic kidney disease, or unspecified chronic kidney disease; N18.2 Chronic kidney disease, stage 2 (mild)
CPT/HCPCS: 36415; 80053; 80061; 80069; 81003; 82043; 82306; 82570; 83036; 84156; 84443; 85025

== ENCOUNTER 2024-01-22 12:03 | Outpatient (CLI) | payer OTHER, SELFPAY ==
[2024-01-22 12:39] LABS: Hematocrit 47.2 % (37.0-47.0); Hemoglobin 15.1 g/dL (12.0-15.0); Mean Corpuscular Hemoglobin 29.2 pg (26-34); Mean Corpuscular Volume 91.1 fl (80-100); Mean Platelet Volume 10.7 fl (7.4-10.4); Platelet Count Result 301 k/mm3 (150-375); Red Blood Count 5.18 M/mm3 (4.2-5.4); Red Cell Distribution Width 14.1 % (11.5-14.5); White Blood Count 9.6 K/mm3 (4.5-10.0)
[2024-01-22 12:43] LABS: Appearance Urine Clear (Clear); Bilirubin Urine Negative (Negative); Blood Urine Negative (Negative); Color Urine Yellow (Yellow); Glucose Urine UA 3+ mg/dL (Negative); Ketones Urine Negative (Negative); Leukocyte Esterase Ur Negative LEU/UL (Negative); Nitrate Urine Negative (Negative); Protein Urine Negative (Negative); Specific Grav Ur 1.021 (1.001-1.035); Urobilinogen Urine 0.2 mg/dL (<2.0)
[2024-01-22 12:45] LABS: Albumin Level 4.3 g/dL (3.5-5.1); Anion Gap 8 mmol/L (4-12); Blood Urea Nitrogen 20 mg/dL (7-17); Calcium 9.1 mg/dL (8.4-10.2); Carbon Dioxide 22 mmol/L (22-30); Chloride 107 mmol/L (98-107); Estimated Glomerular Filt Rate > 60; Glucose 218 mg/dL (65-110); Phosphorus 3.8 mg/dL (2.5-4.5); Potassium 4.2 mmol/L (3.4-5.0); Sodium 137 mmol/L (137-145)
[2024-01-22 12:48] LABS: Total Protein Urine Random 8 mg/dL
[2024-01-22 12:53] LABS: Add Urine Microscopic? NO
[2024-01-22 13:06] LABS: Eosinophils Absolute Manual 0.19 K/mm3 (0.02-0.50); Eosinophils Percent Manual 2 % (0-4); Lymphocytes Absolute Manual 2.49 K/mm3 (1.1-4.5); Lymphocytes Percent Manual 26 % (18-44); Monocytes Absolute Manual 0.38 K/mm3 (0.1-0.90); Monocytes Percent Manual 4 % (3-9); Neutrophils Percent Manual 68 % (46-73); Platelet Estimate Adequate (Adequate)
[2024-01-22 13:07] LABS: Schistocytes None Seen
[2024-01-22 13:41] LABS: Vitamin D 25 Hydroxy 60.8 ng/mL
[2024-01-22 18:31] LABS: Hemoglobin A1C 7.7 % (<5.7)
== END 2024-01-22 12:04 | disposition home or self-care (01) ==
LOC: ANHLAB 12:05
PROVIDERS: PCP Emergency Medicine; Visit Provider Hospitalist
DX: I12.9 Hypertensive chronic kidney disease with stage 1 through stage 4 chronic kidney disease, or unspecified chronic kidney disease (principal); N18.2 Chronic kidney disease, stage 2 (mild); R80.9 Proteinuria, unspecified
CPT/HCPCS: 36415; 80069; 81003; 81050; 82306; 83036; 84156; 85025

== ENCOUNTER 2024-04-04 19:55 | Emergency (ER) | payer OTHER, SELFPAY ==
--- NOTE | ~2024-04-04 | XR_ITS ---
XR ribs LT 2V w CXR 2V Ordering provider: Chula Crockett PA-C History: . left inf rib pain WITH PALPABLE MASS X 5 DAYS . Comparison: January 13, 2022 FINDINGS: BONES: No acute rib fracture. MEDIASTINUM: The cardiac silhouette is not enlarged. Left bipolar pacemaker. LUNGS: No infiltrates, effusions or pneumothorax. OTHER: No free air under the diaphragm. Degenerative changes of the spine. IMPRESSION: 1. No acute osseous abnormality left ribs and chest. 2. No acute cardiopulmonary findings. Reviewed, dictated and finalized at location A.
--- NOTE | ~2024-04-04 | CT_ITS ---
CT abdomen pelvis w con Ordering provider: Chula Crockett PA-C History: 53 years Female with . LUQ pain . Comparison: December 04, 2010 Technique: CT abdomen and pelvis with IV and without oral contrast. Automated exposure control and it erative reconstruction technique were employed. The dose-length product was 292.14 mGy-cm. 100 ML Omn ipaque 350 was given IV. Findings: VISUALIZED LOWER CHEST: Normal. 4 mm nodule in the right lower lobe. Trace of pericardial effusion. UPPER ABDOMINAL ORGANS: Liver: Fat infiltration Gallbladder: Normal. Spleen: Normal. Stomach/duodenum: Thickened wall and stomach Pancreas: Slightly dilated pancreatic duct. Follow-up advised. Adrenals: Slightly prominent medial limb of the left adrenal gland. Kidneys: Tiny hyperdensities are seen bilaterally which may indicate vascular calcification versus st ones versus early contrast excretion. PELVIC ORGANS: The bladder is normal. BOWEL AND MESENTERY: Colon: No evidence of diverticulitis. Fecal material is loaded in the colon. Normal appendix. Small Bowel: Normal. No obstruction. Peritoneum/mesentery: No free air or free fluid. No mesenteric lymphadenopathy. RETROPERITONEUM: Mild atheromatous disease of the abdominal aorta. Narrowing of the right common analisa ac artery. Of about 60-70%.. No retroperitoneal lymphadenopathy. MUSCULOSKELETAL: Superficial soft tissues: The superficial soft tissues are normal. Bones: Normal spine. IMPRESSION: 1. Nodule in the right lower lobe measuring 4 mm. 12 month follow-up CT is advised. 2. Bilateral renal small hyperdensities which may indicate tiny stones versus early excretion of the contrast versus vascular calcifications. Follow-up advised. 3. Constipation. 4. Fat infiltration. Reviewed, dictated and finalized at location A. IMPRESSION: 1. Nodule in the right lower lobe measuring 4 mm. 12 month follow-up CT is adv ised. 2. Bilateral renal small hyperdensities which may indicate tiny stones versus early excretion of the contrast versus vascular calcifications. Follow-up advis ed. 3. Constipation. 4. Fat infiltration.
--- NOTE | ~2024-04-04 | CT_ITS ---
Clinical Indication: Rib pain, elevated d-dimer CT Scan of the Chest with Contrast: Technique: Contiguous sections were acquired throughout the chest after intravenous administration of 100 cc of Omnipaque 350. Dose reduction technique was used on this scan by utilizing automated expos ure control and iterative reconstruction technique. The dose-length product (DLP) was 253.81 mGy-cm. COMPARISON: 09/30/2021 Findings: There is no evidence of any significant mediastinal, hilar or axillary lymphadenopathy. There is no f illing defect in the pulmonary arterial tree to suggest pulmonary embolus. There is no evidence of ao rtic dissection or aneurysm. There is no evidence of pleural or pericardial effusion. There are mild dependent atelectatic changes. Stable 5 mm right lower lobe pulmonary nodule (axial im age 65). Images through the upper abdomen reveal no abnormalities. Impression: No evidence of pulmonary embolus, aortic dissection, or aortic aneurysm. Stable 5 mm right lower lobe pulmonary nodule. Reviewed, dictated and finalized at location . Impression: No evidence of pulmonary embolus, aortic dissection, or aortic aneurysm. Stable 5 mm right lower lobe pulmonary nodule.
[2024-04-04 20:00] VITALS: BP 165/55; PULSE 74; RESP 16; TEMP 36.6; O2SAT 100
[2024-04-04 20:15] LABS: Basophils Absolute Auto 0.1 K/mm3 (0.0-0.1); Basophils Percent Auto 0.9 % (0.2-1.2); Eosinophils Absolute Auto 0.4 K/mm3 (0-0.3); Eosinophils Percent Auto 4.6 % (0-4.4); Hematocrit 45.9 % (37.0-47.0); Hemoglobin 15.2 g/dL (12.0-15.0); Immature Granulocyte Absolute 0.03 K/mm3 (0.00-0.031); Immature Granulocyte Percent A 0.3 % (0-0.5); Lymphocytes Percent Auto 35.3 % (18.3-44.2); Mean Corpuscular HGB Conc 33.1 g/dl (32-36); Mean Corpuscular Hemoglobin 29.8 pg (26-34); Monocytes Absolute Auto 0.7 K/mm3 (0.1-0.6); Monocytes Percent Auto 7.4 % (2.6-8.5); Neutrophils Absolute Auto 4.5 K/mm3 (1.3-6.7); Neutrophils Percent Auto 51.5 % (45.5-73.1); Platelet Count Result 267 k/mm3 (150-375); Red Cell Distribution Width 13.7 % (11.5-14.5); White Blood Count 8.8 K/mm3 (4.5-10.0)
[2024-04-04 20:23] LABS: Appearance Urine Clear (Clear); Bilirubin Urine Negative (Negative); Blood Urine Negative (Negative); Color Urine Yellow (Yellow); Glucose Urine UA 3+ mg/dL (Negative); Ketones Urine Negative (Negative); Leukocyte Esterase Ur Negative LEU/UL (Negative); Nitrate Urine Negative (Negative); Protein Urine Negative (Negative); Specific Grav Ur 1.007 (1.001-1.035); Urobilinogen Urine 0.2 mg/dL (<2.0)
[2024-04-04 20:24] LABS: Add Urine Microscopic? NO
[2024-04-04 20:25] LABS: Alanine Aminotransferase 24 U/L (6-35); Albumin Level 4.2 g/dL (3.5-5.1); Alkaline Phosphatase 119 U/L (38-126); Anion Gap 7 mmol/L (4-12); Aspartate Amino Transferase 32 U/L (14-36); Bilirubin,Total 0.4 mg/dL (0.2-1.3); Blood Urea Nitrogen 19 mg/dL (7-17); Calcium 9.1 mg/dL (8.4-10.2); Carbon Dioxide 29 mmol/L (22-30); Chloride 100 mmol/L (98-107); Estimated CRCL calculation 62 ml/min; Estimated Glomerular Filt Rate > 60; Glucose 186 mg/dL (65-110); Lipase 257 U/L (23-300); Potassium 4.6 mmol/L (3.4-5.0); Sodium 136 mmol/L (137-145)
--- NOTE | 2024-04-04 21:42 | ECG_ITS ---
Test Date: 2024-04-04 22:18:36 Measurements Intervals [place] Rate: 52 P: 53 CO: 171 QRS: 7 QRSD: 77 T: 24 QT: 437 QTc: 408 Interpretive Statements SINUS BRADYCARDIA BASELINE ARTIFACT- I, II, AVR, AVL BORDERLINE ECG No previous ECG available for comparison Electronically Signed On 04-05-2024 06:01:54 CDT by Adam Hameed D.O.
--- NOTE | 2024-04-04 21:43 | ED.ABDPAIN ---
HPI - Abdominal Pain General Chief Complaint: Abdominal Pain Stated Complaint: lump in rib area Time Seen by Provider: 04/04/24 21:37 History of Present Illness HPI narrative: 53-year-old female with history of CHF, type 1 diabetes, COPD, ICD in place presents to the emergency department for left upper quadrant abdominal pain/left lower rib pain for the past 5 days. States the pain wraps to the left side of her back. Patient denies any injury trauma to the area. States it is worse with movement. Denies chest pain or shortness of breath, cough, vomiting or diarrhea. She is reporting some nausea and congestion. Last bowel movement was yesterday normal. Related Data Home Medications Medication Instructions Recorded Confirmed calcium carbonate 1,200 mg PO DAILY 10/01/21 01/13/22 cholecalciferol (vitamin D3) 125 125 mcg PO DAILY 10/01/21 01/13/22 mcg (5,000 unit) tablet (Vitamin D3) insulin glargine 100 unit/mL 30 unit subcut QAM 10/01/21 12/02/21 subcutaneous solution (Lantus U-100 Insulin) insulin glulisine U-100 100 1 sliding scale dose subcut 10/01/21 01/13/22 unit/mL subcutaneous solution USEASDIRECTD (Apidra U-100 Insulin) furosemide 40 mg tablet 20 mg PO DAILY 12/02/21 01/13/22 sacubitril 97 mg-valsartan 103 mg 1 tablet PO BID 12/02/21 01/13/22 tablet (Entresto) Allergies Allergy/AdvReac Type Severity Reaction Status Date / Time latex Allergy Hives Verified 04/04/24 20:05 Review of Systems Review of Systems: All systems reviewed & are unremarkable except as noted in HPI and below PMFSH Past Medical History Medical History Diabetes mellitus Diabetic nephropathy associated with type 1 diabetes mellitus History of COVID-19 Hyperlipidemia Nonischemic cardiomyopathy Tobacco use disorder, continuous Vitamin D deficiency Surgical History Surgical History History of total abdominal hysterectomy and bilateral salpingo-oophorectomy Due to endometriosis and uterine fibroids Family History Family History Mother Osteoarthritis In good health Father In good health Social History Social History Social History: The patient lives at home with her son, grandson and granddaughter. She has 2 other adult children. 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 She has smoked 1 pack of cigarettes per day since the age of 15. She reports occasional alcohol use in moderation. She denies listed substance use. Smoking packs per day: 1 Smoking cigarettes per day: 20.0 Years smoked: 35 Smoking pack-years: 35.00 Smoking status: Former smoker Tobacco type: cigarettes Alcohol intake: never Substance use: never Spiritual care concerns: No Exam Narrative: GENERAL: Well-appearing, well-nourished, and in no acute distress. HEAD: Normocephalic, atraumatic. EYES: PERRLA and EOMI. ENT: Nares clear, no rhinorrhea or epistaxis. Mucous membranes moist. NECK: Supple. CHEST: Clear to auscultation. No respiratory distress. Tenderness to the inferior anterolateral left ribs. No overlying skin changes, crepitus, step-offs or deformities HEART: Regular rate and rhythm. No murmur heard. Normal peripheral pulses. ABDOMEN: Normal active bowel sounds. Abdomen soft with tenderness in the LUQ. No rebound, guarding or rigidity. No CVA tendeness EXTREMITIES: Normal range of motion. No edema. SKIN: Warm, dry, no rash. NEURO: No focal deficits. Alert and oriented x3 Course Vital Signs Vital signs: Vital Signs Temperature 97.9 F 04/04/24 20:00 Pulse Rate 74 04/04/24 20:00 Respiratory Rate 16 04/04/24 20:00 Blood Pressure 165/55 H 04/04/24 20:00 Pulse Oximetry 100 04/04/24 20:00 Oxygen Delivery
[2024-04-04 22:06] LABS: Pregnancy On Board Control Positive; Urine Pregnancy Test Negative
[2024-04-04 22:14] LABS: Lactic Acid Reflex 0.8 mmol/L (0.7-2.0)
[2024-04-04 22:15] LABS: Ethanol < 10 mg/dL (<10)
[2024-04-04 22:16] LABS: Amphetamine Screen Urine Negative (Negative); Barbiturate Screen Urine Negative (Negative); Benzodiazepines Screen Urine Negative (Negative); Cannabinoid Screen Urine Negative (Negative); Cocaine Screen Urine Negative (Negative); Methadone Screen Urine Negative (Negative); Opiate Screen Urine Negative (Negative); Phencyclidine Screen Urine Negative (Negative)
[2024-04-04] MEDS: ONDANSETRON INJ 4 MG/2 ML VIAL IV PUSH (22:18)
[2024-04-04 22:37] LABS: Troponin I < 0.012 ng/mL (0.000-0.034)
[2024-04-04 22:40] LABS: Influenza A QL RT-PCR Negative (Negative); Influenza B QL RT-PCR Negative (Negative); SARS-CoV-2 RNA PCR Negative (Negative)
[2024-04-04 22:58] LABS: D Dimer 0.53 ug/mL (<0.48)
[2024-04-04] MEDS: SODIUM CHLORIDE 0.9% IV 1,000 ML 999 ML IV CONT (23:21)
[2024-04-05 00:57] VITALS: BP 168/84; PULSE 70; RESP 14; O2SAT 100
[2024-04-05] MEDS: CYCLOBENZAPRINE HCL 10 MG TABLET PO (00:57)
[2024-04-05] MEDS: ACETAMINOPHEN 500 MG TABLET 1000 MG PO (00:57)
[2024-04-05] MEDS: LIDOCAINE 5% PATCH 1 PATCH TRANSDERM (00:57)
== END 2024-04-05 00:58 | disposition home or self-care (01) ==
PROVIDERS: Emergency Medicine; Emergency Provider Physician Assistant; PCP Emergency Medicine
DX: R10.12 Left upper quadrant pain (principal); R07.81 Pleurodynia; R91.1 Solitary pulmonary nodule; K76.0 Fatty (change of) liver, not elsewhere classified; Z20.822 Contact with and (suspected) exposure to COVID-19; E10.21 Type 1 diabetes mellitus with diabetic nephropathy; I50.9 Heart failure, unspecified; I42.8 Other cardiomyopathies; J44.9 Chronic obstructive pulmonary disease, unspecified; E78.5 Hyperlipidemia, unspecified; E55.9 Vitamin D deficiency, unspecified; F17.200 Nicotine dependence, unspecified, uncomplicated; Z95.810 Presence of automatic (implantable) cardiac defibrillator; Z86.16 Personal history of COVID-19; Z90.710 Acquired absence of both cervix and uterus; Z90.79 Acquired absence of other genital organ(s); Z90.722 Acquired absence of ovaries, bilateral; R00.1 Bradycardia, unspecified; Z79.4 Long term (current) use of insulin; Z79.899 Other long term (current) drug therapy; Z79.82 Long term (current) use of aspirin; K59.00 Constipation, unspecified; R93.422 Abnormal radiologic findings on diagnostic imaging of left kidney; R93.421 Abnormal radiologic findings on diagnostic imaging of right kidney
CPT/HCPCS: 36415; 71046; 71100; 71275; 74177; 80053; 80307; 81003; 81025; 83605; 83690; 84484; 85025; 85380; 87636; 93005; 96361; 96374; 99284; A9270; J2405; J7030; Q9967

== ENCOUNTER 2024-04-08 11:13 | Outpatient (CLI) | payer OTHER, SELFPAY ==
[2024-04-08 11:56] LABS: Basophils Absolute Auto 0.1 K/mm3 (0.0-0.1); Basophils Percent Auto 0.6 % (0.2-1.2); Eosinophils Absolute Auto 0.2 K/mm3 (0-0.3); Eosinophils Percent Auto 2.1 % (0-4.4); Hemoglobin 16.7 g/dL (12.0-15.0); Immature Granulocyte Absolute 0.03 K/mm3 (0.00-0.031); Immature Granulocyte Percent A 0.3 % (0-0.5); Lymphocytes Absolute Auto 2.07 K/mm3 (0.9-3.2); Lymphocytes Percent Auto 18.5 % (18.3-44.2); Mean Corpuscular HGB Conc 32.7 g/dl (32-36); Mean Corpuscular Hemoglobin 29.7 pg (26-34); Mean Corpuscular Volume 90.6 fl (80-100); Monocytes Absolute Auto 0.6 K/mm3 (0.1-0.6); Monocytes Percent Auto 5.4 % (2.6-8.5); Neutrophils Absolute Auto 8.2 K/mm3 (1.3-6.7); Neutrophils Percent Auto 73.1 % (45.5-73.1); Platelet Count Result 299 k/mm3 (150-375); Red Blood Count 5.63 M/mm3 (4.2-5.4); Red Cell Distribution Width 13.9 % (11.5-14.5); White Blood Count 11.2 K/mm3 (4.5-10.0)
[2024-04-08 11:58] LABS: Add Urine Microscopic? NO; Appearance Urine Clear (Clear); Bilirubin Urine Negative (Negative); Blood Urine Negative (Negative); Color Urine Yellow (Yellow); Glucose Urine UA 3+ mg/dL (Negative); Ketones Urine Negative (Negative); Leukocyte Esterase Ur Negative LEU/UL (Negative); Nitrate Urine Negative (Negative); Protein Urine Negative (Negative); Specific Grav Ur 1.005 (1.001-1.035); Urobilinogen Urine 0.2 mg/dL (<2.0); pH Urine 5.5 (5.0-9.0)
[2024-04-08 12:02] LABS: Creatinine Urine 7.3 mg/dL; Total Protein Urine Random 11 mg/dL; Ur Ttl Prot Creatinine Ratio 1.51 mg/mg (0-0.20)
[2024-04-08 12:05] LABS: Albumin Level 4.4 g/dL (3.5-5.1); Anion Gap 10 mmol/L (4-12); Blood Urea Nitrogen 16 mg/dL (7-17); Calcium 9.2 mg/dL (8.4-10.2); Carbon Dioxide 28 mmol/L (22-30); Chloride 99 mmol/L (98-107); Estimated Glomerular Filt Rate > 60; Glucose 162 mg/dL (65-110); Phosphorus 3.8 mg/dL (2.5-4.5); Potassium 4.6 mmol/L (3.4-5.0); Sodium 137 mmol/L (137-145)
[2024-04-08 12:37] LABS: Hemoglobin A1C 8.3 % (<5.7)
[2024-04-08 12:45] LABS: Vitamin D 25 Hydroxy 63.1 ng/mL
== END 2024-04-08 11:14 | disposition home or self-care (01) ==
LOC: ANHLAB 11:16
PROVIDERS: PCP Emergency Medicine; Visit Provider Hospitalist
DX: I12.9 Hypertensive chronic kidney disease with stage 1 through stage 4 chronic kidney disease, or unspecified chronic kidney disease (principal); N18.2 Chronic kidney disease, stage 2 (mild); R80.9 Proteinuria, unspecified
CPT/HCPCS: 36415; 80069; 81003; 82306; 82570; 83036; 84156; 85025

== ENCOUNTER 2024-10-19 18:04 | Emergency (ER) | payer OTHER, SELFPAY ==
--- NOTE | 2024-10-19 19:21 | ED_ITS ---
HPI - URI/Sore Throat General Chief Complaint: Upper Respiratory Infection Stated Complaint: Headache/Sinus/Nausea Source: patient and RN notes reviewed Mode of arrival: ambulatory Limitations: no limitations History of Present Illness HPI Narrative: 53 y/o female with hx CHF, COPD, DM presented for c/o nasal congestion and drainage, ear pressure, headache, mild cough and pain to neck glands. Onset almost 2 weeks. headache is frontal. Cough is nonproductive. Denies sob, wheezing, vomiting or fever. MD elicited complaint: cough Related Data Home Medications ?Medication ?Instructions ?Recorded ?Confirmed ?Last Taken ?Type calcium carbonate 1,200 mg PO DAILY 10/01/21 01/13/22 01/12/22 19:00 History cholecalciferol (vitamin D3) 125 125 mcg PO DAILY 10/01/21 01/13/22 01/12/22 19:00 History mcg (5,000 unit) tablet (Vitamin D3) insulin glargine 100 unit/mL 30 unit subcut QAM 10/01/21 12/02/21 01/12/22 09:00 History subcutaneous solution (Lantus U-100 Insulin) insulin glulisine U-100 100 1 sliding scale dose subcut 10/01/21 01/13/22 01/12/22 19:00 History unit/mL subcutaneous solution USEASDIRECTD 22 (Apidra U-100 Insulin) furosemide 40 mg tablet 20 mg PO DAILY 12/02/21 01/13/22 01/12/22 19:00 History sacubitril 97 mg-valsartan 103 mg 1 tablet PO BID 12/02/21 01/13/22 01/12/22 19:00 History tablet (Entresto) Allergies Allergy/AdvReac Type Severity Reaction Status Date / Time latex Allergy Hives Verified 04/04/24 20:05 Review of Systems Review of Systems: per HPI [facility] Past Medical History Medical History History of COVID-19 Nonischemic cardiomyopathy Hyperlipidemia Vitamin D deficiency Diabetic nephropathy associated with type 1 diabetes mellitus Tobacco use disorder, continuous Diabetes mellitus Surgical History Surgical History History of total abdominal hysterectomy and bilateral salpingo-oophorectomy Due to endometriosis and uterine fibroids Family History Family History Mother Osteoarthritis In good health Father In good health Social History Social History Social History: The patient lives at home with her son, grandson and granddaughter. She has 2 other adult children. 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 She has smoked 1 pack of cigarettes per day since the age of 15. She reports occasional alcohol use in moderation. She denies listed substance use. Smoking packs per day: 1 Smoking cigarettes per day: 20.0 Years smoked: 35 Smoking pack-years: 35.00 Smoking status: Former smoker Tobacco type: cigarettes Alcohol intake: never Substance use: never Spiritual care concerns: No Exam Narrative: GENERAL: Ill-appearing, nontoxic no acute distress. EYES: PERRLA, conjunctivae clear ENT: Mucous membranes moist. TM pearly espinal with dull light reflex bilaterally; no tragal tenderness. Oropharynx erythematous without lesions or exudate, no drooling, no hoarseness, no trismus, uvula midline. No tripod positioning, muffled voice, soft palate or pharyngeal wall bulging NECK: Supple. No lymphadenopathy CHEST: Clear to auscultation, breath sounds equal. No wheezing, rhonchi, rales, or stridor. No respiratory distress, speaks in full sentences. HEART: Regular rate and rhythm. No murmur heard. SKIN: Warm, dry, no rash. NEURO: Alert and oriented x3. PSYCH: Normal mood and affect Course Course Emergency Course: Patient is aware of diagnosis, understands and agrees to treatment plan. Anticipatory guidance given. Patient agrees to follow-up as directed and is aware of reasons to seek care at the emergency department. Portions of this record may have been created with voice recognition software Level of Care: Express Care Visit Vital Signs Vital signs: reviewed MDM - URI/Sore Throat MDM Narrative Medical decision making narrative: Discussed physical exam findings Consistent with sinusitis. Advised supportive measures and signs/symptoms to go to the ER. Pt is appropriate for outpt treatment and f/u. Differential Diagnosis Differential diagnosis: Likely upper respiratory infection, otitis media, sinusitis, viral infection, bronchitis, influenza and pharyngitis Discharge Plan Discharge Clinical Impression: Sinusitis Patient Disposition: Home, Self-Care Condition: Stable Instructions: Antibiotic Form, Rhinosinusitis (ED) Additional Instructions: Recommendations Flonase spray and Zyrtec (or Claritin/Loretta) over the counter Cough syrup may cause drowsiness; avoid driving or take it at night time. Tylenol 1000mg every 8 hours as needed for pain Symptomatic treatment includes: rest, fluids, and increase humidity of the air at home. Follow up with your primary care provider in 1 week. Go to the ER for worsening symptoms or concerns. Patient Language: Belarusian Prescriptions: New amoxicillin-pot clavulanate 875-125 mg tablet 1 tablet PO Q12H 7 Days Qty: 14 0RF No Action insulin glargine [Lantus U-100 Insulin] 100 unit/mL Solution 30 unit SUBCUT QAM calcium carbonate 600 mg calcium (1,500 mg) Tablet 1,200 mg PO DAILY Apidra U-100 Insulin 100 unit/mL Solution 1 sliding scale dose SUBCUT USEASDIRECTD Rx Instructions: 3-5 units depending on physical activity and carb intake. cholecalciferol (vitamin D3) [Vitamin D3] 125 mcg (5,000 unit) Tablet 125 mcg PO DAILY spironolactone 25 mg Tablet 25 mg PO QAM Qty: 30 0RF aspirin [Children's Aspirin] 81 mg Tablet,Chewable 81 mg PO DAILY@0800 Qty: 30 0RF Entresto 97-103 mg tablet 1 tablet PO BID furosemide 40 mg tablet 20 mg PO DAILY carvedilol 12.5 mg tablet 12.5 mg PO BID Qty: 60 5RF Rx Instructions: must administer with a meal/food atorvastatin 40 mg tablet 40 mg PO HS Qty: 90 1RF cyclobenzaprine 10 mg tablet 10 mg PO TID PRN (Reason: muscle spasm) Qty: 14 0RF lidocaine 5 % adhesive patch,medicated 1 patch topical DAILY Qty: 15 0RF Rx Instructions: leave on most painful area for up to 12 hrs. do not use more than 1 patch in a 24-hour period. docusate sodium 100 mg capsule 100 mg PO BID Qty: 30 0RF polyethylene glycol 3350 17 gram/dose powder 17 g PO DAILY Qty: 119 0RF Follow-up/Referrals: German Feliciano MD [Primary Care Provider] - Time of Disposition: 19:29
[2024-10-19 19:25] VITALS: BP 167/97; PULSE 59; RESP 18; TEMP 36.4; O2SAT 100
== END 2024-10-19 19:35 | disposition home or self-care (01) ==
PROVIDERS: Emergency Provider Nurse Practitioner Family; PCP Emergency Medicine
DX: J32.9 Chronic sinusitis, unspecified (principal); I42.8 Other cardiomyopathies; J44.9 Chronic obstructive pulmonary disease, unspecified; I50.9 Heart failure, unspecified; E78.5 Hyperlipidemia, unspecified; E10.21 Type 1 diabetes mellitus with diabetic nephropathy; Z79.4 Long term (current) use of insulin; E55.9 Vitamin D deficiency, unspecified; Z86.16 Personal history of COVID-19
CPT/HCPCS: 99213; G0463

== ENCOUNTER 2025-01-20 12:02 | Outpatient (CLI) | payer OTHER, SELFPAY ==
--- OUTSIDE RECORDS SUMMARY | 2025-01-20 12:37 | XMS_ITS | Clinical Summary ---
Author Organization [facility] Address [address] [place] [address] Care Team Providers Care Try On Baster Name Role Phone German Feliciano MD Primary Care Provider [phone] Source Comments [facility],non-owned Affiliates and Associated Physician Practices is amultiple site organization consisting of ambulatory clinics and hospital sitesin [place], [place], [place] and [place]. This disclosure is being madepursuant to the Care Everywhere program and may not contain all information available regarding this patient. Last updated 18.[facility] Allergies Active Allergy Reactions Criticality Noted Date Comments Latex Rash Medium 10/27/2021 Medications * Be aware that medications may not be up to date on this document. Alwaysverify current medications with the patient. atorvastatin (Lipitor) 40 MG tablet Take 1 (one) tablet by mouth at bedtime 04/18/20 23 Active carvedilol (Coreg) 6.25 MG tablet TAKE 4 TABLETS BY MOUTH EVERY 12 HOURS 01/05/20 22 Active Continuous Blood Gluc Sensor (Dexcom G7 Sensor) MISC Use 1 device as instructed continuous 12/27/19 23 Active dapagliflozin propanediol (Farxiga) 5 MG tablet Take 1 (one) tablet by mouth once daily 05/30/20 23 Active ezetimibe (Zetia) 10 MG tablet Take 1 (one) tablet by mouth once daily 30 tablet 11 07/15/20 22 Active furosemide (Lasix) 40 MG tablet Take 1 (one) tablet by mouth once daily Active Insulin Disposable Pump (Omnipod DASH Pods, Gen 4,) MISC INJECT 1 DEVICE UNDER THE SKIN EVERY THIRD DAY 03/24/20 23 Active insulin glargine (Lantus SoloStar) pen Take 24 units in the am and 18 units in pm e10.65 11/04/19 23 Active Insulin Lispro w/ Trans Port 100 UNIT/ML SOPN INJECT 6 TO 8 UNITS SUBCUTANEOUSLY 15 MINUTES PRIOR TO MEALS WITH CORRECTION. TOTAL DAILY DOSE OF 30 UNITS. 06/08/20 23 Active sacubitril-vals janine (Entresto) 97-103 MG tablet Take 1 (one) tablet by mouth 2 times daily 05/09/20 23 Active Aspirin 81 MG CAPS Active cilostazol (Pletal) 50 MG tablet Take 1 (one) tablet by mouth 2 times daily 60 tablet 3 06/08/20 23 Active amoxicillin (Amoxil) 500 MG capsule TAKE 1 CAPSULE BY MOUTH TWICE DAILY FOR 10 DAYS 11/05/19 23 Active Blood Glucose Monitoring Suppl (Ntirety Verio Flex System) w/Device KIT as directed 07/26/20 22 Active fluticasone propionate (Flonase) 50 MCG/ACT nasal spray USE 1 SPRAY(S) IN EACH NOSTRIL TWICE DAILY 07/11/20 22 Active Ntirety Verio test strip USE DIRECTED THREE TIMES DAILY 05/14/20 23 Active TRUEplus 5-Bevel Pen [place] 31G X 8 MM needle INJECT INSULIN UP TO 5 TIMES DAILY 09/02/20 22 Active ONETOUCH DELICA PLUS 30G FINE LANCETS 10/30/19 23 Active Farxiga 10 MG tablet Take 1 (one) tablet by mouth every morning 06/19/20 23 Active furosemide (Lasix) 20 MG tablet Take 1 (one) tablet by mouth once daily 06/19/20 23 Active Social History Tobacco Use Types Packs/Day Years Used Date Smoking Tobacco: Former Cigarettes Smokeless Tobacco: Never Tobacco Cessation:Counseling Given: No Comments No Sex and Gender Information Value Date Recorded Sex Assigned at Not on file Legal Sex Female 12:26 PM CDT Gender Identity Not on file Sexual Orientation Not on file Last Filed Vital Signs Vital Sign Reading Time Taken Comments Blood Pressure 130/79 06/22/2023 8:56 AM CDT Pulse 70 06/22/2023 8:56 AM CDT Temperature 36.6 C (97.8 F) 06/22/2023 8:56 AM CDT Respiratory Rate 18 06/08/2023 11:45 AM CDT Oxygen Saturation 95% 06/22/2023 8:56 AM CDT Inhaled Oxygen Concentration - - Weight 62.6 kg (138 lb) 06/22/2023 8:56 AM CDT Height 171.5 cm (5' 7.5 ) 06/22/2023 8:56 AM CDT Body Mass Index 21.29 06/22/2023 8:56 AM CDT Plan of Treatment Health Maintenance Due Date Last Done Comments COLOGUARD (AGES 45-75) - COL ON CA SCREENING 1970 COLON MONITORING 1970 COLONOSCOPY - COLON CA SCREENING 1970 CT COLONOGRAPHY - COLON CA SCREENING 1970 Colorectal Cancer Screening 1970 FIT - COLON CA SCREENING 1970 FLEX SIG - COLON CA SCREENING 1970 MAMMOGRAM 1970 PAP SMEAR 1970 HIV SCREENING 1985 HEPATITIS C SCREENING 10/25/1988 DTAP/TDAP/TD VACCINES (1 - Tdap) 1989 HEPATITIS B VACCINE (1 of 3 - 19+ 3-dose series) 1989 PNEUMOCOCCAL VACCINE 50+ (1 of 1 - PCV) 2020 ZOSTER VACCINE (1 of 2) 2020 COVID-19 VACCINE (1 - 2023-2 5 season) 2024 DEPRESSION SCREENING 09/18/2024 INFLUENZA VACCINE (Season Ended) 2025 HIB VACCINE Aged Out No longer eligi ble based on patient's age to complete this topic HPV VACCINE Aged Out No longer eligi ble based on patient's age to complete this topic MENINGOCOCCAL (Group B) VACC INE SHARED DECISION-MAKING Aged Out No longer eligibl e based on patient's age to complete this topic MENINGOCOCCAL GROUPS A/C/Y/W VACCINE Aged Out No longer eligible b ased on patient's age to complete this topic Insurance [facility] Care Teams Try On Baster Relationship Specialty Start Date End Date German Feliciano MD [phone] [id number] PCP - General Family Medicine 06/08/23
--- OUTSIDE RECORDS SUMMARY | 2025-01-20 12:37 | XMS_ITS | Referral Summary ---
Author Organization [facility] [place] [address] [place] [address] Address [address] [facility] [address] [place] [address] Care Team Providers [employer] Principal Name Role Phone German Feliciano MD Primary Care Provider [phone] No, Physician Unavailable Encounters Date Type Department Care Team Description 11/22/2024 3:00 PM ANIMAL CARE SUPERVISOR Office Visit [facility] Cardiology [address] [facility] [address] [place] [address] Vida Wagner NP Nonischemic cardiomyopathy (HCC); Automatic implantable cardiac defibrillator in situ; Coronary artery disease involving [place] coronary artery of [place] heart without angina pectoris; 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 (HCC); Lipid screening 11/18/2024 3:00 PM ANIMAL CARE SUPERVISOR Office Visit [facility] Diabetes Endocrine Care at [address] [place] [address] Heidy Pena NP Type 1 diabetes mellitus with hyperglycemia (HCC) (Primary Dx); Type 1 diabetes mellitus with hypoglycemia and without coma (HCC); 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 (HCC); CKD stage 2 due to type 1 diabetes mellitus (HCC); Omnipod Dash Insulin pump in place; SwypeShield continuous glucose monitoring device from Last 3 Months Allergies Active Allergy Reactions Criticality Noted Date Comments Latex Rash Medium 10/27/2021 Medications aspirin 81 mg chewable tablet CHEW AND SWALLOW 1 TABLET BY MOUTH ONCE DAILY AT 8 IN THE MORNING 10/05/19 22 Active fluticasone propionate (FLONASE) 50 mcg/actuation nasal spray as needed 07/11/20 22 Active OneTouch Verio test strips stripIndications:T ype 1 diabetes mellitus with hyperglycemia (HCC) USE DIRECTED THREE TIMES DAILY 07/26/20 Active OneTouch Verio Flex meter miscIndications:Ty pe 1 diabetes mellitus with hyperglycemia (HCC) as directed 07/26/20 Active OneTouch Delica Plus Lancet 30 gauge miscIndications:Ty pe 1 diabetes mellitus with hyperglycemia (HCC) USE 1 STRIP TO CHECK GLUCOSE THREE TIMES DAILY 07/26/20 Active TRUEplus Pen Needle 31 gauge x 01/31 needleIndications: Type 1 diabetes mellitus with hyperglycemia (HCC) INJECT INSULIN UP TO 5 TIMES DAILY 09/02/20 22 Active LANTUS 100 unit/mL (3 mL) pen for injectionIndicatio ns:Type 1 diabetes mellitus with hyperglycemia (HCC) Take 24 units in the am and 18 units in pm e10.65 15 mL 5 11/04/19 23 Active Farxiga 10 mg tablet Take 1 tablet (10 mg total) by mouth every morning 06/19/20 23 Active ergocalciferol (VITAMIN D) 50,000 unit capsule Take 1 capsule (50,000 Units total) by mouth once a week Active insulin lispro (HumaLOG, ADMELOG) 100 unit/mL pen for injectionIndicatio ns:type 1 diabetes mellitus Inject 6-8 units prior to meal 3x/day with correction. or use to fill omnipod insulin pump. Total daily dose- 100 units. E110.65 90 mL 3 10/16/19 24 Active sacubitriL-valsart an (Entresto) 97-103 mg tabletIndications: Cardiomyopathy, dilated (HCC),Chronic combined systolic and diastolic CHF (congestive heart failure) (HCC) Take 1 tablet by mouth 2 (two) times a day 180 tablet 3 11/08/19 24 Active insulin pump cart,cont inf,BT (Omnipod Dash Pods, Gen 4,) cartridge INJECT 1 DEVICE UNDER THE SKIN EVERY THIRD DAY 30 each 03/13/20 24 Active insulin regular human 4 unit/8 unit/ 12 unit (60) cartridge, w/inhalation deviceIndications: type 1 diabetes mellitus Inhale 4-16 Units 3 (three) times a day before meals And additional units as needed for glucose control. 48 units daily. Needs the 4,8,12 cartridge box [facility] [address]-81. E10.9 30 day supply 180 each 11 11/19/19 25 Active carvediloL (COREG) 6.25 mg tabletIndications: Nonischemic cardiomyopathy (HCC) Take 1 tablet (6.25 mg total) by mouth 2 (two) times a day with meals 180 tablet 3 11/23/19 25 026 Active furosemide (LASIX) 20 mg tabletIndications: Chronic combined systolic and diastolic CHF (congestive heart failure) (HCC) Take 1 tablet (20 mg total) by mouth daily 90 tablet 3 11/27/19 25 Active atorvastatin (LIPITOR) 40 mg tabletIndications: Coronary artery disease involving [place] coronary artery of [place] heart without angina pectoris,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 (HCC) Take 1 tablet (40 mg total) by mouth nightly at bedtime. 90 tablet 3 11/29/19 25 Active ezetimibe (ZETIA) 10 mg tabletIndications: Coronary artery disease involving [place] coronary artery of [place] heart without angina pectoris,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 (HCC) Take 1 tablet (10 mg total) by mouth daily 90 tablet 3 11/29/19 25 Active Dexcom G7 Sensor device USE DEVICE CONTINUOUSLY FOR BLOOD SUGAR MONITORING. CHANGE EVERY 10 DAYS. 10 each 12/04/19 Active Active Problems Problem Noted Date Diagnosed Date Dexcom continuous glucose monitoring device 11/2024 Assessment & Plan (11/18/2024 4:24 PM ANIMAL CARE SUPERVISOR): Continuous glucose monitor (cgm) applied from 11/05/2024 to 11/18/2024 This device was placed for monitor and treatment of blood sugar. Interpretation of data- average glucose 189. 50% time in range. 1% hypoglycemia. 49% hyperglycemia. GMI is 7.8% Omnipod Dash Insulin pump in place 12/26/2022 Assessment & Plan (11/18/2024 4:23 PM ANIMAL CARE SUPERVISOR): This is a chronic condition which is worsening and not at goal. Download from 11/05/2019 5-11/18/24 Type of insulin pump- Omnipod Dash. Basal changed to 0000-1.2, 1100-0.8, 1530-1.15 units/hr IC -12.5 ISF -45 Active insulin time 4hrs. TARGET GLUCOSE -110 From previous download Avg Total daily insulin-42 units Avg daily basal- 26 units (62%) Avg daily bolus - 16 units (38%) Interpretation: Average blood sugars 225. 17% time in range. 2% hypoglycemia. 81% hyperglycemia . Assessment & Plan (07/08/2024 6:08 PM CDT): This is a chronic condition which is worsening and not at goal. Unable to download. She was not connected to [employer] Will upgrade to Omnipod 0 P 5. Start a pack provided in office. message sent to Ewelina from [employer] to set up training Type of insulin pump- Omnipod Dash. Adjustments made. Pump settings : Basal changed to 0000-1.2, 1100-0.8, 1530-1.15 units/hr IC -12.5 ISF -45 Active insulin time 4hrs. TARGET GLUCOSE -110 From previous download Avg Total daily insulin-39 units Avg daily basal- 23 units (59%) Avg daily bolus - 16 units (41%) . Assessment & Plan (10/17/2023 7:19 AM ANIMAL CARE SUPERVISOR): This is a chronic condition which is worsening and not at goal. Download reviewed from 10/10/23 to 10/16/23 Type of insulin pump- Omnipod Dash. Adjustments made. Pump settings : Basal changed to 0000-1 , 1100-0.8, 1530-1.15 units/hr IC -12.5 ISF -45 Active insulin time 4hrs. TARGET GLUCOSE -110 Avg Total daily insulin-39 units Avg daily basal- 23 units (59%) Avg daily bolus - 16 units (41%) Reports feeling more comfortable with the omnipod dash. Interpretation- 18% in target range, 78% hyperglycemia. 4% hypoglycemia on this download. . Assessment & Plan (07/10/2023 3:56 PM CDT): This is a chronic condition which is worsening and not at goal. Download reviewed from 06/26/23 to 07/10/23 Type of insulin pump- Omnipod Dash. Adjustments made. Pump settings : Basal -1 IC -12.5 ISF -45 Active insulin time 4hrs. TARGET GLUCOSE -110 Avg Total daily insulin-363 units Avg daily basal- 21 units (58%) Avg daily bolus - 15 units (42%) Reports feeling more comfortable with the omnipod dash. Interpretation- 26% in target range, 74% hyperglycemia. 0 hypoglycemia on this download. . Assessment & Plan (04/03/2023 8:14 PM CDT): This is a chronic condition which is worsening and not at goal. Download reviewed from 03/28/23 to 04/03/23 Type of insulin pump- Omnipod Dash Pump settings : Basal -0.9 IC -15 ISF -40 Active insulin time 4hrs. TARGET GLUCOSE -110 Avg Total daily insulin-33 units Avg daily basal- 21 units (65%) Avg daily bolus - 11 units (35%) Reports feeling more comfortable with the omnipod dash. Interpretation- 22% in target range, 78% hyperglycemia. 0 hypoglycemia on this download. . Assessment & Plan (12/26/2022 3:46 PM CDT): This is a chronic condition which is worsening and not at goal. Download reviewed. Type of insulin pump- Omnipod Dash Pump settings : Basal -0.9 IC -15 ISF -40 Active insulin time 4hrs. TARGET GLUCOSE -110 Avg Total daily insulin-23 units Avg daily basal- 17 units (74%) Avg daily bolus - 6 units (26%) No using a sensor. Will add sensor. . Type 1 diabetes mellitus with hypoglycemia and w ithout coma 10/03/2022 Assessment & Plan (10/17/2023 7:16 AM ANIMAL CARE SUPERVISOR): This is a chronic condition which is inadequately controlled improving not at goal of less than 7% with hypoglycemia. Personally reviewed most recent A1c - Lab Results Component Value Date HGBA1C 7.8 10/16/2023 Personally reviewed POC blood sugar- at goal 80-180 Lab Results Component Value Date POCGLU 147 10/16/2023 Medication- humalog insulin per Omnipod dash. Basal changed to 0000-1 , 1100- 0.8, 1530-1.15 units/hr, carb ratio-12.5, sens- -45, bg target-110. For insulin pump failure- lantus 24 units twice daily and humalog 6-8 units - 3times a day prior to meals. May increase to 10 units with correction as needed. Monitor blood sugar continuously with sensor. Encouraged annual eye exam. Monofilament foot exam completed. protective senses intact Personally reviewed CMP eGFR- >60 Kidney function- normal Urine microalbumin/creatinine ratio - at goal <30 treated with carvedilol, Lasix, Entresto B/P today- at goal of <140/90. continue carvedilol, Lasix, Entresto Personally reviewed lipid panel. at Goal of less than 70. Continue atorvastatin, Zetia Assessment & Plan (04/03/2023 8:11 PM CDT): This is a chronic condition which is close to goal of less than 8%. Personally reviewed most recent A1c - Lab Results Component Value Date HGBA1C 8.1 04/03/2023 Personally reviewed POC blood sugar- not at goal 80-180 Lab Results Component Value Date POCGLU 231 04/03/2023 Medication- Diabetes regimen includes: insulin per Omnipod dash. Basal increased to 0.9 units/hr, carb ratio-15, sens- decreased -40, bg target-110. For insulin pump failure- lantus 24 units twice daily and humalog 6-8 units - 3times a day prior to meals. May increase to 10 units with correction as needed. Discussed and reviewed using th temporary basal feature on her omnipod dash while at work to avoid hypoglycemia. Monitor blood sugar continuously with dexcom 7 sensor. Encouraged annual eye exam. Monofilament foot exam completed. protective senses intact Personally reviewed CMP eGFR- >60 Kidney function- normal Urine microalbumin/creatinine ratio - goal <30 treated with carvedilol, entresto, farixga and lasix B/P today- at goal of <140/90. continue carvedilol, entresto, farixga and lasix Personally reviewed lipid panel. Not at Goal of less than 70. Continue atorvastatin Assessment & Plan (10/03/2022 4:46 PM ANIMAL CARE SUPERVISOR): This is a chronic condition which is inadequately controlled , improving but not at goal of less than 7%. Personally reviewed most recent A1c -8.8% Personally reviewed POC blood sugar- 329. not at goal 80-180 Medication- continue Lantus 24 units in the a.m., decrease Lantus to 18 units in the p.m. to help avoid hypoglycemia Continue Humalog 10 units prior to meals with sliding scale Monitor blood sugar4 times a day. Continuously with sensor. Encouraged annual eye exam. Monofilament foot exam completed. protective senses intact Urine microalbumin/creatinine ratio - at goal <30 treated with Entresto Personally reviewed CMP GFR- >60 Kidney function- normal B/P today- at goal of <140/90. Continue Entresto and carvedilol Personally reviewed lipid panel. Not at Goal of less than 70. Continue atorvastatin and Zetia CKD stage 2 due to type 1 diabetes mellitus 06/19 Automatic implantable cardiac defibrillator in s itu 01/14/2022 Overview (01/14/2022): [employer] Acticor Single ICD. Dx; NICM. DOI 01/13/2022-[facility]. [employer]ience remote monitoring. Coronary artery disease invo lving [place] coronary artery of [place] heart without angina pectoris 01/04/2022 Palpitations 01/04/2022 Mixed diabetic hyperlipidemi a associated with type 1 diabetes mellitus 01/04/2022 Assessment & Plan (07/08/2024 6:07 PM CDT): This is a chronic condition which isAt goal . Goal is LDL less than 70 Continue atorvastatin, Zetia Encouraged to eat healthy, include fresh fruits and vegetables daily and avoid eating fried foods more than once per week. Assessment & Plan (10/17/2023 7:20 AM ANIMAL CARE SUPERVISOR): This is a chronic condition which is at goal of LDL less than 70 Continue atorvastatin, zetia Encouraged to eat healthy, include fresh fruits and vegetables daily and avoid eating fried foods more than once per week. Encouraged to take medications as prescribed. Assessment & Plan (07/10/2023 3:57 PM CDT): This is a chronic condition which is at goal of LDL less than 70 Continue atorvastatin, Zetia Encouraged to eat healthy, include fresh fruits and vegetables daily and avoid eating fried foods more than once per week. Encouraged to take medications as prescribed. Assessment & Plan (11/14/2022 6:00 PM ANIMAL CARE SUPERVISOR): This is a chronic condition which is not at goal of LDL less than 70 LDL-115 Continue atorvastatin and Zetia Encouraged to eat healthy, include fresh fruits and vegetables daily and avoid eating fried foods more than once per week. Encouraged to take medications as prescribed. Type 1 diabetes mellitus with hyperglycemia 12/17 Assessment & Plan (07/08/2024 6:06 PM CDT): This is a chronic condition which is elevated, not at goal with hypoglycemia . Goal is less than 7%. Personally reviewed most recent A1c - Lab Results Component Value Date HGBA1C 8.4 07/08/2024 Personally reviewed POC blood sugar- elevated, not at goal of 80-180 Lab Results Component Value Date POCGLU 195 07/08/2024 Medication- humalog insulin per Omnipod dash. Basal changed to 0000-1.2 , 1100- 0.8, 1530-1.15 units/hr, carb ratio-12.5, sens- -45, bg target-110. Will upgrade to Omnipod 0 P5 For insulin pump failure- lantus 24 units twice daily and humalog 6-8 units - 3times a day prior to meals. May increase to 10 units with correction as needed. Monitor blood sugar continuously with Dexcom cgm. Encouraged annual eye exam. Monofilament foot exam completed. Protective senses - intact eGFR- greater than 60 Kidney function-at goal Urine microalbumin/creatinine ratio - at goal. Goal is <30 Continue carvedilol, Lasix, Entresto Assessment & Plan (10/17/2023 7:15 AM ANIMAL CARE SUPERVISOR): This is a chronic condition which is inadequately controlled improving not at goal of less than 7% with hypoglycemia. Personally reviewed most recent A1c - Lab Results Component Value Date HGBA1C 7.8 10/16/2023 Personally reviewed POC blood sugar- at goal 80-180 Lab Results Component Value Date POCGLU 147 10/16/2023 Medication- humalog insulin per Omnipod dash. Basal changed to 0000-1 , 1100- 0.8, 1530-1.15 units/hr, carb ratio-12.5, sens- -45, bg target-110. For insulin pump failure- lantus 24 units twice daily and humalog 6-8 units - 3times a day prior to meals. May increase to 10 units with correction as needed. Monitor blood sugar continuously with sensor. Encouraged annual eye exam. Monofilament foot exam completed. protective senses intact Personally reviewed CMP eGFR- >60 Kidney function- normal Urine microalbumin/creatinine ratio - at goal <30 treated with carvedilol, Lasix, Entresto B/P today- at goal of <140/90. continue carvedilol, Lasix, Entresto Personally reviewed lipid panel. at Goal of less than 70. Continue atorvastatin, Zetia Assessment & Plan (07/10/2023 3:54 PM CDT): This is a chronic condition which is inadequately controlled , worsening not at goal of less than 7%. Personally reviewed most recent A1c - Lab Results Component Value Date HGBA1C 8.4 07/10/2023 Personally reviewed POC blood sugar- at goal 80-180 Lab Results Component Value Date POCGLU 99 07/10/2023 Medication- Continue insulin per Omnipod dash. Basal increased to 1 units/hr, carb ratio-12.5, sens- decreased -45, bg target-110. For insulin pump failure- lantus 24 units twice daily and humalog 6-8 units - 3times a day prior to meals. May increase to 10 units with correction as needed. Monitor blood sugar continuously with dexcom 7 sensor. Encouraged annual eye exam. Monofilament foot exam completed. protective senses intact Personally reviewed CMP eGFR- >60 Kidney function- normal Urine microalbumin/creatinine ratio - at goal <30 treated with carvedilol, Lasix, sacubitril/valsartan. B/P today- at goal of <140/90. continue carvedilol, Lasix, sacubitril/valsartanACE/ARB Personally reviewed lipid panel. Not at Goal of less than 70. Continue atorvastatin, Zetia Assessment & Plan (04/03/2023 8:09 PM CDT): This is a chronic condition which is close to goal of less than 8%. Personally reviewed most recent A1c - Lab Results Component Value Date HGBA1C 8.1 04/03/2023 Personally reviewed POC blood sugar- not at goal 80-180 Lab Results Component Value Date POCGLU 231 04/03/2023 Medication- Diabetes regimen includes: insulin per Omnipod dash. Basal increased to 0.9 units/hr, carb ratio-15, sens- decreased -40, bg target-110. For insulin pump failure- lantus 24 units twice daily and humalog 6-8 units - 3times a day prior to meals. May increase to 10 units with correction as needed. Monitor blood sugar continuously with dexcom 7 sensor. Encouraged annual eye exam. Monofilament foot exam completed. protective senses intact Personally reviewed CMP eGFR- >60 Kidney function- normal Urine microalbumin/creatinine ratio - goal <30 treated with carvedilol, entresto, farixga and lasix B/P today- at goal of <140/90. continue carvedilol, entresto, farixga and lasix Personally reviewed lipid panel. Not at Goal of less than 70. Continue atorvastatin Assessment & Plan (12/26/2022 3:43 PM CDT): This is a chronic condition which is poorly controlled, worsening not at goal of less than 7%. Personally reviewed most recent A1c - Lab Results Component Value Date HGBA1C 9.1 12/26/2022 Personally reviewed POC blood sugar- at goal 80-180 Lab Results Component Value Date POCGLU 148 12/26/2022 Medication- Continue omnipod dash. For insulin pump failure- use Lantus 24 units twice daily, Humalog 6-10 units prior to meals. Monitor blood sugar4 times a day. Will add Dexcom 7 sensor . Encouraged annual eye exam. Monofilament foot exam completed. protective senses intact Urine microalbumin/creatinine ratio - at goal <30 treated with Entresto Personally reviewed CMP GFR- >60 Kidney function- normal B/P today- at goal of <140/90. Continue Entresto and carvedilol Personally reviewed lipid panel. Not at Goal of less than 70. Continue atorvastatin and Zetia Assessment & Plan (11/14/2022 5:55 PM ANIMAL CARE SUPERVISOR): This is a chronic condition which is inadequately controlled , improving but not at goal of less than 7%. Personally reviewed most recent A1c -8.8% Personally reviewed POC blood sugar- 329. not at goal 80-180 Medication- continue Lantus 24 units twice daily Continue Humalog 6-8 units prior to meals. May increase to 10 units per meal with correctional dose as needed Monitor blood sugar4 times a day. Continuously with sensor. Encouraged annual eye exam. Monofilament foot exam completed. protective senses intact Urine microalbumin/creatinine ratio - at goal <30 treated with Entresto Personally reviewed CMP GFR- >60 Kidney function- normal B/P today- at goal of <140/90. Continue Entresto and carvedilol Personally reviewed lipid panel. Not at Goal of less than 70. Continue atorvastatin and Zetia Assessment & Plan (10/03/2022 4:45 PM ANIMAL CARE SUPERVISOR): This is a chronic condition which is inadequately controlled , improving but not at goal of less than 7%. Personally reviewed most recent A1c -8.8% Personally reviewed POC blood sugar- 329. not at goal 80-180 Medication- continue Lantus 24 units in the a.m., decrease Lantus to 18 units in the p.m. to help avoid am hypoglycemia. Continue Humalog 10 units prior to meals with sliding scale Monitor blood sugar4 times a day. Continuously with sensor. Encouraged annual eye exam. Monofilament foot exam completed. protective senses intact Urine microalbumin/creatinine ratio - at goal <30 treated with Entresto Personally reviewed CMP GFR- >60 Kidney function- normal B/P today- at goal of <140/90. Continue Entresto and carvedilol Personally reviewed lipid panel. Not at Goal of less than 70. Continue atorvastatin and Zetia PAD (peripheral artery disease) 01/04/2022 Cardiomyopathy, dilated 11/24/2021 Heart failure with improved ejection fraction (H FimpEF) 11/24/2021 Former tobacco use 11/24/2021 History of COVID-19 11/24/2021 ASD (atrial septal defect) 11/24/2021 Resolved Problems Problem Noted Date Diagnosed Date Resolved Date Visit for wound check 01/20/20222021 At risk for sudden cardiac 11/24/2021 07/12/2022 Precordial pain 11/24/2021 07/12/2022 Social History Tobacco Use Types Packs/Day Years Used Date Smoking Tobacco: Former Cigarettes 1.5 35 1 7 - 2021 Smokeless Tobacco: Never Tobacco Cessation:Counseling Given: Not Answered AUDIT-C Answer Date Recorded Q1: How often do you have a drink containing alc ohol? Never 10/27/2021 Average Number of Drinks Not on file 022 Frequency of Binge Drinking Not on file 05/2022 Personal Safety Answer Date Recorded Have you ever been in or are you currently in a harmful physical or emotional relationship or is someone making you feel afraid or unsafe? Denies 05/11/2023 Comments No Sex and Gender Information Value Date Recorded Sex Assigned at Not on file Legal Sex Female 12:49 AM ANIMAL CARE SUPERVISOR Gender Identity Not on file Sexual Orientation Not on file Last Filed Vital Signs Vital Sign Reading Time Taken Comments Blood Pressure 106/60 11/22/2024 2:59 PM ANIMAL CARE SUPERVISOR Pulse 82 11/22/2024 2:59 PM ANIMAL CARE SUPERVISOR Temperature 36.6 C (97.9 F) 05/27/2024 10:18 AM CDT Respiratory Rate 18 05/27/2024 10:18 AM CDT Oxygen Saturation 95% 11/22/2024 2:59 PM ANIMAL CARE SUPERVISOR Inhaled Oxygen Concentration - - Weight 67.1 kg (148 lb) 11/22/2024 2:59 PM ANIMAL CARE SUPERVISOR Height 170.2 cm (5' 7 ) 11/22/2024 2:59 PM ANIMAL CARE SUPERVISOR Body Mass Index 23.18 11/22/2024 2:59 PM ANIMAL CARE SUPERVISOR Plan of Treatment Not on file Procedures Procedure Name Priority Date/Time Associated Diagnosis Comments POCT LIPID PANEL Routine 11/22/2024 3:05 PM ANIMAL CARE SUPERVISOR Lipid screening POCT HEMOGLOBIN A1C Routine 11/18/2024 3 :35 PM ANIMAL CARE SUPERVISOR Type 1 diabetes mellitus with hyperglycemia (HCC) POCT GLUCOSE Routine 11/18/2024 3:30 PM ANIMAL CARE SUPERVISOR Type 1 diabetes mellitus with hyperglycemia (HCC) RETINAVUE SCANNER - OU - BOTH EYES Routine 07/08/2024 Type 1 diabetes mellitus with hyperglycemia (HCC) EGFR Routine 09/25/2023 TSH Routine 09/25/2023 ALBUMIN CREATININE RATIO, URINE Routine 07/27/2022 DIAGNOSTIC MAMMOGRAM BILATERAL W LEFTY Routine 11/26/2014 10:12 AM CDT from Last 3 Months or Most Recently Relevant to Health Maintenance Results * POCT lipid panel (11/22/2024 3:05 PM ANIMAL CARE SUPERVISOR) Cholesterol, POC 100 mg/dL HDL, POC 22 mg/dL Triglycerides, POC 65 mg/dL LDL Cholesterol POC 64 mg/dL Chol/HDL Ratio, POC - Non-HDL Cholesterol, POC - mg/dL Cholesterol Total, POC 100 mg/dL Capillary blood 11/22/2024 3 :05 PM ANIMAL CARE SUPERVISOR Vida Wagner NP POINT OF CARE TEST ORDERA BLES Final Result * (ABNORMAL) POCT hemoglobin A1c (11/18/2024 3:35 PM ANIMAL CARE SUPERVISOR) Hemoglobin A1C, POC 8.6 4.0 - 5.6 % Blood 11/18/2024 3:35 PM ANIMAL CARE SUPERVISOR us Heidy Pena NP POINT OF CARE TEST ORDERABLES F inal Result * POCT glucose (11/18/2024 3:30 PM ANIMAL CARE SUPERVISOR) Glucose Blood, POC 271 mg/dL Blood 11/18/2024 3:30 PM ANIMAL CARE SUPERVISOR us Heidy Pena SURGICAL PHYSICIAN ASSISTANT POINT OF CARE TEST ORDERABLES F inal Result * RetinaVue Scanner - OU - Both Eyes (07/08/2024) Anatomical Region Laterality Modality Head Fundus Photograp hy 07/08/2024 Heidy Pena NP OPHTH PHOTOGRAPHY Final Result * EGFR (09/25/2023) SCRIBED eGFR in >60 EXTERNAL LAB SCRIBED eGFR in NonAfrican Cambodian >60 EXTERNAL LAB 09/25/2023 Historical Provider HEALTH MAINTENANCE Final Result EXTERNAL LAB * TSH (09/25/2023) Scribed TSH 0.68 0.47 - 4.68 mcU/mL EXTERNAL LAB Blood 09/25/2023 Historical Provider LAB BLOOD ORDERABLES Clarissa l Result EXTERNAL LAB * Albumin Creatinine Ratio, Urine (07/27/2022) SCRIBED Creatinine, Urine 70.9 63 - 166 EXTERNAL LAB SCRIBED Microalbumin 7 1.0 - 30.0 EXTERNAL LAB SCRIBED Microalb/Creat Ratio 0.10 EXTERNAL LAB Urine 07/27/2022 Historical Provider LAB URINE ORDERABLES Clarissa l Result EXTERNAL LAB * Diagnostic Mammogram Bilateral W Lefty (11/26/2014 10:12 AM CDT) Anatomical Region Laterality Modality Breast Bilateral Mammography 11/26/2014 10:1 2 AM CDT Impressions 11/26/2014 11:07 AM CDT BIRADS 2: BENIGN 1. No evidence of malignancy in either breast. 2. Palpable lump in the upper outer left breast correlates with a benign lymph node. 3. Benign clustered cysts along the 3 o'clock axis of the subareolar left breast. No further follow-up is necessary. Routine annual screening mammography is recommended in 1 year. This was discussed with Ms. Powell. Electronically signed by: Dr. Doug Britton nh/:11/26/2014 11:06:53 Power Chisel Operator: Yesika Anderson)(Chintan), [facility] letter sent: MG & US Done-Normal Reading location: BI-RADS: 2 Benign [EOD] Narrative 11/26/2014 11:07 AM CDT - [facility] BILAT DIAGNOSTIC 3D W/CAD BILATERAL DIGITAL DIAGNOSTIC MAMMOGRAM 3D/2D WITH CAD: 11/26/2014 The study was acquired using full field digital technology and interpreted from soft copy. Current study was also evaluated with Vycon version 7.2. CLINICAL: 44-year-old woman presents for evaluation of 1) a palpable lump in the upper outer left breast, first noted 3.5 weeks ago, 2) interval follow-up of a probably benign cluster of cysts at 3 o'clock in the left breast, and 3) annual mammography of the right breast. COMPARISONS: Comparison is made to exams dated: 07/12/2013 mammogram and ultrasound, 01/10/2013 mammogram and ultrasound, and 11/17/2010 mammogram [facility]. BREAST TISSUE: There are scattered areas of fibroglandular density. MAMMOGRAPHIC FINDINGS: A radiopaque BB was placed over the palpable lump in the upper outer left breast. At this site at 2 o'clock posterior depth, there is a benign-appearing 6 mm lymph node. There is no other suspicious abnormality in this area. The iggos-jp-ive density mass in the central, slightly lateral left subareolar region has decreased in size, now measuring 7 mm (previously 10 mm). There is no suspicious calcification or architectural distortion in the left breast. There has been no suspicious change in the right breast. There is no dominant mass, suspicious calcification or architectural distortion in the right breast. ULTRASOUND FINDINGS: Targeted left breast ultrasound at the site of palpable concern at 2 o'clock 5 cm from nipple demonstrated a benign lymph node measuring 8 x 7 x 3 mm, corresponding to the mammographic lymph node. Targeted left breast ultrasound at 3 o'clock subareolar redemonstrated the clustered microcysts currently measuring 8 x 7 x 3 mm, previously measuring 11 x 7 x 3 mm. Procedure Note Provider, MD Jimena - 02/02/2021 - [facility] BILAT DIAGNOSTIC 3D W/CAD BILATERAL DIGITAL DIAGNOSTIC MAMMOGRAM 3D/2D WITH CAD: 11/26/2014 The study was acquired using full field digital technology and interpretedfrom soft copy. Current study was also evaluated with ICAD version 7.2. CLINICAL: 44-year-old woman presents for evaluation of 1) a palpable lumpin the upper outer left breast, first noted 3.5 weeks ago, 2) intervalfollow-up of a probably benign cluster of cysts at 3 o'clock in the left breast, and3) annual mammography of the right breast. COMPARISONS: Comparison is made to exams dated: 07/12/2013 mammogram and ultrasound, 01/10/2013 mammogram and ultrasound, [facility] BREAST TISSUE: There are scattered areas of fibroglandular density. MAMMOGRAPHIC FINDINGS: A radiopaque BB was placed over the palpable lumpin the upper outer left breast. At this site at 2 o'clock posterior depth,there is a benign-appearing 6 mm lymph node. There is no other suspiciousabnormality in this area. The gdoco-rt-wcc density mass in the central, slightly lateral leftsubareolar region has decreased in size, now measuring 7 mm (previously 10 mm). There is no suspicious calcification or architectural distortion in theleft breast. There has been no suspicious change in the right breast. There is nodominant mass, suspicious calcification or architectural distortion in the rightbreast. ULTRASOUND FINDINGS: Targeted left breast ultrasound at the site ofpalpable concern at 2 o'clock 5 cm from nipple demonstrated a benign lymph node measuring 8 x 7 x 3 mm, corresponding to the mammographic lymph node. Targeted left breast ultrasound at 3 o'clock subareolar redemonstrated the clustered microcysts currently measuring 8 x 7 x 3 mm, previouslymeasuring 11 x 7 x 3 mm. IMPRESSION: BIRADS 2: BENIGN 1. No evidence of malignancy in either breast. 2. Palpable lump in the upper outer left breast correlates with a benignlymph node. 3. Benign clustered cysts along the 3 o'clock axis of the subareolar left breast. No further follow-up is necessary. Routine annual screening mammography is recommended in 1 year. This was discussed with Ms. Powell. Electronically signed by: Dr. Doug Britton nh/:11/26/2014 11:06:53 Power Chisel Operator: Yesika Anderson)(Chintan), [facility] letter sent: MG & US Done-Normal Reading location: BI-RADS: 2 Benign [EOD] us Tonie Cook MD IMG MAMMO PROCEDURES Final Resu lt from Last 3 Months or Most Recently Relevant to Health Maintenance Insurance [facility] Care Teams [employer] Principal Relationship Specialty Start Date End Date German Feliciano MD PCP - General Emergency Medicine 11/24/21 No, Physician 10/05/21
--- OUTSIDE RECORDS SUMMARY | 2025-01-20 12:37 | XMS_ITS | Encounter Summary ---
Author Organization [facility] Address [address] [place] [address] Phone Care Team Providers Care Student Ambassador Name Role Phone German Feliciano MD Primary Care Provider [phone] Reason for Visit * Reason Comments Med Change Request Encounter Details Date Type Department Care Team (Late Contact Info) Description 06/06/2024 Refill [facility] [address] [place] [id number] [place] [address] [place] [address] [phone] Social History Tobacco Use Types Packs/Day Years Used Date Smoking Tobacco: Every Day Smokeless Tobacco: Never Comments Unknown Sex and Gender Information Value Date Recorded Sex Assigned at Not on file Legal Sex Female 2:20 PM MDT Gender Identity Not on file Sexual Orientation Not on file documented as of this encounter Plan of Treatment Upcoming Encounters Date Type Department Care Team (Late Contact Info) Description 01/30/2025 4:00 PM CDT Office Visit [facility] [address] [place] [id number] [place] MD [address] [address] documented as of this encounter Visit Diagnoses Not on filedocumented in this encounter Care Teams Student Ambassador Relationship Specialty Start Date End Date German Feliciano MD PCP - General Family Medicine 03/23/22 documented as of this encounter
--- OUTSIDE RECORDS SUMMARY | 2025-01-20 12:37 | XMS_ITS | Clinical Summary ---
Author Organization [facility] [address] Address [address] [place] [address] Care Team Providers Care Mines Inspector Name Role Phone German Feliciano MD Primary Care Provider [phone] No, Physician Unavailable Allergies Active Allergy Reactions Criticality Noted Date [...] (HCC) USE DIRECTED THREE TIMES DAILY 07/26/20 22 Active OneTouch Verio Flex meter miscIndications:Ty pe 1 diabetes mellitus with hyperglycemia (HCC) as directed 07/26/20 22 Active OneTouch Delica Plus Lancet 30 gauge miscIndications:Ty pe 1 diabetes mellitus with hyperglycemia (HCC) USE 1 STRIP TO CHECK GLUCOSE THREE TIMES DAILY 07/26/20 22 Active TRUEplus Pen Needle 31 gauge x [...] (10 mg total) by mouth every morning 10/02/20 23 Active ergocalciferol (VITAMIN D) 50,000 unit capsule Take 1 capsule (50,000 Units total) by mouth once a week Active insulin lispro (HumaLOG, ADMELOG) 100 unit/mL pen for injectionIndicatio ns:type 1 diabetes mellitus Inject 6-8 units prior to meal 3x/day with correction. or use to fill omnipod insulin pump. Total daily dose- 100 units. E110.65 90 mL 10/16/19 24 Active sacubitriL-valsart an (Entresto) 97-103 [...] units daily. Needs the 4,8,12 cartridge box [facility] [address]-50. E10.9 30 day supply 180 each 11/19/19 25 Active carvediloL (COREG) 6.25 mg [...] 40 mg tabletIndications: Coronary artery disease involving peters[place] coronary artery of [place] heart without angina pectoris,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 (HCC) Take 1 tablet (40 mg total) by mouth nightly at bedtime. 90 tablet 3 11/29/19 25 Active ezetimibe (ZETIA) 10 mg tabletIndications: Coronary artery disease involving [place] coronary artery of [place] heart without angina pectoris,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 (HCC) Take 1 tablet (10 mg total) by mouth daily 90 tablet 3 11/29/19 Active Dexcom G7 Sensor device USE DEVICE CONTINUOUSLY FOR BLOOD SUGAR MONITORING. CHANGE EVERY 10 DAYS. 10 each 12/04/19 Active Active Problems Problem Noted Date Diagnosed Date Dexcom continuous glucose monitoring device 11/2024 Assessment & Plan (11/18/2024 4:24 PM CONTROL CENTER OPERATOR): Continuous glucose monitor (cgm) applied from 11/05/2024 to 11/18/2024 This device was placed for monitor and treatment of blood sugar. Interpretation of data- average glucose 189. 50% time in range. 1% hypoglycemia. 49% hyperglycemia. GMI is 7.8% Omnipod Dash Insulin pump in place 12/26/2022 Assessment & Plan (11/18/2024 4:23 PM CONTROL CENTER OPERATOR): This is a chronic condition which is [...] to download. She was not connected to [employer] Will upgrade to Omnipod 0 P 5. Start a pack provided in office. message sent to Ewelina from [employer] to set up training Type of insulin pump- Omnipod Dash. Adjustments made. Pump settings : Basal changed to 0000-1.2, 1100-0.8, 1530-1.15 units/hr IC -12.5 ISF -45 Active insulin time 4hrs. TARGET GLUCOSE -110 From previous download Avg Total daily insulin-39 units Avg daily basal- 23 units (59%) Avg daily bolus - 16 units (41%) . Assessment & Plan (10/17/2023 7:19 AM CONTROL CENTER OPERATOR): This is a chronic condition which is [...] 10/03/2022 Assessment & Plan (10/17/2023 7:16 AM CONTROL CENTER OPERATOR): This is a chronic condition which is inadequately controlled improving not at goal of less than 7% with hypoglycemia. Personally reviewed most recent A1c - Lab Results Component Value Date HGBA1C 7.8 10/16/2023 Personally reviewed POC blood sugar- at goal 80-180 Lab Results Component Value Date POCGLU 147 10/16/2023 Medication- humalog insulin per ClassifEyeipod Segetis. Basal changed to 0000-1 , 1100- 0.8, [...] atorvastatin Assessment & Plan (10/03/2022 4:46 PM CONTROL CENTER OPERATOR): This is a chronic condition which is [...] defibrillator in s itu 01/14/2022 Overview (01/14/2022): Team [employer] Acticor Single ICD. Dx; NICM. DOI 01/13/2022-[facility]. Team [employer] remote monitoring. Coronary artery disease invo lving petersburg coronary artery of [place]eters[place] heart without angina pectoris 01/04/2022 Palpitations 01/04/2022 [...] week. Assessment & Plan (10/17/2023 7:20 AM CONTROL CENTER OPERATOR): This is a chronic condition which is [...] prescribed. Assessment & Plan (11/14/2022 6:00 PM CONTROL CENTER OPERATOR): This is a chronic condition which is [...] Entresto Assessment & Plan (10/17/2023 7:15 AM CONTROL CENTER OPERATOR): This is a chronic condition which is [...] Zetia Assessment & Plan (11/14/2022 5:55 PM CONTROL CENTER OPERATOR): This is a chronic condition which is [...] Zetia Assessment & Plan (10/03/2022 4:45 PM CONTROL CENTER OPERATOR): This is a chronic condition which is [...] cardiac 11/24/2021 07/12/2022 Precordial pain 11/24/2021 07/12/2022 Encounters Date Type Department Care Team Description 11/22/2024 3:00 PM CONTROL CENTER OPERATOR Office Visit [facility] [address] [place] [address] Vida Wagner NP Nonischemic cardiomyopathy (HCC); Automatic implantable cardiac defibrillator in situ; Coronary artery disease involving petersburg coronary artery of [place] heart without angina pectoris; 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 (HCC); Lipid screening 11/18/2024 3:00 PM CONTROL CENTER OPERATOR Office Visit [facility] at [address] [place] [address] Heidy Pena NP Type 1 diabetes mellitus with hyperglycemia (HCC) (Primary Dx); Type 1 diabetes mellitus with hypoglycemia and without coma (HCC); 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 (HCC); CKD stage 2 due to type 1 diabetes mellitus (HCC); Omnipod Dash Insulin pump in place; Dexcom continuous glucose monitoring device from Last 3 Months Surgical History Surgery Date Site/Laterality Comments INSERT / REPLACE / REMOVE PACEMAKER HYSTERECTOMY Medical History Medical History Date Comments Hyperlipidemia Diabetes mellitus (HCC) Acid indigestion Pneumonia due to COVID-19 virus Family History Medical History Relation Name Comments No Known Problems Father Hyperlipidemia Mother Heart disease Neg Hx Relation Name Status Comments Father Alive Mother Alive Social History Tobacco Use Types Packs/Day Years [...] on file Legal Sex Female 12:49 AM CONTROL CENTER OPERATOR Gender Identity Not on file Sexual Orientation Not on file Obstetrics History Last Filed Vital Signs Vital Sign Reading Time Taken Comments Blood Pressure 106/60 11/22/2024 2:59 PM CONTROL CENTER OPERATOR Pulse 82 11/22/2024 2:59 PM CONTROL CENTER OPERATOR Temperature 36.6 C (97.9 F) 05/27/2024 10:18 AM CDT Respiratory Rate 18 05/27/2024 10:18 AM CDT Oxygen Saturation 95% 11/22/2024 2:59 PM CONTROL CENTER OPERATOR Inhaled Oxygen Concentration - - Weight 67.1 kg (148 lb) 11/22/2024 2:59 PM CONTROL CENTER OPERATOR Height 170.2 cm (5' 7 ) 11/22/2024 2:59 PM CONTROL CENTER OPERATOR Body Mass Index 23.18 11/22/2024 2:59 PM CONTROL CENTER OPERATOR Plan of Treatment Health Maintenance Due Date Last Done Comments Colon Cancer Screening-Colonoscopy 1970 Depression Screening 1970 Hepatitis C Screening 1970 DTaP/Tdap/Td Vaccine (1 - Tdap) 1981 Hepatitis B Screening 1988 Regular Well Visit/Exam 18-64 1988 Pneumococcal vaccine <65 (1 of 2 - PCV) 1989 Breast Cancer Screening-Mammogram 11/27/2015 015 Lung Cancer Screening 2020 Zoster Vaccine (1 of 2) 2020 Albumin Creatinine Ratio, Urine 07/27/2023 , 02/10/2022 TSH Level 09/25/2024 09/25/2023, 01/21/2022 eGFR 09/25/2024 09/25/2023, 04/2024, 07/27/2022, Additional history exists Influenza Vaccine (Season Ended) 2025 Hemoglobin A1C 05/21/2025 11/18/2024, 06/19, 10/16/2023, Additional history exists Dilated Eye Exam 07/08/2025 07/08/2024 Foot Exam 07/08/2025 07/08/2024, 09/19, 07/10/2023, Additional history exists Lipid Panel 11/22/2025 11/22/2024, 04/2024, 04/28/2023, Additional history exists Procedures Procedure Name Priority Date/Time Associated Diagnosis Comments POCT LIPID PANEL Routine 11/22/2024 3:05 PM CONTROL CENTER OPERATOR Lipid screening POCT HEMOGLOBIN A1C Routine 11/18/2024 3 :35 PM CONTROL CENTER OPERATOR Type 1 diabetes mellitus with hyperglycemia (HCC) POCT GLUCOSE Routine 11/18/2024 3:30 PM CONTROL CENTER OPERATOR Type 1 diabetes mellitus with hyperglycemia (HCC) [...] * POCT lipid panel (11/22/2024 3:05 PM CONTROL CENTER OPERATOR) Cholesterol, POC 100 mg/dL HDL, POC 22 mg/dL Triglycerides, POC 65 mg/dL LDL Cholesterol POC 64 mg/dL Chol/HDL Ratio, POC - Non-HDL Cholesterol, POC - mg/dL Cholesterol Total, POC 100 mg/dL Capillary blood 11/22/2024 3 :05 PM CONTROL CENTER OPERATOR Vida Wagner NP POINT OF CARE TEST ORDERA BLES Final Result * (ABNORMAL) POCT hemoglobin A1c (11/18/2024 3:35 PM CONTROL CENTER OPERATOR) Hemoglobin A1C, POC 8.6 4.0 - 5.6 % Blood 11/18/2024 3:35 PM CONTROL CENTER OPERATOR us Heidy Pena NP POINT OF CARE TEST ORDERABLES F inal Result * POCT glucose (11/18/2024 3:30 PM CONTROL CENTER OPERATOR) Glucose Blood, POC 271 mg/dL Blood 11/18/2024 3:30 PM CONTROL CENTER OPERATOR us Heidy Pena NP POINT OF CARE TEST ORDERABLES F inal Result * RetinaVue Scanner - OU - Both Eyes (07/08/2024) Anatomical Region Laterality Modality Head Fundus Photograp hy 07/08/2024 us Heidy Pena NP OPHTH PHOTOGRAPHY Final Result * EGFR (09/25/2023) SCRIBED eGFR in >60 EXTERNAL LAB SCRIBED eGFR in NonAfrican German >60 EXTERNAL LAB 09/25/2023 Historical Provider HEALTH MAINTENANCE Final Result Performing Organization Address City/[facility]/ZIP Co de Phone Number EXTERNAL LAB * TSH (09/25/2023) Scribed TSH 0.68 0.47 - 4.68 mcU/mL EXTERNAL LAB Blood 09/25/2023 Historical Provider LAB BLOOD ORDERABLES Clarissa l Result Performing Organization Address [facility]/ZIP Co de Phone Number EXTERNAL LAB * Albumin Creatinine Ratio, Urine (07/27/2022) SCRIBED Creatinine, Urine 70.9 63 - 166 EXTERNAL LAB SCRIBED Microalbumin 7 1.0 - 30.0 EXTERNAL LAB SCRIBED Microalb/Creat Ratio 0.10 EXTERNAL LAB Urine 07/27/2022 Historical Provider LAB URINE ORDERABLES Clarissa l Result Performing Organization Address [facility] Co de Phone Number EXTERNAL LAB * Diagnostic Mammogram Bilateral W [...] signed by: Dr. Doug Britton nh/:11/26/2014 11:06:53 Pool Manager: Yesika BOURNE (R)(M), [facility] letter sent: MG & US Done-Normal Reading location: BI-RADS: 2 Benign [EOD] Narrative 11/26/2014 11:07 AM CDT - [facility] BILAT DIAGNOSTIC 3D W/CAD BILATERAL DIGITAL [...] 01/10/2013 mammogram and ultrasound, and 11/17/2010 mammogram [facility]. BREAST TISSUE: There are scattered areas of fibroglandular density. MAMMOGRAPHIC FINDINGS: A radiopaque BB was placed over the palpable lump in the upper outer left breast. At this site at 2 o'clock posterior depth, there is a benign-appearing 6 mm lymph node. There is no other suspicious abnormality in this area. The atjus-kq-dnl density mass in the central, slightly lateral [...] Note Provider, MD Jimena - 02/02/2021 - [facility] BILAT DIAGNOSTIC 3D W/CAD BILATERAL DIGITAL [...] ultrasound, 01/10/2013 [facility] and ultrasound[facility] BREAST TISSUE: There are scattered areas of fibroglandular density. MAMMOGRAPHIC FINDINGS: A radiopaque BB was placed over the palpable lumpin the upper outer left breast. At this site at 2 o'clock posterior depth,there is a benign-appearing 6 mm lymph node. There is no other suspiciousabnormality in this area. The bultx-gp-zdn density mass in the central, slightly lateral [...] signed by: Dr. Doug Britton nh/:11/26/2014 11:06:53 Pool Manager: Yesika Anderson)(Chintan), [facility] letter sent: MG & US Done-Normal Reading location: BI-RADS: 2 Benign [EOD] Tonie Cook MD IMG MAMMO PROCEDURES Final Resu lt from Last 3 Months or Most Recently Relevant to Health Maintenance Insurance [id number] [place] [id number] [place] [address] [facility] Care Teams Mines Inspector Relationship Specialty Start Date End Date German Feliciano MD PCP - General Emergency Medicine 11/24/21 No, Physician 10/05/21
--- OUTSIDE RECORDS SUMMARY | 2025-01-20 12:37 | XMS_ITS | Clinical Summary ---
Author Organization [facility] Address [address], [place] [address] Phone Care Team Providers Care Web Support Engineer Name Role Phone German Feliciano MD Primary Care Provider [phone] Allergies Active Allergy Reactions Criticality Noted Date Comments Latex Rash Medium 10/27/2021 Medications aspirin 81 MG chewable tablet CHEW AND SWALLOW 1 TABLET BY MOUTH ONCE DAILY AT 8 IN THE MORNING 2 Active atorvastatin (LIPITOR) 40 MG tablet Take 40 mg by mouth daily 2 Active carvedilol (COREG) 6.25 MG tablet Take 6.25 mg by mouth 4 tablets every 12 hours 2 Active insulin glargine (LANTUS) 100 UNIT/ML injection 22 Units 1 (one) time each day 22units nightly 2 Active sacubitril-mary kay sartan (ENTRESTO) 97-103 MG per tablet Take 1 tablet by mouth 2 times daily 2 Active ezetimibe (ZETIA) 10 MG tablet Take 10 mg by mouth 1 (one) time each day Active furosemide (LASIX) 40 MG tablet Take 40 mg by mouth 1 (one) time each day Active Farxiga 10 MG tablet TAKE 1 TABLET BY MOUTH IN THE MORNING 180 tablet 5 Active ergocalciferol (VITAMIN D2) 1.25 MG (37856 UT) capsule Take 1 capsule by mouth once a week 5 capsule 5 Active ergocalciferol (VITAMIN D2) 1.25 MG (05934 UT) capsule Take 1 capsule (50,000 Units total) by mouth 1 (one) time per week 5 capsule 1 5 01/03/20 25 Discontinued Active Problems Problem Noted Date Diagnosed Date Type 2 diabetes mellitus 09/26/2023 Anemia in chronic kidney disease 05/31/2023 Chronic kidney disease stage 2 01/25/2023 Hypertension 01/25/2023 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 Vitamin D deficiency 01/25/2023 Resolved Problems Problem Noted Date Diagnosed Date Resolved Date Insulin dependent diabetes mellitus type 1A 01/25/2023 05/31/2023 Congestive heart failure 01/25/2023 Encounters Date Type Department Care Team Description 01/01/2025 Refill [facility] [address] [place] [address], [facility] [address] [place] [address] Suleman Lake MD 12/02/2024 Refill [facility] [address] [place] [phone] Suleman Lake MD 11/12/2024 Refill [facility] [address] [place] [phone] Naty De La Torre RN from Last 3 Months Social History Tobacco Use Types Packs/Day Years Used Date Smoking Tobacco: Every Day Smokeless Tobacco: Never Tobacco Cessation:Ready to Q uit: Not Asked; Counseling Given: Not Answered Comments Unknown Sex and Gender Information Value Date Recorded Sex Assigned at Not on file Legal Sex Female 2:20 PM MDT Gender Identity Not on file Sexual Orientation Not on file Last Filed Vital Signs Vital Sign Reading Time Taken Comments Blood Pressure 135/75 08/01/2024 3:50 PM EARTH SCIENCE TECHNICAL OFFICER Pulse 61 08/01/2024 3:50 PM EARTH SCIENCE TECHNICAL OFFICER Temperature - - Respiratory Rate - - Oxygen Saturation 91% 06/01/2023 3:21 PM CDT Inhaled Oxygen Concentration - - Weight 68 kg (150 lb) 08/01/2024 3:50 PM EARTH SCIENCE TECHNICAL OFFICER Height 170.2 cm (5' 7 ) 08/01/2024 3:50 PM EARTH SCIENCE TECHNICAL OFFICER Body Mass Index 23.49 08/01/2024 3:50 PM EARTH SCIENCE TECHNICAL OFFICER Plan of Treatment Upcoming Encounters Date Type Department Care Team (Late st Contact Info) Description 01/30/2025 4:00 PM CDT Office Visit [facility] [address] [place] [address] [address] [place] [address] Suleman Lake MD [address] [address] Health Maintenance Due Date Last Done Comments Diabetic Foot Exam 1980 Ophthalmology Exam 1980 Pneumococcal PPSV23 Highest Risk Adult (1 of 3 - PCV13 ) 1989 Influenza Vaccine (Season Ended) 2025 Insurance PM [employer] Care Teams Web Support Engineer Relationship Specialty Start Date End Date German Feliciano MD PCP - General Family Medicine 03/23/22
[2025-01-20 13:05] LABS: Hemoglobin 14.7 g/dL (12.0-15.0); Mean Corpuscular Hemoglobin 29.4 pg (26-34); Mean Platelet Volume 10.9 fl (7.4-10.4); Platelet Count Result 321 k/mm3 (150-375); Red Cell Distribution Width 13.2 % (11.5-14.5); White Blood Count 6.9 K/mm3 (4.5-10.0)
[2025-01-20 13:08] LABS: Add Urine Microscopic? NO; Appearance Urine Clear (Clear); Bilirubin Urine Negative (Negative); Blood Urine Negative (Negative); Color Urine Yellow (Yellow); Glucose Urine UA 1+ mg/dL (Negative); Ketones Urine Negative (Negative); Leukocyte Esterase Ur Negative LEU/UL (Negative); Nitrate Urine Negative (Negative); Protein Urine Negative (Negative); Specific Grav Ur 1.006 (1.001-1.035); Urobilinogen Urine 0.2 mg/dL (<2.0); pH Urine 5.5 (5.0-9.0)
[2025-01-20 13:37] LABS: LDL Cholesterol Direct 55 mg/dL
[2025-01-20 13:53] LABS: Vitamin D 25 Hydroxy 84.1 ng/mL
[2025-01-20 14:32] LABS: Creatinine Urine 12.1 mg/dL
[2025-01-20 14:34] LABS: Total Protein Urine Random 13 mg/dL
[2025-01-20 14:35] LABS: Creatinine Urine 12.3 mg/dL
[2025-01-20 14:36] LABS: Microalbumin Urine Random 12.1 mg/L (0-16.7)
[2025-01-20 15:04] LABS: Alanine Aminotransferase 34 U/L (6-35); Albumin Level 4.1 g/dL (3.5-5.1); Alkaline Phosphatase 100 U/L (38-126); Anion Gap 6 mmol/L (4-12); Aspartate Amino Transferase 44 U/L (14-36); Bilirubin,Total 0.4 mg/dL (0.2-1.3); Blood Urea Nitrogen 18 mg/dL (7-17); Calcium 8.9 mg/dL (8.4-10.2); Carbon Dioxide 25 mmol/L (22-30); Chloride 109 mmol/L (98-107); Cholesterol 103 mg/dL (0-200); Estimated Glomerular Filt Rate > 60; Glucose 42 mg/dL (65-110); HDL Direct 31 mg/dL; Potassium 3.9 mmol/L (3.4-5.0); Sodium 140 mmol/L (137-145); Triglycerides 48 mg/dL (<150)
[2025-01-20 16:04] LABS: Phosphorus 3.5 mg/dL (2.5-4.5)
[2025-01-20 20:31] LABS: Hemoglobin A1C 7.8 % (<5.7)
== END 2025-01-20 12:03 | disposition home or self-care (01) ==
PROVIDERS: PCP Emergency Medicine; Referring Provider Hospitalist; Visit Provider Nurse Practitioner
DX: I12.9 Hypertensive chronic kidney disease with stage 1 through stage 4 chronic kidney disease, or unspecified chronic kidney disease (principal); E10.22 Type 1 diabetes mellitus with diabetic chronic kidney disease; N18.2 Chronic kidney disease, stage 2 (mild); E10.65 Type 1 diabetes mellitus with hyperglycemia
CPT/HCPCS: 36415; 80053; 80061; 81003; 81050; 82043; 82306; 82570; 83036; 84100; 84156; 85027

== ENCOUNTER 2025-07-28 10:22 | Outpatient (CLI) | payer OTHER, SELFPAY ==
[2025-07-28 10:48] LABS: Hematocrit 48.5 % (37.0-47.0); Hemoglobin 15.8 g/dL (12.0-15.0); Immature Granulocyte Percent A 0.3 % (0-0.5); Lymphocytes Absolute Auto 2.07 K/mm3 (0.9-3.2); Mean Corpuscular HGB Conc 32.6 g/dl (32-36); Mean Corpuscular Hemoglobin 29.3 pg (26-34); Mean Corpuscular Volume 90.0 fl (80-100); Nucleated Red Blood Cells Absolute Auto 0.000 K/mm3 (0.0-0.012); Nucleated Red Blood Cells Perc 0.0 % (0.0-0.2); Platelet Count Result 285 k/mm3 (150-375); Red Blood Count 5.39 M/mm3 (4.2-5.4); White Blood Count 9.0 K/mm3 (4.5-10.0)
[2025-07-28 10:50] LABS: Add Urine Microscopic? NO; Appearance Urine Clear (Clear); Glucose Urine UA 3+ mg/dL (Negative); Leukocyte Esterase Ur Negative LEU/UL (Negative); Nitrate Urine Negative (Negative); Specific Grav Ur 1.007 (1.001-1.035)
[2025-07-28 10:55] LABS: Hemoglobin A1C 7.7 % (<5.7)
[2025-07-28 11:05] LABS: Albumin Level 4.2 g/dL (3.5-5.1); Anion Gap 7 mmol/L (4-12); Blood Urea Nitrogen 17 mg/dL (7-17); Calcium 8.9 mg/dL (8.4-10.2); Carbon Dioxide 28 mmol/L (22-30); Chloride 98 mmol/L (98-107); Estimated Glomerular Filt Rate 60; Glucose 257 mg/dL (65-110); Potassium 4.8 mmol/L (3.4-5.0); Sodium 133 mmol/L (137-145)
--- OUTSIDE RECORDS SUMMARY | 2025-07-28 11:13 | XMS_ITS | Encounter Summary ---
Author Organization [facility] Address [address] [place] [phone] Phone Care Team Providers Care Ore Miner Blasting Name Role Phone German Feliciano MD Primary Care Provider [phone] Reason for Visit * Reason Comments Med Refill Encounter Details Date Type Department Care Team (Late Contact Info) Description 02/17/2025 Refill [facility] [address] [place] [phone] Suleman Lake MD [address] [place] [phone] Social History Tobacco Use Types Packs/Day Years [...] Care Team (Late st Contact Info) Description 07/31/2025 4:00 PM VE TEACHER Office Visit [facility] [address] [place] [phone] Suleman Lake MD [address] [address] documented as of this encounter Visit Diagnoses Not on filedocumented in this encounter Care Teams Ore Miner Blasting Relationship Specialty Start Date End Date German Feliciano MD PCP - General Family Medicine 03/23/22 documented as of this encounter
--- OUTSIDE RECORDS SUMMARY | 2025-07-28 11:13 | XMS_ITS | Clinical Summary ---
Author Organization [facility] [address] Address [address] [place] [address] Care Team Providers Care Porcelain Enameling Supervisor Name Role Phone German Feliciano MD Primary Care Provider [phone] No, Physician Unavailable Allergies Active Allergy Reactions [...] by mouth once a week Active insulin pump cart,cont inf,BT (Omnipod Dash Pods, Gen 4,) cartridge INJECT 1 DEVICE UNDER THE SKIN EVERY THIRD DAY 30 each 03/13/20 24 Active carvediloL (COREG) 6.25 mg tabletIndications: Nonischemic [...] 40 mg tabletIndications: Coronary artery disease involving miami coronary artery of miami heart without angina pectoris,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 90 tablet 3 11/29/19 25 Active ezetimibe (ZETIA) 10 mg tabletIndications: Coronary artery disease involving miami coronary artery of miami heart without angina pectoris,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 Take 1 tablet (10 mg total) by mouth daily 90 tablet 3 11/29/19 25 Active Dexcom G7 Sensor device USE DEVICE CONTINUOUSLY FOR BLOOD SUGAR MONITORING. CHANGE EVERY 10 DAYS. 10 each 3 12/04/19 25 Active insulin lispro (HumaLOG, ADMELOG) 100 unit/mL pen for injectionIndicatio ns:type 1 diabetes mellitus Inject 6-8 units prior to meal 3x/day with correction. or use to fill omnipod insulin pump. Total daily dose- 100 units. E110.65 90 mL 3 01/29/20 25 Active cetirizine (ZyrTEC) 10 mg tabletIndications: Chronic rhinitis Take 1 tablet (10 mg total) by mouth daily 90 tablet 1 04/07/20 25 026 Active sacubitriL-valsart an (Entresto) 97-103 mg tabletIndications: Cardiomyopathy, dilated (HCC),Chronic combined systolic and diastolic CHF (congestive heart failure) (HCC) Take 1 tablet by mouth 2 (two) times a day Please call the office to schedule an appointment. 180 tablet 1 04/14/20 Active insulin regular human 4 unit/8 unit/ 12 unit (60) cartridge, w/inhalation deviceIndications: type 1 diabetes mellitus Inhale 4-16 Units 3 (three) times a day before meals And additional units as needed for glucose control. 48 units daily. Needs the 4,8,12 cartridge box [facility] [id number]. E10.9 30 day supply 180 each 11 04/28/20 Active Active Problems Problem Noted Date Diagnosed Date Dexcom continuous glucose monitoring device 11/2024 Assessment & Plan (04/28/2025 3:28 PM CDT): Continuous glucose monitor (cgm) applied from 04/15/2025 to 04/28/2025 This device was placed for monitor and treatment of blood sugar. Interpretation of data- average glucose 182. 49% time in range. 4% hypoglycemia. 47% hyperglycemia. GMI is 7.7% Assessment & Plan (11/18/2024 4:24 PM OTR DRIVER): Continuous glucose monitor (cgm) applied from 11/05/2024 to 11/18/2024 This device was placed for monitor and treatment of blood sugar. Interpretation of data- average glucose 189. 50% time in range. 1% hypoglycemia. 49% hyperglycemia. GMI is 7.8% Omnipod Dash Insulin pump in place 12/26/2022 Assessment & Plan (04/28/2025 3:27 PM CDT): This is a chronic condition which is worsening and not at goal. Download from 04/14/25- 04/28/25 Type of insulin pump- Omnipod Dash. Basal changed to 0000-1.2, 1100-0.8, 1530-1.15 units/hr IC -12.5 ISF -45 Active insulin time 4hrs. TARGET GLUCOSE -110 Avg Total daily insulin-41 units Avg daily basal- 26 units (63%) Avg daily bolus -15 units (37%) Interpretation: Average blood sugars 231. 20% time in range. 0% hypoglycemia. 80% hyperglycemia . Assessment & Plan (11/18/2024 4:23 PM OTR DRIVER): This is a chronic condition which is [...] to download. She was not connected to [employer] Will upgrade to Omnipod 0 P 5. Start a pack provided in office. message sent to Ewelina from [facility] to set up training Type of insulin pump- Omnipod Dash. Adjustments made. Pump settings : Basal changed to 0000-1.2, 1100-0.8, 1530-1.15 units/hr IC -12.5 ISF -45 Active insulin time 4hrs. TARGET GLUCOSE -110 From previous download Avg Total daily insulin-39 units Avg daily basal- 23 units (59%) Avg daily bolus - 16 units (41%) . Assessment & Plan (10/17/2023 7:19 AM OTR DRIVER): This is a chronic condition which is [...] 10/03/2022 Assessment & Plan (10/17/2023 7:16 AM OTR DRIVER): This is a chronic condition which is [...] atorvastatin Assessment & Plan (10/03/2022 4:46 PM OTR DRIVER): This is a chronic condition which is [...] defibrillator in s itu 01/14/2022 Overview (01/14/2022): [employer] Acticor Single ICD. Dx; NICM. DOI 01/13/2022-[facility]. [employer] remote monitoring. Coronary artery disease invo lving miami coronary artery of miami heart without angina pectoris 01/04/2022 Palpitations 01/04/2022 [...] week. Assessment & Plan (10/17/2023 7:20 AM OTR DRIVER): This is a chronic condition which is [...] prescribed. Assessment & Plan (11/14/2022 6:00 PM OTR DRIVER): This is a chronic condition which is [...] Entresto Assessment & Plan (10/17/2023 7:15 AM OTR DRIVER): This is a chronic condition which is [...] Zetia Assessment & Plan (11/14/2022 5:55 PM OTR DRIVER): This is a chronic condition which is [...] Zetia Assessment & Plan (10/03/2022 4:45 PM OTR DRIVER): This is a chronic condition which is [...] Encounters Date Type Department Care Team Description 04/29/2025 8:15 AM CDT Ancillary Procedure [facility] [address] [place] [phone] Automatic implantable cardiac defibrillator in situ; Cardiomyopathy, dilated (HCC) 04/28/2025 3:30 PM CDT Office Visit [facility] at [address] [phone] Heidy Pena NP Type 1 diabetes mellitus with hyperglycemia (HCC) (Primary Dx); Type 1 diabetes mellitus with hypoglycemia and without coma (HCC); CKD stage 2 due to type 1 diabetes mellitus (HCC); 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; Omnipod Dash Insulin pump in place; Dexcom continuous glucose monitoring device from Last 3 Months Surgical History Surgery Date Site/Laterality Comments INSERT / REPLACE / REMOVE PACEMAKER HYSTERECTOMY Medical History Medical History Date Comments Hyperlipidemia Diabetes mellitus Acid indigestion Pneumonia due to COVID-19 virus Family History Medical History Relation Name Comments No Known Problems Father Hyperlipidemia Mother Heart disease Neg Hx Relation Name Status Comments Father Alive Mother Alive Social History Tobacco Use Types Packs/Day Years Used Date Smoking Tobacco: Former Cigarettes 1.5 35 1 987 - 2021 Smokeless Tobacco: Never Tobacco Cessation:Counseling [...] on file Legal Sex Female 12:49 AM OTR DRIVER Gender Identity Not on file Sexual Orientation Not on file Last Filed Vital Signs Vital Sign Reading Time Taken Comments Blood Pressure 120/74 04/28/2025 3:28 PM CDT Pulse 77 04/07/2025 2:08 PM CDT Temperature 36.6 C (97.9 F) 04/07/2025 2:08 PM CDT Respiratory Rate 18 04/07/2025 2:08 PM CDT Oxygen Saturation 97% 04/07/2025 2:08 PM CDT Inhaled Oxygen Concentration - - Weight 65.6 kg (144 lb 11.2 oz) 04/28/2025 3:28 PM CDT Height 170.2 cm (5' 7) 04/28/2025 3:28 PM CDT Body Mass Index 22.66 04/28/2025 3:28 PM CDT Plan of Treatment Health Maintenance Due Date Last Done Comments Colon Cancer Screening-Colonoscopy 1970 Depression Screening 1970 Hepatitis C Screening 1970 DTaP/Tdap/Td Vaccine (1 - Tdap) 1981 Hepatitis B Screening 1988 Regular Well Visit/Exam 18-64 1988 Pneumococcal vaccine <65 (1 of 2 - PCV) 1989 Breast Cancer Screening-Mammogram 11/27/2015 015 Zoster Vaccine (1 of 2) 2020 TSH Level 09/25/2024 09/25/2023, 01/21/2022 Influenza Vaccine (#1) 2025 Foot Exam 07/08/2025 07/08/2024, 09/19, 07/10/2023, Additional history exists Hemoglobin A1C 10/29/2025 04/28/2025, 11/2024, 07/08/2024, Additional history exists Lipid Panel 11/22/2025 11/22/2024, 0 04/2024, 04/28/2023, Additional history exists Albumin Creatinine Ratio, Urine 01/20/2026 01/20/2025, 07/27/2022, 02/10/2022 eGFR 01/20/2026 01/20/2025, 05/0 01/2025, 09/25/2023, Additional history exists Lung Cancer Screening 03/26/2026 03/25/2025 Dilated Eye Exam 04/28/2026 04/28/2025, 07/08/2024 Procedures Procedure Name Priority Date/Time Associated Diagnosis Comments DEVICE CHECK - REMOTE Routine 04/29/2025 10:11 AM CDT Automatic implantable cardiac defibrillator in situ Cardiomyopathy, dilated (HCC) POCT HEMOGLOBIN A1C Routine 04/28/2025 3 :30 PM CDT Type 1 diabetes mellitus with hyperglycemia (HCC) POCT GLUCOSE Routine 04/28/2025 3:28 PM CDT Type 1 diabetes mellitus with hyperglycemia (HCC) RETINAVUE SCANNER - OU - BOTH EYES Routine 04/28/2025 Type 1 diabetes mellitus with hyperglycemia (HCC) CT LUNG CANCER SCREENING Schedule Routine, Read Routine (OP Routine) 03/25/2025 2:26 PM CDT Cigarette nicotine dependence in remission COMPREHENSIVE METABOLIC PANEL Routine 01/20/2025 ALBUMIN CREATININE RATIO, URINE Routine 01/20/2025 POCT LIPID PANEL Routine 11/22/2024 3:05 PM OTR DRIVER Lipid screening TSH Routine 09/25/2023 DIAGNOSTIC MAMMOGRAM BILATERAL W LEFTY Routine 11/26/2014 10:12 AM CDT from Last 3 Months or Most Recently Relevant to Health Maintenance Results * DEVICE CHECK - REMOTE (04/29/2025 10:11 AM CDT) Anatomical Region Laterality Modality Other Narrative 05/08/2025 9:40 AM CDT [employer] Acticor Single ICD. Dx; NICM. DOI 01/13/2022-[facility]. [employer] remote monitoring. Routine VDI ICD remote. Normal device function. Battery function-TIM, 3.12V-100% remaining battery longevity to KATERINA. Charge time-9.0 seconds. Appropriate lead measurements noted. Presenting rhythm: -VS. COMBAT SYSTEMS ENGINEER-0%. No AT/AF episodes noted. No Ventricular tachy arrhythmias noted. Medications; Coreg, ASA, Entresto. See scanned report. Office device f/u 10/01/2025. [employer] remote follow-up 08/05/2025. Tracie Alberto, RN Zena Khan MD [facility] PRO CEDURES Final Result * (ABNORMAL) POCT hemoglobin A1c (04/28/2025 3:30 PM CDT) Hemoglobin A1C, POC 8.0(A) 4.0 - 5.6 % Blood 04/28/2025 3:30 PM CDT Heidy Pena NP POINT OF CARE TEST ORDERABLES F inal Result * POCT glucose (04/28/2025 3:28 PM CDT) Pathologist [facility] Glucose Blood, POC 198 Normal Fasting 70 - 100, Random <200 mg/dL Blood 04/28/2025 3:28 PM CDT Result [facility] Heidy Pena NP POINT OF CARE TEST ORDERABLES F inal Result * RetinaVue Scanner - OU - Both Eyes (04/28/2025) Anatomical Region Laterality Modality Head Fundus Photograp hy 04/28/2025 Heidy Pena NP OPHTH PHOTOGRAPHY Edited Result - Final * CT Lung Cancer Screening (03/25/2025 2:26 PM CDT) Anatomical Region Laterality Modality Chest N/A Computed Tomogra phy 04/03/2025 7:56 AM CDT Narrative 04/03/2025 8:09 AM CDT EXAM DESCRIPTION: CT LUNG CANCER SCREENING REASON FOR STUDY: Screening CT of the chest in a former smoker with a 36 pack year smoking history. Additional history: None. TECHNIQUE: Low dose CT scan of the chest was performed without intravenous contrast using helical scanning technique. The exam extends from the lung apices through the lung bases. Automatic exposure control was used as a dose optimization technique. NOTE: This study was performed for the specific purposes of lung cancer screening and is not an alternative to diagnostic chest CT. RADIATION DOSE: CT dose index volume (CTDIvol) = 1.09 mGy COMPARISON: None. FINDINGS: SMOKING RELATED LUNG DISEASE: Mild emphysema is noted. LUNG NODULES: Right upper lobe: Benign calcified granuloma. Small nodule not definitively calcified 0.2 cm (series 7, image 95. Ground-glass nodule right upper lobe 0.2 cm (image 100). Ground-nodule 0.3 cm (image 118). Right middle lobe: No significant pulmonary nodules. Right lower lobe: Medial right lower lobe nodule 0.6 cm (series 7, image 164). Left upper lobe: Several small calcified granulomas. Lingula: No significant nodules. Left lower lobe: Few small granulomas. Noncalcified nodule 0.2 cm (image 242). CORONARY ARTERY CALCIFICATION: Coronary artery calcifications are noted. OTHER: Central airways are patent. No pleural or pericardial effusion. Heart size normal. Small pericardial effusion. No pleural effusion or pneumothorax. In the included upper abdomen, no significant abnormalities are seen. There is the left chest cardiac device with leads in place. Bone windows demonstrate no acute or aggressive osseous abnormality. There has an area of sclerosis of an old healed left 6th rib fracture. IMPRESSION: 1. Pulmonary nodules measuring up to 0.6 cm. 2. Mild emphysema. Lung-RADS category 2: Benign appearance or behavior. Recommendation: Low dose Screening CT of chest in 12 months. THIS IS AN ELECTRONICALLY VERIFIED FINAL REPORT 04/03/2025 8:09 AM - Electronically signed by Toy Peña M.D. T: Report ID: [id number] Reading Location: [place] [address] Procedure Note Toy Peña Jr., MD - 04/03/2025 EXAM DESCRIPTION: CT LUNG CANCER SCREENING REASON FOR STUDY: Screening CT of the chest in a former smoker with a 36 pack year smoking history. Additional history: None. TECHNIQUE: Low dose CT scan of the chest was performed without intravenous contrast using helical scanning technique. The exam extends from the lung apices through the lung bases. Automatic exposure control was used as adose optimization technique. NOTE: This study was performed for the specific purposes of lung cancer screening and is not an alternative to diagnostic chest CT. RADIATION DOSE: CT dose index volume (CTDIvol) = 1.09 mGy COMPARISON: None. FINDINGS: SMOKING RELATED LUNG DISEASE: Mild emphysema is noted. LUNG NODULES: Right upper lobe: Benign calcified granuloma. Small nodule notdefinitively calcified 0.2 cm (series 7, image 95. Ground-glass nodule right upperlobe 0.2 cm (image 100). Ground-nodule 0.3 cm (image 118). Right middle lobe: No significant pulmonary nodules. Right lower lobe: Medial right lower lobe nodule 0.6 cm (series 7, [id number]). Left upper lobe: Several small calcified granulomas. Lingula: No significant nodules. Left lower lobe: Few small granulomas. Noncalcified nodule 0.2 cm (image 242). CORONARY ARTERY CALCIFICATION: Coronary artery calcifications are noted. OTHER: Central airways are patent. No pleural or pericardialeffusion. Heart size normal. Small pericardial effusion. No pleural effusion or pneumothorax. In the included upper abdomen, no significant abnormalities are seen.There is the left chest cardiac device with leads in place. Bone windows demonstrate no acute or aggressive osseous abnormality.There has an area of sclerosis of an old healed left 6th rib fracture. IMPRESSION: 1. Pulmonary nodules measuring up to 0.6 cm. 2. Mild emphysema. Lung-RADS category 2: Benign appearance or behavior. Recommendation: Low dose Screening CT of chest in 12 months. THIS IS AN ELECTRONICALLY VERIFIED FINAL REPORT 04/03/2025 8:09 AM - Electronically signed by Toy Peña M.D. T: Report ID: [id number] Reading Location: [place] [address] Navya Blanco MD IM CT PROCEDURES Final Resul t * Albumin Creatinine Ratio, Urine (01/20/2025) SCRIBED Creatinine, Urine 12.1 - - - EXTERNAL LAB SCRIBED Microalbumin 12.1 - - - EXTERNAL LAB SCRIBED Microalb/Creat Ratio 100.0 EXTERNAL LAB Urine 01/20/2025 Historical Provider MD LAB URINE ORDERABLES Clarissa l Result Performing Organization Address [facility] Co de Phone Number EXTERNAL LAB * Comprehensive metabolic panel (01/20/2025) SCRIBED Sodium 140 - - - mmol/L EXTERNAL LAB SCRIBED Potassium 3.9 - - - mmol/L EXTERNAL LAB SCRIBED Chloride 109 - - - mmol/L EXTERNAL LAB SCRIBED Carbon Dioxide 25 - - - mmol/L EXTERNAL LAB SCRIBED Anion Gap 6 - - - mmol/L EXTERNAL LAB SCRIBED Urea Nitrogen (BUN) 18 - - - mg/dl EXTERNAL LAB SCRIBED Creatinine 0.71 - - - mg/dl EXTERNAL LAB SCRIBED Glucose 42 - - - mg/dl EXTERNAL LAB SCRIBED Calcium 8.9 - - - mg/dl EXTERNAL LAB SCRIBED Bilirubin 0.4 - - - mg/dl EXTERNAL LAB SCRIBED Plasma Protein 7.0 - - - g/dl EXTERNAL LAB SCRIBED Albumin 4.1 - - - g/dl EXTERNAL LAB SCRIBED Alkaline Phosphatase 100 - - - Units/L EXTERNAL LAB SCRIBED Alanine Transaminase (ALT) 34 - - - Units/L EXTERNAL LAB SCRIBED Aspartate Transaminase (AST) 44 - - - Units/L EXTERNAL LAB SCRIBED eGFR 60 - - - EXTERNAL LAB SCRIBED eGFR 60 - - - EXTERNAL LAB Blood 01/20/2025 Historical Provider LAB BLOOD ORDERABLES Clarissa l Result EXTERNAL LAB * POCT lipid panel (11/22/2024 3:05 PM OTR DRIVER) Cholesterol, POC 100 mg/dL HDL, POC 22 mg/dL Triglycerides, POC 65 mg/dL LDL Cholesterol POC 64 mg/dL Chol/HDL Ratio, POC - Non-HDL Cholesterol, POC - mg/dL Cholesterol Total, POC 100 mg/dL Capillary blood 11/22/2024 3 :05 PM OTR DRIVER Vida Wagner NP POINT OF CARE TEST ORDERA BLES Final Result * TSH (09/25/2023) Scribed TSH 0.68 0.47 [...] signed by: Dr. Doug Britton nh/:11/26/2014 11:06:53 Environmental Protection Officer: Yesika BOURNE (Keagan)(M), [facility] letter sent: MG & US Done-Normal Reading [...] 01/10/2013 mammogram and ultrasound, and 11/17/2010 mammogram [facility]. BREAST TISSUE: There are scattered areas of fibroglandular density. MAMMOGRAPHIC FINDINGS: A radiopaque BB was placed over the palpable lump in the upper outer left breast. At this site at 2 o'clock posterior depth, there is a benign-appearing 6 mm lymph node. There is no other suspicious abnormality in this area. The fysxb-wv-diy density mass in the central, slightly lateral [...] Note Provider, MD Jimena - 02/02/2021 - [facility] BILAT DIAGNOSTIC 3D W/CAD BILATERAL DIGITAL [...] ultrasound, 01/10/2013 mammogram and ultrasound, [facility] BREAST TISSUE: There are scattered areas of fibroglandular density. MAMMOGRAPHIC FINDINGS: A radiopaque BB was placed over the palpable lumpin the upper outer left breast. At this site at 2 o'clock posterior depth,there is a benign-appearing 6 mm lymph node. There is no other suspiciousabnormality in this area. The jndwx-kf-pfj density mass in the central, slightly lateral [...] in 1 year. This was discussed with Sherry. Electronically signed by: Dr. Doug Britton nh/:11/26/2014 11:06:53 Environmental Protection Officer: Yesika BOURNE (Keagan)(Chintan), [facility] letter sent: MG & US Done-Normal Reading location: BI-RADS: 2 Benign [EOD] us Tonie Cook MD IMG MAMMO PROCEDURES Final Resu lt from Last 3 Months or Most Recently Relevant to Health Maintenance Insurance [facility] Care Teams Porcelain Enameling Supervisor Relationship Specialty Start Date End Date German Feliciano MD PCP - General Emergency Medicine 11/24/21 No, Physician 10/05/21
--- OUTSIDE RECORDS SUMMARY | 2025-07-28 11:13 | XMS_ITS | Clinical Summary ---
Author Organization [facility] Address [address] [place] [address] Care Team Providers Care Apiculturist Name Role Phone German Feliciano MD Primary Care Provider [phone] Source Comments [facility],non-owned Affiliates and Associated Physician Practices is amultiple site organization consisting of ambulatory clinics and hospital sitesin [place], [place] and [place]. This disclosure is being madepursuant to the Care Everywhere program and may not contain all information available regarding this patient. Last updated 18.[facility] Allergies Active Allergy Reactions Criticality Noted Date [...] 11/05/19 23 Active Blood Glucose Monitoring Suppl ([employer] Verio Flex System) w/Device KIT as directed 07/26/20 22 Active fluticasone propionate (Flonase) 50 MCG/ACT nasal spray USE 1 SPRAY(S) IN EACH NOSTRIL TWICE DAILY 07/11/20 22 Active [employer] Verio test strip USE DIRECTED THREE TIMES DAILY 05/14/20 23 Active TRUEplus 5-Bevel Pen [place] 31G X 8 MM needle INJECT INSULIN [...] 8:56 AM CDT Height 171.5 cm (5' 7.5) 06/22/2023 8:56 AM CDT Body Mass Index [...] - COLON CA SCREENING 1970 MAMMOGRAM 1970 HIV SCREENING 1985 HEPATITIS C SCREENING 10/25/1988 DTAP/TDAP/TD VACCINES (1 - Tdap) 1989 HEPATITIS B VACCINE (1 of 3 - 19+ 3-dose series) 1989 PAP SMEAR 1991 PNEUMOCOCCAL VACCINE 50+ (1 of 1 - PCV) 2020 ZOSTER VACCINE (1 of 2) 2020 DEPRESSION SCREENING 09/18/2024 COVID-19 VACCINE (1 - 2023-2 5 season) 2025 INFLUENZA VACCINE (#1) 2025 HIB VACCINE Aged Out No longer [...] patient's age to complete this topic Insurance [facility] Care Teams Apiculturist Relationship Specialty Start Date End Date German Feliciano MD [address] [address] PCP - General Family Medicine 06/08/23
--- OUTSIDE RECORDS SUMMARY | 2025-07-28 11:13 | XMS_ITS | Clinical Summary ---
Author Organization [facility] Address [address] [place] [id number] Phone Care Team Providers Care Neon Sign Installer Name Role Phone German Feliciano MD Primary Care Provider [phone] Allergies Active Allergy Reactions Criticality Noted Date Comments Latex Rash Medium 10/27/2021 Medications aspirin 81 MG chewable tablet 10/05/2021 Act paul atorvastatin (LIPITOR) 40 MG tablet Take 40 mg by mouth in the morning. 12/02/2021 Active insulin glargine (LANTUS) 100 UNIT/ML injection 24 Units 1 (one) time each day 18 units nightly 12/06/2021 Active sacubitril-vals janine (ENTRESTO) 97-103 MG per tablet Take 1 tablet by mouth in the morning and 1 tablet in the evening. 11/24/2021 Active ezetimibe (ZETIA) 10 MG tablet Take 10 mg by mouth 1 (one) time each day Active carvedilol (COREG) 25 MG tablet Take 25 mg by mouth in the morning and 25 mg in the evening. Take with meals. Active furosemide (LASIX) 20 MG tablet Take 20 mg by mouth 1 (one) time each day Active INSULIN REGULAR HUMAN IN Inhale Inhale 4/16 units tid before meals Active Insulin Lispro 100 UNIT/ML solution Inject as directed Inject 6/8 units prior to meal tid Active ergocalciferol (VITAMIN D-2) 1.25 MG (17445 UT) capsule Take 1 capsule (50,000 Units total) by mouth every 30 (thirty) days 3 capsule 1 02/19/2025 Active Farxiga 10 MG tablet TAKE 1 TABLET BY MOUTH IN THE MORNING 90 tablet 05/22/2025 Active Active Problems Problem Noted Date Diagnosed [...] Encounters Date Type Department Care Team Description 05/22/2025 Refill [facility] [address] [facility] [address] [place] [address] Suleman Lake MD from Last 3 Months Social History Tobacco Use Types Packs/Day Years Used Date Smoking Tobacco: Every Day Smokeless Tobacco: Never Comments Unknown Sex and Gender Information Value Date Recorded Sex Assigned at Not on file Legal Sex Female 2:20 PM MDT Gender Identity Not on file Sexual Orientation Not on file Last Filed Vital Signs Vital Sign Reading Time Taken Comments Blood Pressure 142/78 01/30/2025 3:48 PM CDT Pulse 65 01/30/2025 3:48 PM CDT Temperature - - Respiratory Rate - - Oxygen Saturation 91% 06/01/2023 3:21 PM CDT Inhaled Oxygen Concentration - - Weight 65.3 kg (144 lb) 01/30/2025 3:48 PM CDT Height 170.2 cm (5' 7) 01/30/2025 3:48 PM CDT Body Mass Index 22.55 01/30/2025 3:48 PM CDT Plan of Treatment Upcoming Encounters Date Type Department Care Team ([facility] st Contact Info) Description 07/31/2025 4:00 PM BANANA EXPERT Office Visit [facility] [address] [facility] [address] [place] [address] Suleman Lake MD [address] [address] Health Maintenance Due Date Last Done Comments Diabetic Foot Exam 1980 Ophthalmology Exam 1980 Pneumococcal PPSV23 Highest Risk Adult (1 of 3 - PCV13 ) 1989 Influenza Vaccine (#1) 2025 Insurance [employer] Care Teams Neon Sign Installer Relationship Specialty Start Date End Date German Feliciano MD PCP - General Family Medicine 03/23/22
--- OUTSIDE RECORDS SUMMARY | 2025-07-28 11:13 | XMS_ITS | Encounter Summary ---
Author Organization [facility] Address [address] [place] [phone] Phone Care Team Providers Care Director Recreation Name Role Phone German Feliciano MD Primary Care Provider Reason for Visit * Reason Comments Med Change Request Encounter Details Date Type Department Care Team (Late Contact Info) Description 06/06/2024 Refill [facility] [address] [place] [id number] Suleman Lake MD [address] [place] [phone] Social History Tobacco Use Types Packs/Day Years [...] st Contact Info) Description 07/31/2025 4:00 PM [employer]IP[employer] Office Visit [facility] [address] [place] [id number] Suleman Lake MD [address] [address] documented as of this encounter Visit Diagnoses Not on filedocumented in this encounter Care Teams Director Recreation Relationship Specialty Start Date End Date German Feliciano MD PCP - General Family Medicine 03/23/22 documented as of this encounter
[2025-07-28 11:14] LABS: Total Protein Urine Random 13 mg/dL; Ur Ttl Prot Creatinine Ratio 1.34 mg/mg (0-0.20)
== END 2025-07-28 10:23 | disposition home or self-care (01) ==
LOC: ANHLAB 10:25
PROVIDERS: PCP Emergency Medicine; Visit Provider Hospitalist
DX: I12.9 Hypertensive chronic kidney disease with stage 1 through stage 4 chronic kidney disease, or unspecified chronic kidney disease (principal); N18.2 Chronic kidney disease, stage 2 (mild)
CPT/HCPCS: 36415; 80069; 81003; 82306; 82570; 83036; 84156; 85025